=== PATIENT | male | born 1950 | race Two or more races ===

== ENCOUNTER 2017-07-31 13:17 | Outpatient (CLI) | payer MEDICARE, MEDICAID ==
[~2017-07-31 13:17] MED LIST: BYSTOLIC 10MG10 MG PO; CARAFATE1 G1 ORAL; CIMETIDINE800 MG ORAL; CLINDAMYCIN HC300 MG ORAL; DIOVAN80 MG ORAL; FENOFIBRATE130 MG; FINASTERIDE5 MG; GABAPENTIN300 MG PO; GLUCOPHAGE500 MG ORAL; HYDROCODON-ACE1 EA16 PO; INTELENCE200 MG PO; ISENTRESS400 MG ORAL; LEVEMIR100 UNITS/ SQ; LEVOTHYROXINE50 MCG; LIVALO4 MG PO; LORAZEPAM1 MG PO; MONTELUKAST SOD10 MG; MONTELUKAST SOD10 MG PO; NORCO 10/3251 EA ORAL; NORCO 5-325 TA1 EACH ORAL; PAROXETINE HCL20 MG PO; PRISTIQ ER50 MG PO; PROAIR HFA8.5 GM INH; SELZENTRY150 MG ORAL; SELZENTRY150 MG PO; SPIRIVA18 MCG; SYNTHROID50 MCG ORAL; TESTOSTERO200 MG/1 M IM; TRUVADA 200 MG1 EAC1 PO; TRUVADA1 TAB; Vit D PO; XARELTO10 MG PO; XARELTO20 MG; vit d PO
--- NOTE | 2017-07-31 15:00 | Diagnostic Imaging Report ---
APPROVED REPORT CPT Code: 22889 Symptoms Comments: Claudication BILATERAL: Common femoral artery waveform analysis is within normal limits at rest. Color flow duplex sonography reveals minimal calcification throughout the superficial femoral, and popliteal arteries. There is no evidence of stenosis or occlusion within these segments. The tibioperoneal trunks were patent. The posterior tibial, anterior tibial and dorsalis pedis arteries are also patent. JAVIER: Ankle brachial indices and Doppler tibial artery waveform analyses are within Right Leg JAVIER 1.1 Left Leg JAVIER 1.1
== END 2017-07-31 15:17 | disposition home or self-care (01) ==
LOC: VAS 13:17
DX: I73.9 Peripheral vascular disease, unspecified (principal)
CPT/HCPCS: 93925

== ENCOUNTER 2018-05-21 10:21 | Outpatient (CLI) | payer MEDICARE, MEDICAID ==
--- NOTE | 2018-05-21 11:10 | Diagnostic Imaging Report ---
Indication: Osteoporosis Technique: 10 mm thick slices obtained through the L2, L3, and L4 vertebral bodies. Cortical and trabecular regions of interest were drawn. The average trabecular bone mineral density was calculated. Total dose length product 44.52 mGycm. CTDIvol(s) 7, 8, 7 mGy. Dose reduction achieved using automated exposure control Comparison: none Findings: The calculated bone mineral density is 84.9 mg ca-PRINCE/ml. The T score is -3.39. This indicates the patient's bone mineral density is 3.39 standard deviations below that of normal 20-year-old males. The Z score is -0.48. This indicates the patient's bone mineral density is 0.48 standard deviations below that of age-matched controls Impression: Patient's bone mineral density is greater than 25% below that of normal 20-year-old males. Patient is considered osteoporotic by WHO criteria. Insufficiency fracture risk is high. Patient should be considered for therapy, if not already initiated, with followup scan in one year to monitor response to therapy. The CT scanner at [facility] is accredited by the [employer] and the scans are performed using protocols designed to limit radiation exposure to as low as reasonably achievable to attain images of sufficient resolution adequate for diagnostic evaluation.
== END 2018-05-21 12:21 | disposition home or self-care (01) ==
LOC: CAT 10:21
DX: M81.0 Age-related osteoporosis without current pathological fracture (principal)
CPT/HCPCS: 77078

== ENCOUNTER 2018-08-30 19:48 | Inpatient (IN) | payer MEDICARE, MEDICAID ==
[~2018-08-30] VITALS: Ht 170.2 cm; Wt 104.8 kg
[2018-08-30 20:20] VITALS: BP 139/82
[2018-08-30 21:24] LABS: APPEARANCE,URINE CLEAR; BILIRUBIN, URINE NEGATIVE (NEGATIVE); COLOR,URINE PALE YELLOW; GLUCOSE, URINE (UA) 1+ (NEGATIVE); KETONES,URINE NEGATIVE (NEGATIVE); LEUKOCYTE ESTERASE ,URINE NEGATIVE (NEGATIVE); NITRITE,URINE NEGATIVE (NEGATIVE); PH,URINE 5 (4.5-8.0); PROTEIN,URINE 1+ (NEGATIVE); UROBILINOGEN,URINE NORMAL MG/DL (0.0-1.0)
[2018-08-30] MEDS ORDERED: Vancomycin 1.5gm/D5W 250ml 250 ML IVPB ONE (22:00)
[2018-08-30 22:10] LABS: BASOPHILS % (AUTO) 1.2 % (0.0-2.0); HEMATOCRIT 37.9 % (42.0-52.0); HEMOGLOBIN 13.4 G/DL (14.2-18.0); LYMPHOCYTES % (AUTO) 41.6 % (20.0-45.0); MEAN CORPUSCULAR VOLUME 89 FL (80-99); MONOCYTES % (AUTO) 8.7 % (1.0-10.0); NEUTROPHILS % (AUTO) 46.5 % (45.0-75.0); PLATELET COUNT 142 K/UL (150-450); RED BLOOD COUNT 4.24 M/UL (4.70-6.10); RED CELL DISTRIBUTION WIDTH 10.8 % (11.6-14.8); WHITE BLOOD COUNT 4.1 K/UL (4.8-10.8)
[2018-08-30] MEDS ORDERED: Norco 5mg/325mg tab ORAL PRN (22:30)
[2018-08-30] MEDS ORDERED: Miralax 17gm pkt ORAL PRN (22:30)
[2018-08-30 22:33] LABS: ANION GAP 8 mmol/L (5-15); BLOOD UREA NITROGEN 19 mg/dL (7-18); CALCIUM 8.7 MG/DL (8.5-10.1); CARBON DIOXIDE 30 MMOL/L (21-32); CHLORIDE 101 MMOL/L (98-107); CREATININE 1.4 MG/DL (0.55-1.30); POTASSIUM 3.8 MMOL/L (3.5-5.1); SODIUM 138 MMOL/L (136-145)
[2018-08-30 22:38] LABS: ALANINE AMINOTRANSFERASE 53 U/L (12-78); ALBUMIN 3.9 G/DL (3.4-5.0); ALKALINE PHOSPHATASE 92 U/L (46-116); ASPARTATE AMINO TRANSFERASE 26 U/L (15-37); BILIRUBIN,TOTAL 0.3 MG/DL (0.2-1.0)
[2018-08-30] MEDS ORDERED: Albuterol/Ipratropium 3ml neb HHN PRN (22:45)
[2018-08-30] MEDS: Docusate 100mg cap ORAL SCH ×2 (22:45→23:52)
--- NOTE | 2018-08-30 22:51 | Emergency Room Report ---
History of Present Illness General Chief Complaint: Skin Rash/Abscess Source: Patient Present Illness HPI 67-year-old male presents ED complaining of pain to his right lower extremity. States he has an ulcer on his right leg for several months now but is getting progressively worse. Has not sought medical attention for it yet. Pain is throbbing, 8 out of 10, nonradiating. Notes history of HIV. States he is diabetic. Denies fevers or chills. No other aggravating relieving factors. Denies any other associated symptoms Allergies: Coded Allergies: ABACAVIR (Verified Allergy, Unknown, 01/29/09) DIDANOSINE (Verified Allergy, Unknown, 01/29/09) EFAVIRENZ (Verified Allergy, Unknown, 01/29/09) FOSAMPRENAVIR (Verified Allergy, Unknown, 01/29/09) INDINAVIR (Verified Allergy, Unknown, 08/30/18) SULFAMETHOXAZOLE (Verified Allergy, Unknown, 01/29/09) TRIMETHOPRIM (Verified Allergy, Unknown, 01/29/09) HYDROMORPHONE (Verified Adverse Reaction, Unknown, VOMITS, 06/12/12) Patient History Past Medical History: DM, HTN, asthma, COPD Pertinent Family History: none Social History: Denies: smoking, alcohol use, drug use Immunizations: UTD Reviewed Nursing Documentation: PMH: Agreed; PSxH: Agreed Nursing Documentation-PMH Hx Cardiac Problems: Yes Hx Hypertension: Yes Hx Pacemaker: No - HIV positive Hx Asthma: Yes Hx COPD: Yes Hx Diabetes: Yes Hx Cancer: Yes - lymphoma Hx Gastrointestinal Problems: Yes Hx Neurological Problems: No Hx Dizziness: Yes Review of Systems All Other Systems: negative except mentioned in HPI Physical Exam Vital Signs Date Time Temp Pulse Resp B/P (MAP) Pulse Ox O2 Delivery O2 Flow Rate FiO2 08/30/18 20:07 97.5 87 18 139/82 95 Room Air Sp02 EP Interpretation: reviewed, normal General Appearance: no apparent distress, alert, GCS 15, non-toxic Head: normocephalic, atraumatic Eyes: bilateral eye normal inspection, bilateral eye PERRL ENT: hearing grossly normal, normal pharynx, no angioedema, normal voice Neck: full range of motion, supple/symm/no masses Respiratory: chest non-tender, lungs clear, normal breath sounds, speaking full sentences Cardiovascular #1: regular rate, rhythm, no edema Cardiovascular #2: 2+ carotid (R), 2+ carotid (L), 2+ radial (R), 2+ radial (L) , 2+ dorsalis pedis (R), 2+ dorsalis pedis (L) Gastrointestinal: normal bowel sounds, non tender, soft, non-distended, no guarding, no rebound Rectal: deferred Genitourinary: normal inspection, no CVA tenderness Musculoskeletal: swelling - RLE Neurologic: alert, oriented x3, responsive, motor strength/tone normal, sensory intact, speech normal Psychiatric: normal inspection Reflexes: 3+ bicep (R), 3+ bicep (L), 3+ tricep (R), 3+ tricep (L), 3+ knee (R) , 3+ knee (L) Skin: other - ulcer to RLE Lymphatic: normal inspection Medical Decision Making Diagnostic Impression: Primary Impression: HIV (human immunodeficiency virus infection) Additional Impression: Cellulitis of right leg ER Course Hospital Course 67-year-old male presents to ED with redness, swelling to RLE Differential diagnoses include: Cellulitis, DVT, abscess, rash. Clinical course Patient placed on stretcher. After initial history and physical I ordered labs , blood Cx, UA, IVFs, doppler US of RLE labs reviewed - no leukocytosis, Hb/Hct stable, no electrolyte abnormalities. Doppler US - no evidence of DVT wound culture obtained antibiotics given. Case discussed with Dr Aamdor and he agreed to accept the patient to his service for further care and support Diagnosis - HIV, cellulitis of right leg Patient admitted to floor in serious condition Labs Test 08/30/18 21:06 08/30/18 21:30 Urine Color Pale yellow Urine Appearance Clear Urine pH 5 (4.5-8.0) Urine Specific [place] 1.025 (1.005-1.035) Urine Protein 1+ (NEGATIVE) Urine Glucose (UA) 1+ (NEGATIVE) Urine Ketones Negative (NEGATIVE) Urine Blood 1+ (NEGATIVE) Urine Nitrite Negative (NEGATIVE) Urine Bilirubin Negative (NEGATIVE) Urine Urobilinogen Normal MG/DL (0.0-1.0) Urine Leukocyte Esterase Negative (NEGATIVE) Urine RBC 2-4 /HPF (0 - 0) Urine WBC 0-2 /HPF (0 - 0) Urine Squamous Epithelial Cells None /LPF (NONE/OCC) Urine Bacteria Few /HPF (NONE) White Blood Count 4.1 K/UL (4.8-10.8) Red Blood Count 4.24 M/UL (4.70-6.10) Hemoglobin 13.4 G/DL (14.2-18.0) Hematocrit 37.9 % (42.0-52.0) Mean Corpuscular Volume 89 FL (80-99) Mean Corpuscular Hemoglobin 31.6 PG (27.0-31.0) Mean Corpuscular Hemoglobin Concent 35.3 G/DL (32.0-36.0) Red Cell Distribution Width 10.8 % (11.6-14.8) Platelet Count 142 K/UL (150-450) Mean Platelet Volume 7.4 FL (6.5-10.1) Neutrophils (%) (Auto) 46.5 % (45.0-75.0) Lymphocytes (%) (Auto) 41.6 % (20.0-45.0) Monocytes (%) (Auto) 8.7 % (1.0-10.0) Eosinophils (%) (Auto) 2.0 % (0.0-3.0) Basophils (%) (Auto) 1.2 % (0.0-2.0) Sodium Level 138 MMOL/L (136-145) Potassium Level 3.8 MMOL/L (3.5-5.1) Chloride Level 101 MMOL/L (98-107) Carbon Dioxide Level 30 MMOL/L (21-32) Anion Gap 8 mmol/L (5-15) Blood Urea Nitrogen 19 mg/dL (7-18) Creatinine 1.4 MG/DL (0.55-1.30) Estimat Glomerular Filtration Rate 50.9 mL/min (>60) Glucose Level 227 MG/DL (74-106) Lactic Acid Level 2.20 mmol/L (0.4-2.0) Calcium Level 8.7 MG/DL (8.5-10.1) Total Bilirubin 0.3 MG/DL (0.2-1.0) Aspartate Amino Transf (AST/SGOT) 26 U/L (15-37) Alanine Aminotransferase (ALT/SGPT) 53 U/L (12-78) Alkaline Phosphatase 92 U/L (46-116) Total Protein 8.0 G/DL (6.4-8.2) Albumin 3.9 G/DL (3.4-5.0) Globulin 4.1 g/dL Albumin/Globulin Ratio 1.0 (1.0-2.7) CT/MRI/US Diagnostic Results CT/MRI/US Diagnostic Results : Imaging Test Ordered: Venous Duplex Impression no evidence of DVT Last Vital Signs Date Time Temp Pulse Resp B/P (MAP) Pulse Ox O2 Delivery O2 Flow Rate FiO2 08/30/18 20:20 97.5 82 18 139/82 95 Room Air Status: improved Disposition: ADMITTED INPATIENT Condition: Serious Referrals: NON PHYSICIAN (PCP) Shree Baker MD Aug 30, 2018 22:51
[2018-08-30] MEDS: HYDROcodone/Acetamin 7.5/325 tab ORAL PRN (23:51)
[2018-08-31] VITALS (7 sets, daily range): BP systolic 137–149; BP diastolic 70–88
[2018-08-31] MEDS ORDERED: NIACIN500 M3 PO (03:53)
[2018-08-31] MEDS ORDERED: BENICAR20 MG ORAL (03:53)
[2018-08-31] MEDS ORDERED: ASPIRIN81 M3 PO (03:53)
[2018-08-31] MEDS ORDERED: FUROSEMIDE20 M1 ORAL (03:53)
[2018-08-31] MEDS ORDERED: TIVICAY50 MG ORAL (03:53)
[2018-08-31] MEDS ORDERED: ZOVIRAX OINT1 APPLI1 TOPIC ×2 (03:53)
[2018-08-31] MEDS ORDERED: ECONAZOLE NITRA30 GM TP (03:53)
[2018-08-31] MEDS ORDERED: ZANTAC150 MG ORAL (03:53)
[2018-08-31] MEDS ORDERED: DIPHENHYDRAMINE50 M1 ORAL (03:53)
[2018-08-31] MEDS: HYDROcodone/Acetamin 7.5/325 tab ORAL PRN ×3 (06:01→23:25)
[2018-08-31] MEDS: NovoLOG Insulin Flexpen SUBQ SCH ×4 (06:03→20:30)
[2018-08-31 07:07] LABS: ANION GAP 10 mmol/L (5-15); BLOOD UREA NITROGEN 19 mg/dL (7-18); CALCIUM 8.4 MG/DL (8.5-10.1); CARBON DIOXIDE 26 MMOL/L (21-32); CHLORIDE 102 MMOL/L (98-107); CREATININE 1.2 MG/DL (0.55-1.30); POTASSIUM 3.9 MMOL/L (3.5-5.1); SODIUM 138 MMOL/L (136-145)
[2018-08-31 07:19] LABS: HEMATOCRIT 35.8 % (42.0-52.0); HEMOGLOBIN 12.6 G/DL (14.2-18.0); MEAN CORPUSCULAR VOLUME 91 FL (80-99); PLATELET COUNT 108 K/UL (150-450); RED BLOOD COUNT 3.93 M/UL (4.70-6.10); RED CELL DISTRIBUTION WIDTH 11.1 % (11.6-14.8); WHITE BLOOD COUNT 2.9 K/UL (4.8-10.8)
--- NOTE | 2018-08-31 08:23 | History and Physical ---
History of Present Illness General Date patient seen: Aug 31, 2018 Time patient seen: 08:14 Reason for Hospitalization: Skin Rash/Abscess Present Illness HPI 67 yo male with h/o HIV, DM, HTN presents with complainst of pain of his right LE. states he has an ulcer of the right leg for 1 month and has been getting worse. States pain is 8/10, throbbing in nature, nonradiating. Denies any fevers /chills, no nausea/vomiting. States he is compliant with his medications at home. Social Hx: reviewed denies any smoking, alcohol use, or drug use fam hx: reviewed, denies any sig past fam hx. code status reviewed, would like to remain full code. 67-year-old male presents ED complaining of pain to his right lower extremity. States he has an ulcer on his right leg for several months now but is getting progressively worse. Has not sought medical attention for it yet. Pain is throbbing, 8 out of 10, nonradiating. Notes history of HIV. States he is diabetic. Denies fevers or chills. No other aggravating relieving factors. Denies any other associated symptoms Allergies: Coded Allergies: ABACAVIR (Verified Allergy, Unknown, 01/29/09) DIDANOSINE (Verified Allergy, Unknown, 01/29/09) EFAVIRENZ (Verified Allergy, Unknown, 01/29/09) FOSAMPRENAVIR (Verified Allergy, Unknown, 01/29/09) INDINAVIR (Verified Allergy, Unknown, 08/30/18) SULFAMETHOXAZOLE (Verified Allergy, Unknown, 01/29/09) TRIMETHOPRIM (Verified Allergy, Unknown, 01/29/09) HYDROMORPHONE (Verified Adverse Reaction, Unknown, VOMITS, 06/12/12) Medication History Scheduled Acyclovir (Zovirax), 1 APPLIC TOPIC PRN, (Reported) Albuterol Sulfate* (Proair Hfa*), 2 PUFFS INH Q6H, (Reported) Aspirin (Aspirin), 81 MG PO DAILY, (Reported) Bysto (Bystolic), 10 MG PO BID, (Reported) Cimetidine (Cimetidine), 1,600 MG ORAL BEDTIME, (Reported) Clindamycin Hcl (Clindamycin Hcl), 300 MG ORAL FOUR TIMES A DAY Desvenlafaxine Succinate (Pristiq Er), 50 MG PO DAILY, (Reported) Dolutegravir Sodium (Tivicay), 50 MG ORAL DAILY, (Reported) Econazole Nitrate (Econazole Nitrate), 30 GM TP PRN, (Reported) Etravirine (Intelence), PO BID, (Reported) Fenofibrate,Micronized (Fenofibrate), DAILY, (Reported) Finasteride (Finasteride), DAILY, (Reported) Furosemide* (Lasix*), 20 MG ORAL DAILY, (Reported) Gabapentin* (Gabapentin*), 300 MG PO TID, (Reported) Hydrocodone/Acetaminophen 7.5-325* (Hydrocodon-Acetaminoph 7.5-325*), 1 EACH PO q6h prn, (Reported) Insulin Detemir (Levemir), 30 UNITS SQ DAILY, (Reported) Levothyroxine Sodium (Synthroid), 50 MCG ORAL DAILY, (Reported) Levothyroxine Sodium* (Levothyroxine Sodium*), ACBREAKFAST, (Reported) Lorazepam* (Lorazepam*), 1 MG PO q8h prn, (Reported) Maraviroc* (Selzentry*), 600 MG ORAL EVERY 12 HOURS, (Reported) Metformin Hcl* (Glucophage*), 1,000 MG ORAL TWICE A DAY, (Reported) Montelukast Sodium* (Montelukast Sodium*), DAILY, (Reported) Niacin (Niacin), 500 MG PO DAILY, (Reported) Olmesartan Medoxomil (Benicar), 20 MG ORAL DAILY, (Reported) Paroxetine Hcl* (Paxil*), 20 MG PO DAILY, (Reported) Pitavastatin Calcium (Livalo), 4 MG PO HS, (Reported) Ranitidine Hcl* (Zantac*), 150 MG ORAL DAILY, (Reported) Rivaroxaban (Xarelto*), 10 MG PO DAILY, (Reported) Sucralfate* (Carafate*), 1 GM ORAL FIVE TIMES A DAY, (Reported) Tiotropium [place]* (Spiriva*), DAILY, (Reported) Valsartan (Diovan), 80 MG ORAL DAILY, (Reported) Scheduled PRN Diphenhydramine Hcl (Diphenhydramine Hcl), 50 MG ORAL BEDTIME PRN for Itching, ( Reported) Hydrocodone Bit/Acetaminophen 5-325* ([place] 5-325*), 1 TAB ORAL Q6H PRN for For Pain Miscellaneous Medications Acyclovir (Zovirax), 1 APPLIC TOPIC, (Reported) Discontinued Medications Emtricitabine/Tenofovir (Truvada 200 mg-300 mg Tablet), DAILY, (Reported) Discontinued Reason: Pt stopped taking med Raltegravir (Isentress), 400 MG ORAL BID, (Reported) Discontinued Reason: Pt stopped taking med Patient History History Provided By: Patient Healthcare decision maker Resuscitation status Full Code Advanced Directive on File Family History Family History: Patient reports no known family medical history. Review of Systems Constitutional: Denies: no symptoms, see HPI, chills, sweats, fever, malaise, weakness, other Eye: Denies: no symptoms, see HPI, eye pain, blurred vision, tearing, double vision, nose pain, nose congestion, acuity changes, discharge, other ENT: Denies: no symptoms, see HPI, ear pain, ear discharge, nose pain, nose congestion, throat pain, throat swelling, mouth pain, hearing loss, nasal discharge, other Respiratory: Denies: no symptoms, see HPI, cough, orthopnea, shortness of breath, stridor, wheezing, LANDRY, sputum, other Cardiovascular: Denies: no symptoms, see HPI, chest pain, edema, palpitations, syncope, PND, other Gastrointestinal: Denies: no symptoms, see HPI, abdominal pain, constipation, diarrhea, nausea, vomiting, melena, hematemesis, other Genitourinary: Denies: no symptoms, see HPI, discharge, dysuria, frequency, hematuria, pain, retention, incontinence, urgency, vag bleed/dc, other Musculoskeletal: Denies: no symptoms, see HPI, back pain, gout, joint pain, joint swelling, muscle pain, muscle stiffness, other Skin: Reports: change in color - clear drainage from right lower extremity ; Denies: no symptoms, see HPI, rash, change in hair/nails, dryness, lesions, other Psychiatric: Denies: no symptoms, see HPI, prior hx, anxiety, depressed feelings, emotional problems, SI, HI, hallucinations, other Neurological: Denies: no symptoms, see HPI, headache, numbness, paresthesia, seizure, tingling, tremors, focal weakness, syncope, dizziness, other Endocrine: Denies: no symptoms, see HPI, excessive sweating, flushing, intolerance to temperature, increased thirst, increased urine, unexplained weight loss, other Hematologic/Lymphatic: Denies: no symptoms, see HPI, anemia, blood clots, easy bleeding, easy bruising, swollen glands, diathesis, other Physical Exam General Appearance: no apparent distress, alert Lines, tubes and drains: peripheral HEENT: normocephalic, atraumatic, anicteric, mucous membranes moist, PERRL Neck: non-tender, normal alignment, supple, normal inspection Respiratory/Chest: chest wall non-tender, lungs clear, normal breath sounds, no respiratory distress, no accessory muscle use Cardiovascular/Chest: normal peripheral pulses, normal rate, regular rhythm Abdomen: normal bowel sounds, non tender, soft, no organomegaly, no mass Extremities: normal range of motion, other - right LE mild ttp at area of ulcer Skin Exam: normal pigmentation, warm/dry, other - right LE 1.5cm ulcer with clear drainage. Neurologic: post secondary professional II-XII grossly normal, no motor/sensory deficits, alert, oriented x 3 Musculoskeletal: normal muscle bulk Last 24 Hour Vital Signs Date Time Temp Pulse Resp B/P (MAP) Pulse Ox O2 Delivery O2 Flow Rate FiO2 08/31/18 04:00 97.4 73 20 147/70 (95) 95 08/31/18 00:00 98.1 20 149/82 (104) 08/30/18 23:15 Room Air 08/30/18 22:45 98.1 68 18 137/70 95 Room Air 08/30/18 20:20 97.5 82 18 139/82 95 Room Air 08/30/18 20:07 97.5 87 18 139/82 Room Air Intake and Output 08/30/18 08/31/18 18:59 06:59 Intake Total 0 ml Balance 0 ml Intake Oral 0 ml # Voids 1 Laboratory Tests Test 08/30/18 21:06 08/30/18 21:30 08/31/18 05:45 Urine Color Pale yellow Urine Appearance Clear Urine pH 5 (4.5-8.0) Urine Specific [place] 1.025 (1.005-1.035) Urine Protein 1+ (NEGATIVE) H Urine Glucose (UA) 1+ (NEGATIVE) H Urine Ketones Negative (NEGATIVE) Urine Blood 1+ (NEGATIVE) H Urine Nitrite Negative (NEGATIVE) Urine Bilirubin Negative (NEGATIVE) Urine Urobilinogen Normal MG/DL (0.0-1.0) Urine Leukocyte Esterase Negative (NEGATIVE) Urine RBC 2-4 /HPF (0 - 0) H Urine WBC 0-2 /HPF (0 - 0) Urine Squamous Epithelial Cells None /LPF (NONE/OCC) Urine Bacteria Few /HPF (NONE) White Blood Count 4.1 K/UL (4.8-10.8) L 2.9 K/UL (4.8-10.8) L Red Blood Count 4.24 M/UL (4.70-6.10) L 3.93 M/UL (4.70-6.10) L Hemoglobin 13.4 G/DL (14.2-18.0) L 12.6 G/DL (14.2-18.0) L Hematocrit 37.9 % (42.0-52.0) L 35.8 % (42.0-52.0) L Mean Corpuscular Volume 89 FL (80-99) 91 FL (80-99) Mean Corpuscular Hemoglobin 31.6 PG (27.0-31.0) H 32.1 PG (27.0-31.0) H Mean Corpuscular Hemoglobin Concent 35.3 G/DL (32.0-36.0) 35.2 G/DL (32.0-36.0) Red Cell Distribution Width 10.8 % (11.6-14.8) L 11.1 % (11.6-14.8) L Platelet Count 142 K/UL (150-450) L 108 K/UL (150-450) L Mean Platelet Volume 7.4 FL (6.5-10.1) 8.2 FL (6.5-10.1) Neutrophils (%) (Auto) 46.5 % (45.0-75.0) % (45.0-75.0) Lymphocytes (%) (Auto) 41.6 % (20.0-45.0) % (20.0-45.0) Monocytes (%) (Auto) 8.7 % (1.0-10.0) % (1.0-10.0) Eosinophils (%) (Auto) 2.0 % (0.0-3.0) % (0.0-3.0) Basophils (%) (Auto) 1.2 % (0.0-2.0) % (0.0-2.0) Sodium Level 138 MMOL/L (136-145) 138 MMOL/L (136-145) Potassium Level 3.8 MMOL/L (3.5-5.1) 3.9 MMOL/L (3.5-5.1) Chloride Level 101 MMOL/L (98-107) 102 MMOL/L (98-107) Carbon Dioxide Level 30 MMOL/L (21-32) 26 MMOL/L (21-32) Anion Gap 8 mmol/L (5-15) 10 mmol/L (5-15) Blood Urea Nitrogen 19 mg/dL (7-18) H 19 mg/dL (7-18) H Creatinine 1.4 MG/DL (0.55-1.30) H 1.2 MG/DL (0.55-1.30) Estimat Glomerular Filtration Rate 50.9 mL/min (>60) > 60 mL/min (>60) Glucose Level 227 MG/DL (74-106) H 218 MG/DL (74-106) H Lactic Acid Level 2.20 mmol/L (0.4-2.0) H Calcium Level 8.7 MG/DL (8.5-10.1) 8.4 MG/DL (8.5-10.1) L Total Bilirubin 0.3 MG/DL (0.2-1.0) Aspartate Amino Transf (AST/SGOT) 26 U/L (15-37) Alanine Aminotransferase (ALT/SGPT) 53 U/L (12-78) Alkaline Phosphatase 92 U/L (46-116) Total Protein 8.0 G/DL (6.4-8.2) Albumin 3.9 G/DL (3.4-5.0) Globulin 4.1 g/dL Albumin/Globulin Ratio 1.0 (1.0-2.7) Neutrophils % (Manual) Pending Lymphocytes % (Manual) Pending Platelet Estimate Pending Platelet Morphology Pending Magnesium Level 1.7 MG/DL (1.8-2.4) L Height (Feet): 5 Height (Inches): 7.00 Weight (Pounds): 230 Medications Current Medications Medications (Trade) Dose Ordered Sig/[place] Cruz Route PRN Reason Start Time Stop Time Status Last Admin Dose Admin Acetaminophen (Tylenol) 650 mg Q4H PRN ORAL Mild Pain (Pain Scale 1-3) 08/30/18 22:30 09/29/18 22:29 Acetaminophen (Tylenol) 650 mg Q4H PRN ORAL fever 08/30/18 22:30 09/29/18 22:29 Acetaminophen/ Hydrocodone Bitart ([place] 5/325) 1 tab Q6H PRN ORAL For Pain 08/30/18 22:30 09/06/18 22:29 Acetaminophen/ Hydrocodone Bitart ([place] 7.5/325) 1 tab Q4H PRN ORAL severe pain 08/30/18 22:30 09/06/18 22:29 08/31/18 06:01 Albuterol/ Ipratropium (Albuterol/ Ipratropium) 3 ml Q4H PRN HHN Shortness of Breath 08/30/18 22:45 09/04/18 22:44 Bisacodyl (Dulcolax) 10 mg HSPRN PRN RECTAL Constipation 08/30/18 22:30 09/29/18 22:29 Dextrose (Dextrose 50%) 25 ml Q30M PRN IV Hypoglycemia 08/30/18 22:30 09/29/18 22:29 Dextrose (Dextrose 50%) 50 ml Q30M PRN IV Hypoglycemia 08/30/18 22:30 09/29/18 22:29 Docusate Sodium (Colace) 100 mg EVERY 12 HOURS ORAL 08/30/18 22:45 09/29/18 22:44 Finasteride (Proscar) 5 mg DAILY ORAL 08/31/18 09:00 09/30/18 08:59 Gabapentin (Neurontin) 300 mg TID ORAL 08/31/18 09:00 09/30/18 08:59 Heparin Sodium (Porcine) (Heparin 5000 units/ml) 5,000 units EVERY 12 HOURS SUBQ 08/31/18 09:00 09/30/18 08:59 Insulin Aspart (NovoLOG) BEFORE MEALS AND HS SUBQ 08/31/18 06:30 09/30/18 06:29 08/31/18 06:03 Levothyroxine Sodium (Synthroid) 50 mcg DAILY@0630 ORAL 08/31/18 06:30 09/30/18 06:29 08/31/18 06:01 Montelukast Sodium (Singulair) 10 mg DAILY ORAL 08/31/18 09:00 09/30/18 08:59 Nebivolol (Bystolic) 10 mg BID ORAL 08/31/18 09:00 09/30/18 08:59 Ondansetron HCl (Zofran) 4 mg Q6H PRN IVP Nausea & Vomiting 08/30/18 22:30 09/29/18 22:29 Paroxetine HCl (Paxil) 20 mg DAILY ORAL 08/31/18 09:00 09/30/18 08:59 Patient Own Medication (Patient's Own Med) 1 ea BID ORAL 08/31/18 09:00 09/30/18 08:59 Patient Own Medication (Patient's Own Med) 1 ea DAILY ORAL 08/31/18 09:00 09/30/18 08:59 Patient Own Medication (Patient's Own Med) 1 ea DAILY ORAL 08/31/18 09:00 09/30/18 08:59 Polyethylene Glycol (Miralax) 17 gm HSPRN PRN ORAL Constipation 08/30/18 22:30 09/29/18 22:29 Tiotropium [place] (Spiriva Inhaler) 1 puff DAILY INH 08/31/18 09:00 09/30/18 08:59 Vancomycin HCl (Vanco rx to dose) 1 ea DAILY PRN MISC Per rx protocol 08/30/18 22:30 09/29/18 22:29 Vancomycin HCl/ Dextrose 250 ml @ 125 mls/hr Q24H IVPB 08/31/18 22:00 09/05/18 21:59 Assessment/Plan Problem List: (1) Ulcer of right leg Assessment & Plan: cont vancomycin vasc duplex reviewed, neg acute, no claudication completed ID consulted, appreciate recs fluids cx sent ICD Codes: L97.919 - Non-pressure chronic ulcer of unspecified part of right lower leg with unspecified severity SNOMED: 23882884 (2) Cellulitis of right leg Assessment & Plan: cont abx as per #1 ICD Codes: L03.115 - Cellulitis of right lower limb SNOMED: 871570111 (3) HIV (human immunodeficiency virus infection) Assessment & Plan: resume home meds stable ICD Codes: Z21 - Asymptomatic human immunodeficiency virus [HIV] infection status SNOMED: 50182618 (4) COPD (chronic obstructive pulmonary disease) Assessment & Plan: stable no acute resp failure ICD Codes: J44.9 - Chronic obstructive pulmonary disease, unspecified SNOMED: 40516510 (5) Diabetes Assessment & Plan: iss accuchecks ICD Codes: E11.9 - Diabetes SNOMED: 24865110 Qualifiers: Qualified Codes: E11.51 - Type 2 diabetes mellitus with diabetic peripheral angiopathy without gangrene; Z79.4 - halfway (current) use of insulin (6) Hypertension Assessment & Plan: stable resume home meds monitor vitals ICD Codes: I10 - Hypertension SNOMED: 56090529 Status: stable Assessment/Plan ppx: heparin diet: ccd5 I have spent spend over 66 minutes regarding patient care and counseling and over 40 minutes of face to face time with the patient Jenae Cordoba MD Aug 31, 2018 08:23
[2018-08-31] MEDS ORDERED: PARoxetine 20mg tab ORAL SCH (09:00)
[2018-08-31] MEDS: Docusate 100mg cap ORAL SCH ×2 (09:00→20:40)
[2018-08-31] MEDS ORDERED: Isentress 400mg tab ORAL SCH (09:00)
[2018-08-31] MEDS: Montelukast 10mg tablet ORAL SCH (09:34)
[2018-08-31] MEDS: DESCOVY ORAL SCH (09:35)
[2018-08-31] MEDS: Patient's Own Med - Tivicay 50mg ORAL SCH (09:35)
[2018-08-31] MEDS: Heparin 5000 units/ml inj SUBQ SCH ×2 (09:40→20:31)
--- NOTE | 2018-08-31 12:15 | Diagnostic Imaging Report ---
Indication: Right leg pain and edema Technique: Grayscale and duplex images of the right lower extremity veins. Comparison: none Findings: Grayscale and duplex images demonstrate no evidence of intraluminal thrombus. Normal phasic Doppler waveforms, demonstrating normal augmentation response. Normal compressibility of all deep venous structures. No evidence of valvular insufficiency. Impression: Negative for evidence of deep venous thrombosis
--- NOTE | 2018-08-31 13:29 | Consultation ---
History of Present Illness General Chief Complaint: Skin Rash/Abscess Present Illness HPI 67-year-old male presents ED complaining of pain to his right lower extremity. the pt has anxiety and depression. the pt has been started on paxil am and giving him insomnia.t he pt is Hebrew speaking,. the pt has no si/hi Allergies: Coded Allergies: ABACAVIR (Verified Allergy, Unknown, 01/29/09) DIDANOSINE (Verified Allergy, Unknown, 01/29/09) EFAVIRENZ (Verified Allergy, Unknown, 01/29/09) FOSAMPRENAVIR (Verified Allergy, Unknown, 01/29/09) INDINAVIR (Verified Allergy, Unknown, 08/30/18) SULFAMETHOXAZOLE (Verified Allergy, Unknown, 01/29/09) TRIMETHOPRIM (Verified Allergy, Unknown, 01/29/09) HYDROMORPHONE (Verified Adverse Reaction, Unknown, VOMITS, 06/12/12) Medication History Scheduled Acyclovir (Zovirax), 1 APPLIC TOPIC PRN, (Reported) Albuterol Sulfate* (Proair Hfa*), 2 PUFFS INH Q6H, (Reported) Aspirin (Aspirin), 81 MG PO DAILY, (Reported) Bysto (Bystolic), 10 MG PO BID, (Reported) Cimetidine (Cimetidine), 1,600 MG ORAL BEDTIME, (Reported) Clindamycin Hcl (Clindamycin Hcl), 300 MG ORAL FOUR TIMES A DAY Desvenlafaxine Succinate (Pristiq Er), 50 MG PO DAILY, (Reported) Dolutegravir Sodium (Tivicay), 50 MG ORAL DAILY, (Reported) Econazole Nitrate (Econazole Nitrate), 30 GM TP PRN, (Reported) Etravirine (Intelence), PO BID, (Reported) Fenofibrate,Micronized (Fenofibrate), DAILY, (Reported) Finasteride (Finasteride), DAILY, (Reported) Furosemide* (Lasix*), 20 MG ORAL DAILY, (Reported) Gabapentin* (Gabapentin*), 300 MG PO TID, (Reported) Hydrocodone/Acetaminophen 7.5-325* (Hydrocodon-Acetaminoph 7.5-325*), 1 EACH PO q6h prn, (Reported) Insulin Detemir (Levemir), 30 UNITS SQ DAILY, (Reported) Levothyroxine Sodium (Synthroid), 50 MCG ORAL DAILY, (Reported) Levothyroxine Sodium* (Levothyroxine Sodium*), ACBREAKFAST, (Reported) Lorazepam* (Lorazepam*), 1 MG PO q8h prn, (Reported) Maraviroc* (Selzentry*), 600 MG ORAL EVERY 12 HOURS, (Reported) Metformin Hcl* (Glucophage*), 1,000 MG ORAL TWICE A DAY, (Reported) Montelukast Sodium* (Montelukast Sodium*), DAILY, (Reported) Niacin (Niacin), 500 MG PO DAILY, (Reported) Olmesartan Medoxomil (Benicar), 20 MG ORAL DAILY, (Reported) Paroxetine Hcl* (Paxil*), 20 MG PO DAILY, (Reported) Pitavastatin Calcium (Livalo), 4 MG PO HS, (Reported) Ranitidine Hcl* (Zantac*), 150 MG ORAL DAILY, (Reported) Rivaroxaban (Xarelto*), 10 MG PO DAILY, (Reported) Sucralfate* (Carafate*), 1 GM ORAL FIVE TIMES A DAY, (Reported) Tiotropium [place]* (Spiriva*), DAILY, (Reported) Valsartan (Diovan), 80 MG ORAL DAILY, (Reported) Scheduled PRN Diphenhydramine Hcl (Diphenhydramine Hcl), 50 MG ORAL BEDTIME PRN for Itching, ( Reported) Hydrocodone Bit/Acetaminophen 5-325* ([place] 5-325*), 1 TAB ORAL Q6H PRN for For Pain Miscellaneous Medications Acyclovir (Zovirax), 1 APPLIC TOPIC, (Reported) Discontinued Medications Emtricitabine/Tenofovir (Truvada 200 mg-300 mg Tablet), DAILY, (Reported) Discontinued Reason: Pt stopped taking med Raltegravir (Isentress), 400 MG ORAL BID, (Reported) Discontinued Reason: Pt stopped taking med Patient History Healthcare decision maker Resuscitation status Full Code Advanced Directive on File Review of Systems Psychiatric: Reports: prior hx, anxiety, depressed feelings, emotional problems Physical Exam General Appearance: no apparent distress, alert Neurologic: oriented x 3, responsive, depressed affect Last 24 Hour Vital Signs Date Time Temp Pulse Resp B/P (MAP) Pulse Ox O2 Delivery O2 Flow Rate FiO2 08/31/18 12:00 97.9 68 18 137/86 (103) 96 08/31/18 11:17 97.5 08/31/18 09:00 77 16 Room Air 21 08/31/18 09:00 Room Air 08/31/18 09:00 77 16 95 Room Air 21 08/31/18 09:00 Room Air 08/31/18 08:00 97.5 75 18 142/85 (104) 96 08/31/18 04:00 97.4 73 20 147/70 (95) 95 08/31/18 00:00 98.1 20 149/82 (104) 95 08/30/18 23:15 Room Air 08/30/18 22:45 98.1 68 18 137/70 95 Room Air 08/30/18 20:20 97.5 82 18 139/82 95 Room Air 08/30/18 20:07 97.5 87 18 139/82 95 Room Air Intake and Output 08/30/18 08/31/18 19:00 07:00 Intake Total 0 ml Balance 0 ml Intake Oral 0 ml # Voids 1 Laboratory Tests Test 08/30/18 21:06 08/30/18 21:30 08/31/18 05:45 Urine Color Pale yellow Urine Appearance Clear Urine pH 5 (4.5-8.0) Urine Specific [place] 1.025 (1.005-1.035) Urine Protein 1+ (NEGATIVE) H Urine Glucose (UA) 1+ (NEGATIVE) H Urine Ketones Negative (NEGATIVE) Urine Blood 1+ (NEGATIVE) H Urine Nitrite Negative (NEGATIVE) Urine Bilirubin Negative (NEGATIVE) Urine Urobilinogen Normal MG/DL (0.0-1.0) Urine Leukocyte Esterase Negative (NEGATIVE) Urine RBC 2-4 /HPF (0 - 0) H Urine WBC 0-2 /HPF (0 - 0) Urine Squamous Epithelial Cells None /LPF (NONE/OCC) Urine Bacteria Few /HPF (NONE) White Blood Count 4.1 K/UL (4.8-10.8) L 2.9 K/UL (4.8-10.8) L Red Blood Count 4.24 M/UL (4.70-6.10) L 3.93 M/UL (4.70-6.10) L Hemoglobin 13.4 G/DL (14.2-18.0) L 12.6 G/DL (14.2-18.0) L Hematocrit 37.9 % (42.0-52.0) L 35.8 % (42.0-52.0) L Mean Corpuscular Volume 89 FL (80-99) 91 FL (80-99) Mean Corpuscular Hemoglobin 31.6 PG (27.0-31.0) H 32.1 PG (27.0-31.0) H Mean Corpuscular Hemoglobin Concent 35.3 G/DL (32.0-36.0) 35.2 G/DL (32.0-36.0) Red Cell Distribution Width 10.8 % (11.6-14.8) L 11.1 % (11.6-14.8) L Platelet Count 142 K/UL (150-450) L 108 K/UL (150-450) L Mean Platelet Volume 7.4 FL (6.5-10.1) 8.2 FL (6.5-10.1) Neutrophils (%) (Auto) 46.5 % (45.0-75.0) % (45.0-75.0) Lymphocytes (%) (Auto) 41.6 % (20.0-45.0) % (20.0-45.0) Monocytes (%) (Auto) 8.7 % (1.0-10.0) % (1.0-10.0) Eosinophils (%) (Auto) 2.0 % (0.0-3.0) % (0.0-3.0) Basophils (%) (Auto) 1.2 % (0.0-2.0) % (0.0-2.0) Sodium Level 138 MMOL/L (136-145) 138 MMOL/L (136-145) Potassium Level 3.8 MMOL/L (3.5-5.1) 3.9 MMOL/L (3.5-5.1) Chloride Level 101 MMOL/L (98-107) 102 MMOL/L (98-107) Carbon Dioxide Level 30 MMOL/L (21-32) 26 MMOL/L (21-32) Anion Gap 8 mmol/L (5-15) 10 mmol/L (5-15) Blood Urea Nitrogen 19 mg/dL (7-18) H 19 mg/dL (7-18) H Creatinine 1.4 MG/DL (0.55-1.30) H 1.2 MG/DL (0.55-1.30) Estimat Glomerular Filtration Rate 50.9 mL/min (>60) > 60 mL/min (>60) Glucose Level 227 MG/DL (74-106) H 218 MG/DL (74-106) H Lactic Acid Level 2.20 mmol/L (0.4-2.0) H Calcium Level 8.7 MG/DL (8.5-10.1) 8.4 MG/DL (8.5-10.1) L Total Bilirubin 0.3 MG/DL (0.2-1.0) Aspartate Amino Transf (AST/SGOT) 26 U/L (15-37) Alanine Aminotransferase (ALT/SGPT) 53 U/L (12-78) Alkaline Phosphatase 92 U/L (46-116) Total Protein 8.0 G/DL (6.4-8.2) Albumin 3.9 G/DL (3.4-5.0) Globulin 4.1 g/dL Albumin/Globulin Ratio 1.0 (1.0-2.7) Differential Total Cells Counted 100 Neutrophils % (Manual) 42 % (45-75) L Lymphocytes % (Manual) 47 % (20-45) H Monocytes % (Manual) 8 % (1-10) Eosinophils % (Manual) 2 % (0-3) Basophils % (Manual) 1 % (0-2) Band Neutrophils 0 % (0-8) Platelet Estimate Decreased L Platelet Morphology Normal Red Blood Cell Morphology Normal Magnesium Level 1.7 MG/DL (1.8-2.4) L Microbiology Date/Time Source Procedure Growth Status 08/30/18 21:45 Wound Gram Stain - Final Resulted 08/30/18 21:45 Wound Wound Culture Pending Resulted Height (Feet): 5 Height (Inches): 7.00 Weight (Pounds): 230 Medications Current Medications Medications (Trade) Dose Ordered Sig/Jose Cruz Route PRN Reason Start Time Stop Time Status Last Admin Dose Admin Acetaminophen (Tylenol) 650 mg Q4H PRN ORAL Mild Pain (Pain Scale 1-3) 08/30/18 22:30 09/29/18 22:29 Acetaminophen (Tylenol) 650 mg Q4H PRN ORAL fever 08/30/18 22:30 09/29/18 22:29 Acetaminophen/ Hydrocodone Bitart ([place] 5/325) 1 tab Q6H PRN ORAL For Pain 08/30/18 22:30 09/06/18 22:29 08/31/18 10:47 Acetaminophen/ Hydrocodone Bitart ([place] 7.5/325) 1 tab Q4H PRN ORAL severe pain 08/30/18 22:30 09/06/18 22:29 08/31/18 06:01 Albuterol/ Ipratropium (Albuterol/ Ipratropium) 3 ml Q4H PRN HHN Shortness of Breath 08/30/18 22:45 09/04/18 22:44 Bisacodyl (Dulcolax) 10 mg HSPRN PRN RECTAL Constipation 08/30/18 22:30 09/29/18 22:29 Dextrose (Dextrose 50%) 25 ml Q30M PRN IV Hypoglycemia 08/30/18 22:30 09/29/18 22:29 Dextrose (Dextrose 50%) 50 ml Q30M PRN IV Hypoglycemia 08/30/18 22:30 09/29/18 22:29 Docusate Sodium (Colace) 100 mg EVERY 12 HOURS ORAL 08/30/18 22:45 09/29/18 22:44 Finasteride (Proscar) 5 mg DAILY ORAL 08/31/18 09:00 09/30/18 08:59 08/31/18 09:34 Gabapentin (Neurontin) 300 mg TID ORAL 08/31/18 09:00 09/30/18 08:59 08/31/18 12:40 Heparin Sodium (Porcine) (Heparin 5000 units/ml) 5,000 units EVERY 12 HOURS SUBQ 08/31/18 09:00 09/30/18 08:59 08/31/18 09:40 Insulin Aspart (NovoLOG) BEFORE MEALS AND HS SUBQ 08/31/18 06:30 09/30/18 06:29 08/31/18 12:05 Levothyroxine Sodium (Synthroid) 50 mcg DAILY@0630 ORAL 08/31/18 06:30 09/30/18 06:29 08/31/18 06:01 Montelukast Sodium (Singulair) 10 mg DAILY ORAL 08/31/18 09:00 09/30/18 08:59 08/31/18 09:34 Nebivolol (Bystolic) 10 mg BID ORAL 08/31/18 09:00 09/30/18 08:59 08/31/18 09:43 Ondansetron HCl (Zofran) 4 mg Q6H PRN IVP Nausea & Vomiting 08/30/18 22:30 09/29/18 22:29 Paroxetine HCl (Paxil) 20 mg DAILY ORAL 08/31/18 09:00 09/30/18 08:59 08/31/18 09:35 Patient Own Medication (Patient's Own Med) 1 ea BID ORAL 08/31/18 09:00 09/30/18 08:59 08/31/18 09:35 Patient Own Medication (Patient's Own Med) 1 ea DAILY ORAL 08/31/18 09:00 09/30/18 08:59 08/31/18 09:35 Patient Own Medication (Patient's Own Med) 1 ea DAILY ORAL 08/31/18 09:00 09/30/18 08:59 08/31/18 09:35 Polyethylene Glycol (Miralax) 17 gm HSPRN PRN ORAL Constipation 08/30/18 22:30 09/29/18 22:29 Tiotropium [place] (Spiriva Inhaler) 1 puff DAILY INH 08/31/18 09:00 09/30/18 08:59 Vancomycin HCl (Vanco rx to dose) 1 ea DAILY PRN MISC Per rx protocol 08/30/18 22:30 09/29/18 22:29 Vancomycin HCl/ Dextrose 250 ml @ 125 mls/hr Q24H IVPB 08/31/18 22:00 09/05/18 21:59 Assessment/Plan Status: stable Assessment/Plan MDD Anxiety d/o - change paxil 20mg qhs - ativan prn - provided dick/Miah Bhandari MD Aug 31, 2018 13:29
[2018-08-31] MEDS ORDERED: LORazepam 1mg tab ORAL PRN (13:30)
--- NOTE | 2018-08-31 16:20 | Consultation ---
History of Present Illness General Date patient seen: Aug 31, 2018 Chief Complaint: Skin Rash/Abscess Reason for Consultation: lower extremity pain and wound Present Illness HPI This is a pleasant 67 year old male with history of HIV, DM uncontrolled, HTN , etc who presents with complaints of pain of his right lower extremity which has been worsening. states he has had an ulcer of the right leg for 1 month and has been getting worse. States pain is 8/10, throbbing in nature, nonradiating. Denies any fevers/chills, no nausea/vomiting. States he is compliant with his medications at home. On admission noted to have abnormal wound / ulcer on right leg. surgery called to evaluate. patient seen, chart reviewed, patient examined. Allergies: Coded Allergies: ABACAVIR (Verified Allergy, Unknown, 01/29/09) DIDANOSINE (Verified Allergy, Unknown, 01/29/09) EFAVIRENZ (Verified Allergy, Unknown, 01/29/09) FOSAMPRENAVIR (Verified Allergy, Unknown, 01/29/09) INDINAVIR (Verified Allergy, Unknown, 08/30/18) SULFAMETHOXAZOLE (Verified Allergy, Unknown, 01/29/09) TRIMETHOPRIM (Verified Allergy, Unknown, 01/29/09) HYDROMORPHONE (Verified Adverse Reaction, Unknown, VOMITS, 06/12/12) Medication History Scheduled Acyclovir (Zovirax), 1 APPLIC TOPIC PRN, (Reported) Albuterol Sulfate* (Proair Hfa*), 2 PUFFS INH Q6H, (Reported) Aspirin (Aspirin), 81 MG PO DAILY, (Reported) Bysto (Bystolic), 10 MG PO BID, (Reported) Cimetidine (Cimetidine), 1,600 MG ORAL BEDTIME, (Reported) Clindamycin Hcl (Clindamycin Hcl), 300 MG ORAL FOUR TIMES A DAY Desvenlafaxine Succinate (Pristiq Er), 50 MG PO DAILY, (Reported) Dolutegravir Sodium (Tivicay), 50 MG ORAL DAILY, (Reported) Econazole Nitrate (Econazole Nitrate), 30 GM TP PRN, (Reported) Etravirine (Intelence), PO BID, (Reported) Fenofibrate,Micronized (Fenofibrate), DAILY, (Reported) Finasteride (Finasteride), DAILY, (Reported) Furosemide* (Lasix*), 20 MG ORAL DAILY, (Reported) Gabapentin* (Gabapentin*), 300 MG PO TID, (Reported) Hydrocodone/Acetaminophen 7.5-325* (Hydrocodon-Acetaminoph 7.5-325*), 1 EACH PO q6h prn, (Reported) Insulin Detemir (Levemir), 30 UNITS SQ DAILY, (Reported) Levothyroxine Sodium (Synthroid), 50 MCG ORAL DAILY, (Reported) Levothyroxine Sodium* (Levothyroxine Sodium*), ACBREAKFAST, (Reported) Lorazepam* (Lorazepam*), 1 MG PO q8h prn, (Reported) Maraviroc* ([place]*), 600 MG ORAL EVERY 12 HOURS, (Reported) Metformin Hcl* (Glucophage*), 1,000 MG ORAL TWICE A DAY, (Reported) Montelukast Sodium* (Montelukast Sodium*), DAILY, (Reported) Niacin (Niacin), 500 MG PO DAILY, (Reported) Olmesartan Medoxomil (Benicar), 20 MG ORAL DAILY, (Reported) Paroxetine Hcl* (Paxil*), 20 MG PO DAILY, (Reported) Pitavastatin Calcium (Livalo), 4 MG PO HS, (Reported) Ranitidine Hcl* (Zantac*), 150 MG ORAL DAILY, (Reported) Rivaroxaban (Xarelto*), 10 MG PO DAILY, (Reported) Sucralfate* (Carafate*), 1 GM ORAL FIVE TIMES A DAY, (Reported) Tiotropium [place]* (Spiriva*), DAILY, (Reported) Valsartan (Diovan), 80 MG ORAL DAILY, (Reported) Scheduled PRN Diphenhydramine Hcl (Diphenhydramine Hcl), 50 MG ORAL BEDTIME PRN for Itching, ( Reported) Hydrocodone Bit/Acetaminophen 5-325* ([place] 5-325*), 1 TAB ORAL Q6H PRN for For Pain Miscellaneous Medications Acyclovir (Zovirax), 1 APPLIC TOPIC, (Reported) Discontinued Medications Emtricitabine/Tenofovir (Truvada 200 mg-300 mg Tablet), DAILY, (Reported) Discontinued Reason: Pt stopped taking med Raltegravir (Isentress), 400 MG ORAL BID, (Reported) Discontinued Reason: Pt stopped taking med Patient History History Provided By: Medical Record, PMD Healthcare decision maker Resuscitation status Full Code Advanced Directive on File Past Medical/Surgical History Past Medical/Surgical History: (1) Cardiomegaly (2) Depression (3) Status asthmaticus (4) Sinusitis (5) Bronchial asthma (6) Hypothyroidism (7) Sinusitis, acute (8) URI (upper respiratory infection) (9) Hypercholesteremia (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 (11) AIDS (12) Morbid obesity (13) exacerbation of asthmatic bronchitis (14) Chest pain (15) Abdominal pain (16) Asthmatic bronchitis with exacerbation (17) ACS (acute coronary syndrome) (18) HIV (human immunodeficiency virus infection) (19) COPD (chronic obstructive pulmonary disease) (20) Hypertension (21) Cellulitis of right leg (22) Ulcer of right leg (23) Diabetes Review of Systems All Other Systems: negative except mentioned in HPI Physical Exam General Appearance: no apparent distress, alert Lines, tubes and drains: peripheral HEENT: mucous membranes moist Neck: supple Respiratory/Chest: normal breath sounds, no respiratory distress, no accessory muscle use Cardiovascular/Chest: normal rate, regular rhythm Abdomen: soft, no organomegaly, no mass Extremities: other Skin Exam: warm/dry Neurologic: alert, responsive Last 24 Hour Vital Signs Date Time Temp Pulse Resp B/P (MAP) Pulse Ox O2 Delivery O2 Flow Rate FiO2 08/31/18 12:00 97.9 68 18 137/86 (103) 96 08/31/18 11:17 97.5 08/31/18 09:00 77 16 Room Air 21 08/31/18 09:00 Room Air 08/31/18 09:00 77 16 95 Room Air 21 08/31/18 09:00 Room Air 08/31/18 08:00 97.5 75 18 142/85 (104) 96 08/31/18 04:00 97.4 73 20 147/70 (95) 95 08/31/18 00:00 98.1 20 149/82 (104) 95 08/30/18 23:15 Room Air 08/30/18 22:45 98.1 68 18 137/70 95 Room Air 08/30/18 20:20 97.5 82 18 139/82 95 Room Air 08/30/18 20:07 97.5 87 18 139/82 95 Room Air Intake and Output 08/30/18 08/31/18 19:00 07:00 Intake Total 0 ml Balance 0 ml Intake Oral 0 ml # Voids 1 Laboratory Tests Test 08/30/18 21:06 08/30/18 21:30 08/31/18 05:45 Urine Color Pale yellow Urine Appearance Clear Urine pH 5 (4.5-8.0) Urine Specific [place] 1.025 (1.005-1.035) Urine Protein 1+ (NEGATIVE) H Urine Glucose (UA) 1+ (NEGATIVE) H Urine Ketones Negative (NEGATIVE) Urine Blood 1+ (NEGATIVE) H Urine Nitrite Negative (NEGATIVE) Urine Bilirubin Negative (NEGATIVE) Urine Urobilinogen Normal MG/DL (0.0-1.0) Urine Leukocyte Esterase Negative (NEGATIVE) Urine RBC 2-4 /HPF (0 - 0) H Urine WBC 0-2 /HPF (0 - 0) Urine Squamous Epithelial Cells None /LPF (NONE/OCC) Urine Bacteria Few /HPF (NONE) White Blood Count 4.1 K/UL (4.8-10.8) L 2.9 K/UL (4.8-10.8) L Red Blood Count 4.24 M/UL (4.70-6.10) L 3.93 M/UL (4.70-6.10) L Hemoglobin 13.4 G/DL (14.2-18.0) L 12.6 G/DL (14.2-18.0) L Hematocrit 37.9 % (42.0-52.0) L 35.8 % (42.0-52.0) L Mean Corpuscular Volume 89 FL (80-99) 91 FL (80-99) Mean Corpuscular Hemoglobin 31.6 PG (27.0-31.0) H 32.1 PG (27.0-31.0) H Mean Corpuscular Hemoglobin Concent 35.3 G/DL (32.0-36.0) 35.2 G/DL (32.0-36.0) Red Cell Distribution Width 10.8 % (11.6-14.8) L 11.1 % (11.6-14.8) L Platelet Count 142 K/UL (150-450) L 108 K/UL (150-450) L Mean Platelet Volume 7.4 FL (6.5-10.1) 8.2 FL (6.5-10.1) Neutrophils (%) (Auto) 46.5 % (45.0-75.0) % (45.0-75.0) Lymphocytes (%) (Auto) 41.6 % (20.0-45.0) % (20.0-45.0) Monocytes (%) (Auto) 8.7 % (1.0-10.0) % (1.0-10.0) Eosinophils (%) (Auto) 2.0 % (0.0-3.0) % (0.0-3.0) Basophils (%) (Auto) 1.2 % (0.0-2.0) % (0.0-2.0) Sodium Level 138 MMOL/L (136-145) 138 MMOL/L (136-145) Potassium Level 3.8 MMOL/L (3.5-5.1) 3.9 MMOL/L (3.5-5.1) Chloride Level 101 MMOL/L (98-107) 102 MMOL/L (98-107) Carbon Dioxide Level 30 MMOL/L (21-32) 26 MMOL/L (21-32) Anion Gap 8 mmol/L (5-15) 10 mmol/L (5-15) Blood Urea Nitrogen 19 mg/dL (7-18) H 19 mg/dL (7-18) H Creatinine 1.4 MG/DL (0.55-1.30) H 1.2 MG/DL (0.55-1.30) Estimat Glomerular Filtration Rate 50.9 mL/min (>60) > 60 mL/min (>60) Glucose Level 227 MG/DL (74-106) H 218 MG/DL (74-106) H Lactic Acid Level 2.20 mmol/L (0.4-2.0) H Calcium Level 8.7 MG/DL (8.5-10.1) 8.4 MG/DL (8.5-10.1) L Total Bilirubin 0.3 MG/DL (0.2-1.0) Aspartate Amino Transf (AST/SGOT) 26 U/L (15-37) Alanine Aminotransferase (ALT/SGPT) 53 U/L (12-78) Alkaline Phosphatase 92 U/L (46-116) Total Protein 8.0 G/DL (6.4-8.2) Albumin 3.9 G/DL (3.4-5.0) Globulin 4.1 g/dL Albumin/Globulin Ratio 1.0 (1.0-2.7) Differential Total Cells Counted 100 Neutrophils % (Manual) 42 % (45-75) L Lymphocytes % (Manual) 47 % (20-45) H Monocytes % (Manual) 8 % (1-10) Eosinophils % (Manual) 2 % (0-3) Basophils % (Manual) 1 % (0-2) Band Neutrophils 0 % (0-8) Platelet Estimate Decreased L Platelet Morphology Normal Red Blood Cell Morphology Normal Magnesium Level 1.7 MG/DL (1.8-2.4) L Microbiology Date/Time Source Procedure Growth Status 08/30/18 21:45 Wound Gram Stain - Final Resulted 08/30/18 21:45 Wound Wound Culture Pending Resulted Height (Feet): 5 Height (Inches): 7.00 Weight (Pounds): 230 Medications Current Medications Medications (Trade) Dose Ordered Sig/Jose Cruz Route PRN Reason Start Time Stop Time Status Last Admin Dose Admin Acetaminophen (Tylenol) 650 mg Q4H PRN ORAL Mild Pain (Pain Scale 1-3) 08/30/18 22:30 09/29/18 22:29 Acetaminophen (Tylenol) 650 mg Q4H PRN ORAL fever 08/30/18 22:30 09/29/18 22:29 Acetaminophen/ Hydrocodone Bitart ([place] 5/325) 1 tab Q6H PRN ORAL For Pain 08/30/18 22:30 09/06/18 22:29 08/31/18 10:47 Acetaminophen/ Hydrocodone Bitart ([place] 7.5/325) 1 tab Q4H PRN ORAL severe pain 08/30/18 22:30 09/06/18 22:29 08/31/18 06:01 Albuterol/ Ipratropium (Albuterol/ Ipratropium) 3 ml Q4H PRN HHN Shortness of Breath 08/30/18 22:45 09/04/18 22:44 Bisacodyl (Dulcolax) 10 mg HSPRN PRN RECTAL Constipation 08/30/18 22:30 09/29/18 22:29 Dextrose (Dextrose 50%) 25 ml Q30M PRN IV Hypoglycemia 08/30/18 22:30 09/29/18 22:29 Dextrose (Dextrose 50%) 50 ml Q30M PRN IV Hypoglycemia 08/30/18 22:30 09/29/18 22:29 Docusate Sodium (Colace) 100 mg EVERY 12 HOURS ORAL 08/30/18 22:45 09/29/18 22:44 Finasteride (Proscar) 5 mg DAILY ORAL 08/31/18 09:00 09/30/18 08:59 08/31/18 09:34 Gabapentin (Neurontin) 300 mg TID ORAL 08/31/18 09:00 09/30/18 08:59 08/31/18 12:40 Heparin Sodium (Porcine) (Heparin 5000 units/ml) 5,000 units EVERY 12 HOURS SUBQ 08/31/18 09:00 09/30/18 08:59 08/31/18 09:40 Insulin Aspart (NovoLOG) BEFORE MEALS AND HS SUBQ 08/31/18 06:30 09/30/18 06:29 08/31/18 12:05 Levothyroxine Sodium (Synthroid) 50 mcg DAILY@0630 ORAL 08/31/18 06:30 09/30/18 06:29 08/31/18 06:01 Lorazepam (Ativan) 1 mg Q6H PRN ORAL For Anxiety 08/31/18 13:30 09/07/18 13:29 Montelukast Sodium (Singulair) 10 mg DAILY ORAL 08/31/18 09:00 09/30/18 08:59 08/31/18 09:34 Nebivolol (Bystolic) 10 mg BID ORAL 08/31/18 09:00 09/30/18 08:59 08/31/18 09:43 Ondansetron HCl (Zofran) 4 mg Q6H PRN IVP Nausea & Vomiting 08/30/18 22:30 09/29/18 22:29 Paroxetine HCl (Paxil) 20 mg BEDTIME ORAL 09/01/18 21:00 10/01/18 20:59 Patient Own Medication (Patient's Own Med) 1 ea BID ORAL 08/31/18 09:00 09/30/18 08:59 08/31/18 09:35 Patient Own Medication (Patient's Own Med) 1 ea DAILY ORAL 08/31/18 09:00 09/30/18 08:59 08/31/18 09:35 Patient Own Medication (Patient's Own Med) 1 ea DAILY ORAL 08/31/18 09:00 09/30/18 08:59 08/31/18 09:35 Polyethylene Glycol (Miralax) 17 gm HSPRN PRN ORAL Constipation 08/30/18 22:30 09/29/18 22:29 Tiotropium [place] (Spiriva Inhaler) 1 puff DAILY INH 08/31/18 09:00 09/30/18 08:59 Vancomycin HCl (Vanco rx to dose) 1 ea DAILY PRN MISC Per rx protocol 08/30/18 22:30 09/29/18 22:29 Vancomycin HCl/ Dextrose 250 ml @ 125 mls/hr Q24H IVPB 08/31/18 22:00 09/05/18 21:59 Assessment/Plan Problem List: (1) Cellulitis of right leg Assessment & Plan: Patient presents with full thickness wound distal, lateral R lower extremity which is (L)1cm x(W)x (D)0.3cm Wound has punched like appearance Wound bed moist with 100% slough, marginal erythema Small amt non-odorous exudate noted. Hemosiderin noted to both lower ext. Seems like chronic venous stasis ulcer. no significant varicose veins noted but has had laser venous ablation in the past Tx.Plan: Wash wound with NS, apply therahoney or hydrogel, okay to use alginate, apply skin protectant, apply foam dressing daily and prn Keep lower extremity elevated Heel protectors standard wound care and decubitus ulcer protocol venous and arterial US studies thank you. will follow with recs ICD Codes: L03.115 - Cellulitis of right lower limb SNOMED: [id number] Status: stable Nikhil Jones Aug 31, 2018 16:20
--- NOTE | 2018-08-31 18:38 | Infectious Diseases Prog Note ---
Assessment/Plan Assessment/Plan Full consult dictated: A) 1) right leg cellulitis and possible infected wound and ulcer, non-healing x 1 month, ? osteomyelitis 2) HIV - on anti-retrovirals 3) DM, HTN, anxiety, depression, asthma 4) allergies - multiple, noted 5) sh-negative, fh-nc, mar noted, notes and records noted 6) d/w RN P) 1) vancomycin and cefepime 2) check labs, wound culture, right leg x-ray, sed rate 3) surgery f/u on wound care 4) continue treatment per primary team 5) orders noted and entered 6) thank you Subjective Allergies: Coded Allergies: ABACAVIR (Verified Allergy, Unknown, 01/29/09) DIDANOSINE (Verified Allergy, Unknown, 01/29/09) EFAVIRENZ (Verified Allergy, Unknown, 01/29/09) FOSAMPRENAVIR (Verified Allergy, Unknown, 01/29/09) INDINAVIR (Verified Allergy, Unknown, 08/30/18) SULFAMETHOXAZOLE (Verified Allergy, Unknown, 01/29/09) TRIMETHOPRIM (Verified Allergy, Unknown, 01/29/09) HYDROMORPHONE (Verified Adverse Reaction, Unknown, VOMITS, 06/12/12) Objective Vital Signs Last 24 Hour Vital Signs Date Time Temp Pulse Resp B/P (MAP) Pulse Ox O2 Delivery O2 Flow Rate FiO2 08/31/18 17:05 97.9 08/31/18 16:00 97.2 71 18 145/88 (107) 97 08/31/18 12:00 97.9 68 18 137/86 (103) 96 08/31/18 11:17 97.5 08/31/18 09:00 77 16 Room Air 21 08/31/18 09:00 Room Air 08/31/18 09:00 77 16 95 Room Air 21 08/31/18 09:00 Room Air 08/31/18 08:00 97.5 75 18 142/85 (104) 96 08/31/18 04:00 97.4 73 20 147/70 (95) 95 08/31/18 00:00 98.1 20 149/82 (104) 95 08/30/18 23:15 Room Air 08/30/18 22:45 98.1 68 18 137/70 95 Room Air 08/30/18 20:20 97.5 82 18 139/82 95 Room Air 08/30/18 20:07 97.5 87 18 139/82 95 Room Air Height (Feet): 5 Height (Inches): 7.00 Weight (Pounds): 230 Microbiology Date/Time Source Procedure Growth Status 08/30/18 21:45 Wound Gram Stain - Final Resulted 08/30/18 21:45 Wound Wound Culture Pending Resulted Laboratory Tests Test 08/30/18 21:06 08/30/18 21:30 08/31/18 05:45 Urine Color Pale yellow Urine Appearance Clear Urine pH 5 (4.5-8.0) Urine Specific [place] 1.025 (1.005-1.035) Urine Protein 1+ (NEGATIVE) H Urine Glucose (UA) 1+ (NEGATIVE) H Urine Ketones Negative (NEGATIVE) Urine Blood 1+ (NEGATIVE) H Urine Nitrite Negative (NEGATIVE) Urine Bilirubin Negative (NEGATIVE) Urine Urobilinogen Normal MG/DL (0.0-1.0) Urine Leukocyte Esterase Negative (NEGATIVE) Urine RBC 2-4 /HPF (0 - 0) H Urine WBC 0-2 /HPF (0 - 0) Urine Squamous Epithelial Cells None /LPF (NONE/OCC) Urine Bacteria Few /HPF (NONE) White Blood Count 4.1 K/UL (4.8-10.8) L 2.9 K/UL (4.8-10.8) L Red Blood Count 4.24 M/UL (4.70-6.10) L 3.93 M/UL (4.70-6.10) L Hemoglobin 13.4 G/DL (14.2-18.0) L 12.6 G/DL (14.2-18.0) L Hematocrit 37.9 % (42.0-52.0) L 35.8 % (42.0-52.0) L Mean Corpuscular Volume 89 FL (80-99) 91 FL (80-99) Mean Corpuscular Hemoglobin 31.6 PG (27.0-31.0) H 32.1 PG (27.0-31.0) H Mean Corpuscular Hemoglobin Concent 35.3 G/DL (32.0-36.0) 35.2 G/DL (32.0-36.0) Red Cell Distribution Width 10.8 % (11.6-14.8) L 11.1 % (11.6-14.8) L Platelet Count 142 K/UL (150-450) L 108 K/UL (150-450) L Mean Platelet Volume 7.4 FL (6.5-10.1) 8.2 FL (6.5-10.1) Neutrophils (%) (Auto) 46.5 % (45.0-75.0) % (45.0-75.0) Lymphocytes (%) (Auto) 41.6 % (20.0-45.0) % (20.0-45.0) Monocytes (%) (Auto) 8.7 % (1.0-10.0) % (1.0-10.0) Eosinophils (%) (Auto) 2.0 % (0.0-3.0) % (0.0-3.0) Basophils (%) (Auto) 1.2 % (0.0-2.0) % (0.0-2.0) Sodium Level 138 MMOL/L (136-145) 138 MMOL/L (136-145) Potassium Level 3.8 MMOL/L (3.5-5.1) 3.9 MMOL/L (3.5-5.1) Chloride Level 101 MMOL/L (98-107) 102 MMOL/L (98-107) Carbon Dioxide Level 30 MMOL/L (21-32) 26 MMOL/L (21-32) Anion Gap 8 mmol/L (5-15) 10 mmol/L (5-15) Blood Urea Nitrogen 19 mg/dL (7-18) H 19 mg/dL (7-18) H Creatinine 1.4 MG/DL (0.55-1.30) H 1.2 MG/DL (0.55-1.30) Estimat Glomerular Filtration Rate 50.9 mL/min (>60) > 60 mL/min (>60) Glucose Level 227 MG/DL (74-106) H 218 MG/DL (74-106) H Lactic Acid Level 2.20 mmol/L (0.4-2.0) H Calcium Level 8.7 MG/DL (8.5-10.1) 8.4 MG/DL (8.5-10.1) L Total Bilirubin 0.3 MG/DL (0.2-1.0) Aspartate Amino Transf (AST/SGOT) 26 U/L (15-37) Alanine Aminotransferase (ALT/SGPT) 53 U/L (12-78) Alkaline Phosphatase 92 U/L (46-116) Total Protein 8.0 G/DL (6.4-8.2) Albumin 3.9 G/DL (3.4-5.0) Globulin 4.1 g/dL Albumin/Globulin Ratio 1.0 (1.0-2.7) Differential Total Cells Counted 100 Neutrophils % (Manual) 42 % (45-75) L Lymphocytes % (Manual) 47 % (20-45) H Monocytes % (Manual) 8 % (1-10) Eosinophils % (Manual) 2 % (0-3) Basophils % (Manual) 1 % (0-2) Band Neutrophils 0 % (0-8) Platelet Estimate Decreased L Platelet Morphology Normal Red Blood Cell Morphology Normal Magnesium Level 1.7 MG/DL (1.8-2.4) L Current Medications Medications (Trade) Dose Ordered Sig/Jose Cruz Route PRN Reason Start Time Stop Time Status Last Admin Dose Admin Acetaminophen (Tylenol) 650 mg Q4H PRN ORAL Mild Pain (Pain Scale 1-3) 08/30/18 22:30 09/29/18 22:29 Acetaminophen (Tylenol) 650 mg Q4H PRN ORAL fever 08/30/18 22:30 09/29/18 22:29 Acetaminophen/ Hydrocodone Bitart ([place] 5/325) 1 tab Q6H PRN ORAL For Pain 08/30/18 22:30 09/06/18 22:29 08/31/18 10:47 Acetaminophen/ Hydrocodone Bitart ([place] 7.5/325) 1 tab Q4H PRN ORAL severe pain 08/30/18 22:30 09/06/18 22:29 08/31/18 16:35 Albuterol/ Ipratropium (Albuterol/ Ipratropium) 3 ml Q4H PRN HHN Shortness of Breath 08/30/18 22:45 09/04/18 22:44 Bisacodyl (Dulcolax) 10 mg HSPRN PRN RECTAL Constipation 08/30/18 22:30 09/29/18 22:29 Cefepime HCl 1 gm/ Dextrose 50 ml @ 100 mls/hr Q12HR IVPB 08/31/18 20:00 09/07/18 19:59 Dextrose (Dextrose 50%) 25 ml Q30M PRN IV Hypoglycemia 08/30/18 22:30 09/29/18 22:29 Dextrose (Dextrose 50%) 50 ml Q30M PRN IV Hypoglycemia 08/30/18 22:30 09/29/18 22:29 Docusate Sodium (Colace) 100 mg EVERY 12 HOURS ORAL 08/30/18 22:45 09/29/18 22:44 Finasteride (Proscar) 5 mg DAILY ORAL 08/31/18 09:00 09/30/18 08:59 08/31/18 09:34 Gabapentin (Neurontin) 300 mg TID ORAL 08/31/18 09:00 09/30/18 08:59 08/31/18 17:37 Heparin Sodium (Porcine) (Heparin 5000 units/ml) 5,000 units EVERY 12 HOURS SUBQ 08/31/18 09:00 09/30/18 08:59 08/31/18 09:40 Insulin Aspart (NovoLOG) BEFORE MEALS AND HS SUBQ 08/31/18 06:30 09/30/18 06:29 08/31/18 16:37 Levothyroxine Sodium (Synthroid) 50 mcg DAILY@0630 ORAL 08/31/18 06:30 09/30/18 06:29 08/31/18 06:01 Lorazepam (Ativan) 1 mg Q6H PRN ORAL For Anxiety 08/31/18 13:30 09/07/18 13:29 Montelukast Sodium (Singulair) 10 mg DAILY ORAL 08/31/18 09:00 09/30/18 08:59 08/31/18 09:34 Nebivolol (Bystolic) 10 mg BID ORAL 08/31/18 09:00 09/30/18 08:59 08/31/18 17:37 Ondansetron HCl (Zofran) 4 mg Q6H PRN IVP Nausea & Vomiting 08/30/18 22:30 09/29/18 22:29 Paroxetine HCl (Paxil) 20 mg BEDTIME ORAL 09/01/18 21:00 10/01/18 20:59 Patient Own Medication (Patient's Own Med) 1 ea BID ORAL 08/31/18 09:00 09/30/18 08:59 08/31/18 17:37 Patient Own Medication (Patient's Own Med) 1 ea DAILY ORAL 08/31/18 09:00 09/30/18 08:59 08/31/18 09:35 Patient Own Medication (Patient's Own Med) 1 ea DAILY ORAL 08/31/18 09:00 09/30/18 08:59 08/31/18 09:35 Polyethylene Glycol (Miralax) 17 gm HSPRN PRN ORAL Constipation 08/30/18 22:30 09/29/18 22:29 Tiotropium [place] (Spiriva Inhaler) 1 puff DAILY INH 08/31/18 09:00 09/30/18 08:59 Vancomycin HCl (Vanco rx to dose) 1 ea DAILY PRN MISC Per rx protocol 08/30/18 22:30 09/29/18 22:29 Vancomycin HCl/ Dextrose 250 ml @ 125 mls/hr Q24H IVPB 08/31/18 22:00 09/05/18 21:59 Jairo Chavez MD Aug 31, 2018 18:38
[2018-08-31] MEDS: Vancomycin 1500mg IVPB SCH (21:52)
--- NOTE | 2018-08-31 22:30 | Consultation ---
DATE OF CONSULTATION: 08/31/2018 CONSULTING PHYSICIAN: Jairo Chavez M.D. ATTENDING PHYSICIAN: Reese Resendez M.D. REFERRING PHYSICIAN: Reese Resendez M.D. REASON FOR CONSULTATION: Right leg cellulitis with possible infected ulcer and wound, rule out osteo. CHIEF COMPLAINT: The patient's chief complaint coming into the hospital is right leg cellulitis. HISTORY OF PRESENT ILLNESS: This is a very pleasant 67-year-old male, who has a history of HIV. I am not sure of the T-cell count of the patient is. The patient is on antiretroviral therapy. The patient presents over the past month of a nonhealing right leg wound and ulcer. The patient now has redness and warmth and has cellulitis. The wound and ulcer again has been there for one month. The patient's right leg has significant pain 8/10. Infectious Disease consultation was requested for antibiotic management of this patient. The patient is truly on vanco matting cefepime for gram-negative coverage pending wound culture results. The patient also is being seen by Surgery for wound care. I believe there is no debridement at this time. I have ordered x-rays to rule out underlying osteo and sed rate results have been ordered. Continue vanco and cefepime for now. MAR was noted. Orders were noted. Notes were reviewed. Case was discussed with the patient. See HPI. REVIEW OF SYSTEMS: CONSTITUTIONAL: The patient has generalized fatigue, but no focal weakness. He has no weight loss. No fever, chills, or night sweats. HEAD AND NECK: No head pain, neck pain, thrush, or dysphagia. CARDIAC: No chest pain or palpitations. GASTROINTESTINAL: No nausea, vomiting, or diarrhea. No abdominal pain. GENITOURINARY: No dysuria or frequency. PULMONARY: No productive cough or hemoptysis. SKIN: No rash or itching. EXTREMITIES: He has right leg pain, swelling, and redness. NEUROLOGIC: No seizures. No dysphagia or thrush. Rest of the review of systems is otherwise limited. PAST MEDICAL HISTORY: Includes the following, the patient has a past medical history of HIV. He is on antiretroviral therapy. T-cell count and viral load are unknown at this time. He has history of diabetes mellitus. He has history of hypertension, history of anxiety, depression, and I believe, he also has history of asthma. ALLERGIES: Include abacavir, didanosine, , fosamprenavir, hydromorphone, indinavir, trimethoprim and sulfamethoxazole, and Bactrim. FAMILY HISTORY: Noncontributory. Negative for diabetes. Negative for cancer or tuberculosis. SOCIAL HISTORY: Negative for smoking, alcohol, or drug abuse. MEDICATIONS: Upon reviewing the MAR, he is on following medications. He is on Paxil. He is on vancomycin matted cefepime. He is on Ativan. He is on heparin. He is on Bystolic. He is on Proscar and Neurontin. He is on montelukast. He is on Spiriva. He is on levothyroxine, insulin, docusate, albuterol, acetaminophen, bisacodyl, polyethylene glycol, and Zofran. Again, antibiotics vanco and cefepime. Outside medications were noted and reconciled. He is in the outpatient setting, acyclovir and aspirin. He is on dolutegravir or Tivicay and he is on Intelence. He is on Pristiq. He is also on levothyroxine. He is on , metformin, Paxil, ranitidine, Spiriva, and Diovan. He is on antiretrovirals here in the hospital. PHYSICAL EXAMINATION: VITAL SIGNS: Temperature is 97.2 degrees, pulse rate 71, respiratory rate 18, blood pressure 145/88, and saturation 97%. GENERAL: Alert and responsive, in no acute distress. HEAD AND NECK: Oral exam, no thrush. Eye exam, no icterus. Neck is supple. No JVD. Normocephalic. No discharge. HEART: Regular rate and rhythm. No gallops or murmur. ABDOMEN: Soft. Positive bowel sounds. Nontender. LUNGS: There are few bilateral rhonchi and wheeze, but mostly clear bilaterally. No rales. SKIN: No rash. MUSCULOSKELETAL: No effusion. EXTREMITIES: Legs, his right leg has redness and warmth below the knee and above the ankle consistent with cellulitis, warmth, redness, and significant pain on palpation. He also has a chronic wound that was reviewed. No pus draining from the wound. There is a wound and ulcer. PERIPHERAL VASCULAR: No gangrene. MUSCULOSKELETAL: No evidence of septic arthritis. No other rash. NEUROLOGICAL: Intact. LINE SITES: Without phlebitis. GENITOURINARY: No Rosenbaum. No CVA tenderness. NEUROLOGIC: He is alert and oriented x3. LABORATORY DATA: Laboratory as follows. White count 2.9, hemoglobin 12.6, and platelet count is 108,000. The patient's creatinine is 1.2. It was 1.4 on admission. Urinalysis was leukocyte esterase negative. MICROBIOLOGY: Wound culture, right leg is pending. IMAGING: I have ordered x-rays of the right leg, which are pending. ASSESSMENT AND PLAN: 1. The patient has a right leg cellulitis with warmth and redness over the possible infected wound and ulcer that is chronic and nonhealing over one month. Rule out underlying osteomyelitis. Continue vanco and cefepime for MRSA and gram-negative coverage for right leg cellulitis and possible infected wound and ulcer. Check x-ray. Check sed rate. The patient may need MRI imaging, especially if the sed rate is significantly elevated. Continue to monitor cellulitis, on vanco and cefepime with the right leg. Continue wound care protocol and surgery. 2. HIV. The patient is currently on antiretroviral therapy. The patient is being followed by Dr. Adams in the outpatient setting and will defer further management and as an outpatient for his HIV. 3. Diabetes mellitus. Continue blood sugar treatment primary for better wound healing. 4. Hypertension. Continue blood pressure treatment primary. 5. Hypothyroidism. Also, continue levothyroxine. 6. Anxiety. 7. Depression. 8. Asthma. 9. Psychiatry is following on the case. 10. Past medical is noted. 11. Allergies include multiple allergies include abacavir, didanosine, , fosamprenavir, hydromorphone, indinavir, and Bactrim. 12. Social history is negative. 13. Family history is noncontributory. 14. MAR was noted. 15. Case was discussed with primary consultants. 16. Orders were noted and entered. Thank you for this consultation. I will follow with you. Jairo Chavez M.D. DR: /KHUSHBU JOB#: [id number] CC:
[2018-09-01] VITALS: BP 147/86
[2018-09-01] MEDS: Morphine Sulfate 4mg/ml Inj (IV/IM USE ONLY) IVP PRN ×4 (00:39→19:54)
[2018-09-01 04:00] VITALS: BP 127/73
[2018-09-01] MEDS: NovoLOG Insulin Flexpen SUBQ SCH ×4 (05:54→20:23)
[2018-09-01 06:28] LABS: BASOPHILS % (AUTO) 1.2 % (0.0-2.0); EOSINOPHILS % (AUTO) 2.7 % (0.0-3.0); HEMATOCRIT 39.2 % (42.0-52.0); LYMPHOCYTES % (AUTO) 48.8 % (20.0-45.0); MEAN CORPUSCULAR VOLUME 91 FL (80-99); MONOCYTES % (AUTO) 9.9 % (1.0-10.0); NEUTROPHILS % (AUTO) 37.3 % (45.0-75.0); PLATELET COUNT 129 K/UL (150-450); RED BLOOD COUNT 4.32 M/UL (4.70-6.10); RED CELL DISTRIBUTION WIDTH 10.9 % (11.6-14.8); WHITE BLOOD COUNT 3.5 K/UL (4.8-10.8)
[2018-09-01 06:51] LABS: ALANINE AMINOTRANSFERASE 47 U/L (12-78); ALBUMIN 3.8 G/DL (3.4-5.0); ALBUMIN/GLOBULIN RATIO 0.9 (1.0-2.7); ALKALINE PHOSPHATASE 88 U/L (46-116); ANION GAP 9 mmol/L (5-15); ASPARTATE AMINO TRANSFERASE 28 U/L (15-37); BILIRUBIN,TOTAL 0.3 MG/DL (0.2-1.0); BLOOD UREA NITROGEN 18 mg/dL (7-18); CALCIUM 8.9 MG/DL (8.5-10.1); CARBON DIOXIDE 28 MMOL/L (21-32); CHLORIDE 101 MMOL/L (98-107); CREATININE 1.2 MG/DL (0.55-1.30); POTASSIUM 4.4 MMOL/L (3.5-5.1); SODIUM 138 MMOL/L (136-145)
[2018-09-01 08:00] VITALS: BP 129/68
--- NOTE | 2018-09-01 08:00 | General Progress Note ---
Assessment/Plan Problem List: (1) Ulcer of right leg Assessment & Plan: cont vancomycin vasc duplex reviewed, neg acute, no claudication completed pending art duplx and xr appreciate gen surg/wound care recs ID consulted, appreciate recs fluids cx sent ICD Codes: L97.919 - Non-pressure chronic ulcer of unspecified part of right lower leg with unspecified severity SNOMED: 11804838 (2) Cellulitis of right leg Assessment & Plan: cont abx as per #1 ICD Codes: L03.115 - Cellulitis of right lower limb SNOMED: 754693832 (3) HIV (human immunodeficiency virus infection) Assessment & Plan: resume home meds stable ICD Codes: Z21 - Asymptomatic human immunodeficiency virus [HIV] infection status SNOMED: 80651372 (4) COPD (chronic obstructive pulmonary disease) Assessment & Plan: stable no acute resp failure ICD Codes: J44.9 - Chronic obstructive pulmonary disease, unspecified SNOMED: 70782214 (5) Diabetes Assessment & Plan: iss accuchecks ICD Codes: E11.9 - Diabetes SNOMED: 67117697 Qualifiers: Qualified Codes: E11.51 - Type 2 diabetes mellitus with diabetic peripheral angiopathy without gangrene; 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 (6) Hypertension Assessment & Plan: stable resume home meds monitor vitals ICD Codes: I10 - Hypertension SNOMED: 75063693 Status: stable Assessment/Plan ppx: heparin diet: ccd5 I have spent spend over 49 minutes regarding patient care and counseling and over 33 minutes of face to face time with the patient Subjective Date patient seen: Sep 01, 2018 Time patient seen: 07:58 Allergies: Coded Allergies: ABACAVIR (Verified Allergy, Unknown, 01/29/09) DIDANOSINE (Verified Allergy, Unknown, 01/29/09) EFAVIRENZ (Verified Allergy, Unknown, 01/29/09) FOSAMPRENAVIR (Verified Allergy, Unknown, 01/29/09) INDINAVIR (Verified Allergy, Unknown, 08/30/18) SULFAMETHOXAZOLE (Verified Allergy, Unknown, 01/29/09) TRIMETHOPRIM (Verified Allergy, Unknown, 01/29/09) HYDROMORPHONE (Verified Adverse Reaction, Unknown, VOMITS, 06/12/12) Subjective f/u right LE ulcer/cellulitis, HIV, right leg pain feeling better, state pain is well controlled denies any fevers/chills no acute events overnight pending xr and art duplx. gen surg/wound care and ID follow up ROS: 12 point ros reviewed and negative except for the above Objective Last 24 Hour Vital Signs Date Time Temp Pulse Resp B/P (MAP) Pulse Ox O2 Delivery O2 Flow Rate FiO2 09/01/18 04:00 98.8 70 18 127/73 (91) 94 09/01/18 00:00 98.5 71 19 147/86 (106) 97 08/31/18 21:00 Room Air 08/31/18 20:00 98.5 68 19 138/75 (96) 97 08/31/18 19:46 72 18 Room Air 21 08/31/18 17:05 97.9 08/31/18 16:00 97.2 71 18 145/88 (107) 97 08/31/18 12:00 97.9 68 18 137/86 (103) 96 08/31/18 11:17 97.5 08/31/18 09:00 77 16 Room Air 21 08/31/18 09:00 Room Air 08/31/18 09:00 77 16 95 Room Air 21 08/31/18 09:00 Room Air 08/31/18 08:00 97.5 75 18 142/85 (104) 96 Intake and Output 08/31/18 09/01/18 18:59 06:59 Intake Total 2180 ml 900 ml Output Total 400 ml 2500 ml Balance 1780 ml -1600 ml Intake Oral 2180 ml 600 ml IV Total 300 ml Output Urine Total 400 ml 2500 ml # Voids 8 6 Laboratory Tests 09/01/18 05:35: White Blood Count 3.5L, Red Blood Count 4.32L, Hemoglobin 14.0L, Hematocrit 39.2L, Mean Corpuscular Volume 91, Mean Corpuscular Hemoglobin 32.3H, Mean Corpuscular Hemoglobin Concent 35.7, Red Cell Distribution Width 10.9L, Platelet Count 129L, Mean Platelet Volume 8.7, Neutrophils (%) (Auto) 37.3L, Lymphocytes (%) (Auto) 48.8H, Monocytes (%) (Auto) 9.9, Eosinophils (%) (Auto) 2.7, Basophils (%) (Auto) 1.2, Erythrocyte Sedimentation Rate [Pending], Sodium Level 138, Potassium Level 4.4, Chloride Level 101, Carbon Dioxide Level 28, Anion Gap 9, Blood Urea Nitrogen 18, Creatinine 1.2, Estimat Glomerular Filtration Rate > 60, Glucose Level 173H, Calcium Level 8.9, Total Bilirubin 0.3 , Aspartate Amino Transf (AST/SGOT) 28, Alanine Aminotransferase (ALT/SGPT) 47, Alkaline Phosphatase 88, C-Reactive Protein, Quantitative < 0.4, Total Protein 7.9, Albumin 3.8, Globulin 4.1, Albumin/Globulin Ratio 0.9L Height (Feet): 5 Height (Inches): 7.00 Weight (Pounds): 231 General Appearance: no apparent distress, alert EENT: PERRL/EOMI, normal ENT inspection, TMs normal Neck: non-tender, normal alignment, supple Cardiovascular: normal peripheral pulses, normal rate, regular rhythm Respiratory/Chest: chest wall non-tender, lungs clear, normal breath sounds, no respiratory distress Abdomen: normal bowel sounds, non tender, soft, no organomegaly, no mass Extremities: normal range of motion, non-tender, no calf tenderness Neurologic: shampoo assistant II-XII grossly normal, no motor/sensory deficits, alert, oriented x 3 Skin: warm/dry, other - right leg Jenae Clarke MD Sep 01, 2018 08:00
[2018-09-01] MEDS: Docusate 100mg cap ORAL SCH ×2 (08:31→20:37)
[2018-09-01] MEDS: Montelukast 10mg tablet ORAL SCH (08:31)
[2018-09-01] MEDS: Heparin 5000 units/ml inj SUBQ SCH ×2 (08:32→20:23)
[2018-09-01] MEDS: DESCOVY ORAL SCH (10:14)
[2018-09-01] MEDS: Patient's Own Med - Tivicay 50mg ORAL SCH (10:15)
--- NOTE | 2018-09-01 10:22 | Diagnostic Imaging Report ---
APPROVED REPORT CPT Code: 14154 Present Symptoms Comments: BILATERAL LEGS PAIN. BILATERAL: Imaging reveals a patent deep venous system bilaterally. There is no evidence of thrombus within the femoral, popliteal or tibial segments. The greater saphenous veins are also within normal limits. Doppler indicates normal spontaneous flow within these segments.
--- NOTE | 2018-09-01 10:22 | Diagnostic Imaging Report ---
APPROVED REPORT CPT Code: 95152 Comments BILATERAL LEGS PAIN. BILATERAL: Common femoral artery waveform analysis is within normal limits at rest. Color flow duplex sonography reveals minimal calcification throughout the superficial femoral, and popliteal arteries. There is no evidence of stenosis or occlusion within these segments.The posterior tibial, anterior tibial and dorsalis pedis arteries are also minimally calcified. However, Doppler tibial artery waveform analysis is within normal limits bilaterally.
[2018-09-01 12:00] VITALS: BP 117/68
--- NOTE | 2018-09-01 12:03 | General Surgery Progress Note ---
General Surgery-Progress Note Subjective Additional Comments no acute events. still with pain in right leg ulcer. no n/v/f/c. labs noted. Objective Last 24 Hour Vital Signs Date Time Temp Pulse Resp B/P (MAP) Pulse Ox O2 Delivery O2 Flow Rate FiO2 09/01/18 10:13 Room Air 09/01/18 09:05 74 18 94 Room Air 09/01/18 09:04 74 18 94 Room Air 21 09/01/18 09:01 97.5 09/01/18 08:00 97.5 69 18 129/68 (88) 96 09/01/18 04:00 98.8 70 18 127/73 (91) 94 09/01/18 00:00 98.5 71 19 147/86 (106) 97 08/31/18 21:00 Room Air 08/31/18 20:00 98.5 68 19 138/75 (96) 97 08/31/18 19:46 72 18 Room Air 21 08/31/18 17:05 97.9 08/31/18 16:00 97.2 71 18 145/88 (107) 97 I&O Intake and Output 08/31/18 09/01/18 18:59 06:59 Intake Total 2180 ml 900 ml Output Total 400 ml 2500 ml Balance 1780 ml -1600 ml Intake Oral 2180 ml 600 ml IV Total 300 ml Output Urine Total 400 ml 2500 ml # Voids 8 6 Drains: none Cardiovascular: RSR Respiratory: clear Abdomen: soft, flat, non-tender, present bowel sounds Extremities: other Laboratory Tests Test 09/01/18 05:35 White Blood Count 3.5 K/UL (4.8-10.8) L Red Blood Count 4.32 M/UL (4.70-6.10) L Hemoglobin 14.0 G/DL (14.2-18.0) L Hematocrit 39.2 % (42.0-52.0) L Mean Corpuscular Volume 91 FL (80-99) Mean Corpuscular Hemoglobin 32.3 PG (27.0-31.0) H Mean Corpuscular Hemoglobin Concent 35.7 G/DL (32.0-36.0) Red Cell Distribution Width 10.9 % (11.6-14.8) L Platelet Count 129 K/UL (150-450) L Mean Platelet Volume 8.7 FL (6.5-10.1) Neutrophils (%) (Auto) 37.3 % (45.0-75.0) L Lymphocytes (%) (Auto) 48.8 % (20.0-45.0) H Monocytes (%) (Auto) 9.9 % (1.0-10.0) Eosinophils (%) (Auto) 2.7 % (0.0-3.0) Basophils (%) (Auto) 1.2 % (0.0-2.0) Erythrocyte Sedimentation Rate 9 MM/HR (0-20) Sodium Level 138 MMOL/L (136-145) Potassium Level 4.4 MMOL/L (3.5-5.1) Chloride Level 101 MMOL/L (98-107) Carbon Dioxide Level 28 MMOL/L (21-32) Anion Gap 9 mmol/L (5-15) Blood Urea Nitrogen 18 mg/dL (7-18) Creatinine 1.2 MG/DL (0.55-1.30) Estimat Glomerular Filtration Rate > 60 mL/min (>60) Glucose Level 173 MG/DL (74-106) H Calcium Level 8.9 MG/DL (8.5-10.1) Total Bilirubin 0.3 MG/DL (0.2-1.0) Aspartate Amino Transf (AST/SGOT) 28 U/L (15-37) Alanine Aminotransferase (ALT/SGPT) 47 U/L (12-78) Alkaline Phosphatase 88 U/L (46-116) C-Reactive Protein, Quantitative < 0.4 mg/dL (0.00-0.90) Total Protein 7.9 G/DL (6.4-8.2) Albumin 3.8 G/DL (3.4-5.0) Globulin 4.1 g/dL Albumin/Globulin Ratio 0.9 (1.0-2.7) L Plan Problems: (1) Cellulitis of right leg Assessment & Plan: Patient presents with full thickness wound distal, lateral R lower extremity which is (L)1cm x(W)x (D)0.3cm Wound has punched like appearance Wound bed moist with 100% slough, marginal erythema Small amt non-odorous exudate noted. Hemosiderin noted to both lower ext. Seems like chronic venous stasis ulcer. no significant varicose veins noted but has had laser venous ablation in the past Common femoral artery waveform analysis is within normal limits at rest. Color flow duplex sonography reveals minimal calcification throughout the superficial femoral, and popliteal arteries. There is no evidence of stenosis or occlusion within these segments.The posterior tibial, anterior tibial and dorsalis pedis arteries are also minimally calcified. However, Doppler tibial artery waveform analysis is within normal limits bilaterally. Imaging reveals a patent deep venous system bilaterally. There is no evidence of thrombus within the femoral, popliteal or tibial segments. The greater saphenous veins are also within normal limits. Doppler indicates normal spontaneous flow within these segments. Tx.Plan: Wash wound with NS, apply therahoney or hydrogel, okay to use alginate, apply skin protectant, apply foam dressing daily and prn Keep lower extremity elevated Heel protectors standard wound care and decubitus ulcer protocol venous and arterial US studies thank you. will follow with Nikhil Bunch Sep 01, 2018 12:02
--- NOTE | 2018-09-01 12:14 | General Progress Note ---
Assessment/Plan Status: stable, progressing Assessment/Plan MDD Anxiety d/o - change paxil 20mg qhs - ativan prn - provided ro/st Subjective Neurologic/Psychiatric: Reports: anxiety, depressed, emotional problems Allergies: Coded Allergies: ABACAVIR (Verified Allergy, Unknown, 01/29/09) DIDANOSINE (Verified Allergy, Unknown, 01/29/09) EFAVIRENZ (Verified Allergy, Unknown, 01/29/09) FOSAMPRENAVIR (Verified Allergy, Unknown, 01/29/09) INDINAVIR (Verified Allergy, Unknown, 08/30/18) SULFAMETHOXAZOLE (Verified Allergy, Unknown, 01/29/09) TRIMETHOPRIM (Verified Allergy, Unknown, 01/29/09) HYDROMORPHONE (Verified Adverse Reaction, Unknown, VOMITS, 06/12/12) Objective Last 24 Hour Vital Signs Date Time Temp Pulse Resp B/P (MAP) Pulse Ox O2 Delivery O2 Flow Rate FiO2 09/01/18 12:00 97.9 74 18 117/68 (84) 96 09/01/18 10:13 Room Air 09/01/18 09:05 74 18 94 Room Air 09/01/18 09:04 74 18 94 Room Air 21 09/01/18 09:01 97.5 09/01/18 08:00 97.5 69 18 129/68 (88) 96 09/01/18 04:00 98.8 70 18 127/73 (91) 94 09/01/18 00:00 98.5 71 19 147/86 (106) 97 08/31/18 21:00 Room Air 08/31/18 20:00 98.5 68 19 138/75 (96) 97 08/31/18 19:46 72 18 Room Air 21 08/31/18 17:05 97.9 08/31/18 16:00 97.2 71 18 145/88 (107) 97 Intake and Output 08/31/18 09/01/18 18:59 06:59 Intake Total 2180 ml 900 ml Output Total 400 ml 2500 ml Balance 1780 ml -1600 ml Intake Oral 2180 ml 600 ml IV Total 300 ml Output Urine Total 400 ml 2500 ml # Voids 8 6 Laboratory Tests 09/01/18 05:35: White Blood Count 3.5L, Red Blood Count 4.32L, Hemoglobin 14.0L, Hematocrit 39.2L, Mean Corpuscular Volume 91, Mean Corpuscular Hemoglobin 32.3H, Mean Corpuscular Hemoglobin Concent 35.7, Red Cell Distribution Width 10.9L, Platelet Count 129L, Mean Platelet Volume 8.7, Neutrophils (%) (Auto) 37.3L, Lymphocytes (%) (Auto) 48.8H, Monocytes (%) (Auto) 9.9, Eosinophils (%) (Auto) 2.7, Basophils (%) (Auto) 1.2, Erythrocyte Sedimentation Rate 9, Sodium Level 138, Potassium Level 4.4, Chloride Level 101, Carbon Dioxide Level 28, Anion Gap 9, Blood Urea Nitrogen 18, Creatinine 1.2, Estimat Glomerular Filtration Rate > 60, Glucose Level 173H, Calcium Level 8.9, Total Bilirubin 0.3, Aspartate Amino Transf (AST/SGOT) 28, Alanine Aminotransferase (ALT/SGPT) 47, Alkaline Phosphatase 88, C-Reactive Protein, Quantitative < 0.4, Total Protein 7.9, Albumin 3.8, Globulin 4.1, Albumin/Globulin Ratio 0.9L Height (Feet): 5 Height (Inches): 7.00 Weight (Pounds): 231 General Appearance: no apparent distress, alert Neurologic: oriented x 3, responsive, depressed affect Miah Hernandez MD Sep 01, 2018 12:14
--- NOTE | 2018-09-01 12:40 | Diagnostic Imaging Report ---
Indication: right leg pain Comparison: None Findings: Two views of the right tibia and fibula were obtained. No acute fracture, malalignment, or periosteal reaction are identified. There is anterior soft tissue swelling present. Impression: Negative examination of the tibia and fibula
--- NOTE | 2018-09-01 13:18 | Infectious Diseases Prog Note ---
Assessment/Plan Assessment/Plan A) 1) right leg cellulitis and possible infected wound and ulcer, non-healing x 1 month, ? osteomyelitis - x-ray - no osteo, sed rate only 9 which makes osteomyelitis less likely - clinically better - blood cultures - + gram +, ? pathogen vs contaminant 2) HIV - on anti-retrovirals 3) DM, HTN, anxiety, depression, asthma, hypothyroidism 4) allergies - multiple, noted 5) sh-negative, fh-nc, mar noted, notes and records noted 6) d/w RN P) 1) vancomycin and cefepime for now 2) check blood cultures, check labs, wound culture 3) surgery f/u on wound care 4) continue treatment per primary team 5) orders noted and entered 6) d/w patient Subjective Constitutional: Denies: fever HEENT: Denies: congestion Respiratory: Denies: shortness of breath Cardiovascular: Denies: chest pain Gastrointestinal/Abdominal: Denies: nausea, vomiting, diarrhea Genitourinary: Reports: other - no diehl; Denies: dysuria, hematuria Neurologic: Denies: headache, weakness Psychiatric: Denies: depression Skin: Denies: rash Hematologic: Denies: bleeding Musculoskeletal: Denies: pain Allergies: Coded Allergies: ABACAVIR (Verified Allergy, Unknown, 01/29/09) DIDANOSINE (Verified Allergy, Unknown, 01/29/09) EFAVIRENZ (Verified Allergy, Unknown, 01/29/09) FOSAMPRENAVIR (Verified Allergy, Unknown, 01/29/09) INDINAVIR (Verified Allergy, Unknown, 08/30/18) SULFAMETHOXAZOLE (Verified Allergy, Unknown, 01/29/09) TRIMETHOPRIM (Verified Allergy, Unknown, 01/29/09) HYDROMORPHONE (Verified Adverse Reaction, Unknown, VOMITS, 06/12/12) Objective Vital Signs Last 24 Hour Vital Signs Date Time Temp Pulse Resp B/P (MAP) Pulse Ox O2 Delivery O2 Flow Rate FiO2 09/01/18 12:00 97.9 74 18 117/68 (84) 96 09/01/18 10:13 Room Air 09/01/18 09:05 74 18 94 Room Air 09/01/18 09:04 74 18 94 Room Air 21 09/01/18 09:01 97.5 09/01/18 08:00 97.5 69 18 129/68 (88) 96 09/01/18 04:00 98.8 70 18 127/73 (91) 94 09/01/18 00:00 98.5 71 19 147/86 (106) 97 08/31/18 21:00 Room Air 08/31/18 20:00 98.5 68 19 138/75 (96) 97 08/31/18 19:46 72 18 Room Air 21 08/31/18 17:05 97.9 08/31/18 16:00 97.2 71 18 145/88 (107) 97 Height (Feet): 5 Height (Inches): 7.00 Weight (Pounds): 231 General Appearance: no acute distress HEENT: normocephalic, atraumatic, anicteric, mucous membranes moist Respiratory/Chest: lungs clear, normal breath sounds, no respiratory distress Cardiovascular: normal rate, regular rhythm Abdomen: normal bowel sounds, soft, non tender, no organomegaly Genitourinary: other - no diehl, no cva pain Extremities: no cyanosis, other - right leg erythema less, wound without change , still painful, less swelling Skin: no rash 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, alert, oriented x 3, responsive Lymphatic: no neck adenopathy Musculoskeletal: no effusion Objective x-ray - right leg - no osteo, report noted Microbiology Date/Time Source Procedure Growth Status 08/30/18 21:40 Blood Blood Culture - Preliminary Resulted 08/30/18 21:30 Blood Blood Culture - Preliminary NO GROWTH AFTER 24 HOURS Resulted 08/30/18 21:45 Wound Gram Stain - Final Resulted 08/30/18 21:45 Wound Culture - Preliminary Gram Positive Cocci Resulted Laboratory Tests Test 09/01/18 05:35 White Blood Count 3.5 K/UL (4.8-10.8) L Red Blood Count 4.32 M/UL (4.70-6.10) L Hemoglobin 14.0 G/DL (14.2-18.0) L Hematocrit 39.2 % (42.0-52.0) L Mean Corpuscular Volume 91 FL (80-99) Mean Corpuscular Hemoglobin 32.3 PG (27.0-31.0) H Mean Corpuscular Hemoglobin Concent 35.7 G/DL (32.0-36.0) Red Cell Distribution Width 10.9 % (11.6-14.8) L Platelet Count 129 K/UL (150-450) L Mean Platelet Volume 8.7 FL (6.5-10.1) Neutrophils (%) (Auto) 37.3 % (45.0-75.0) L Lymphocytes (%) (Auto) 48.8 % (20.0-45.0) H Monocytes (%) (Auto) 9.9 % (1.0-10.0) Eosinophils (%) (Auto) 2.7 % (0.0-3.0) Basophils (%) (Auto) 1.2 % (0.0-2.0) Erythrocyte Sedimentation Rate 9 MM/HR (0-20) Sodium Level 138 MMOL/L (136-145) Potassium Level 4.4 MMOL/L (3.5-5.1) Chloride Level 101 MMOL/L (98-107) Carbon Dioxide Level 28 MMOL/L (21-32) Anion Gap 9 mmol/L (5-15) Blood Urea Nitrogen 18 mg/dL (7-18) Creatinine 1.2 MG/DL (0.55-1.30) Estimat Glomerular Filtration Rate > 60 mL/min (>60) Glucose Level 173 MG/DL (74-106) H Calcium Level 8.9 MG/DL (8.5-10.1) Total Bilirubin 0.3 MG/DL (0.2-1.0) Aspartate Amino Transf (AST/SGOT) 28 U/L (15-37) Alanine Aminotransferase (ALT/SGPT) 47 U/L (12-78) Alkaline Phosphatase 88 U/L (46-116) C-Reactive Protein, Quantitative < 0.4 mg/dL (0.00-0.90) Total Protein 7.9 G/DL (6.4-8.2) Albumin 3.8 G/DL (3.4-5.0) Globulin 4.1 g/dL Albumin/Globulin Ratio 0.9 (1.0-2.7) L Current Medications Medications (Trade) Dose Ordered Sig/Jose Cruz Route PRN Reason Start Time Stop Time Status Last Admin Dose Admin Acetaminophen (Tylenol) 650 mg Q4H PRN ORAL Mild Pain (Pain Scale 1-3) 08/30/18 22:30 09/29/18 22:29 Acetaminophen (Tylenol) 650 mg Q4H PRN ORAL fever 08/30/18 22:30 09/29/18 22:29 Acetaminophen/ Hydrocodone Bitart (Axson 5/325) 1 tab Q6H PRN ORAL For Pain 08/30/18 22:30 09/06/18 22:29 08/31/18 10:47 Acetaminophen/ Hydrocodone Bitart (Axson 7.5/325) 1 tab Q4H PRN ORAL severe pain 08/30/18 22:30 09/06/18 22:29 08/31/18 23:25 Albuterol/ Ipratropium (Albuterol/ Ipratropium) 3 ml Q4H PRN HHN Shortness of Breath 08/30/18 22:45 09/04/18 22:44 Bisacodyl (Dulcolax) 10 mg HSPRN PRN RECTAL Constipation 08/30/18 22:30 09/29/18 22:29 Cefepime HCl 1 gm/ Dextrose 50 ml @ 100 mls/hr Q12HR IVPB 08/31/18 20:00 09/07/18 19:59 09/01/18 08:33 Dextrose (Dextrose 50%) 25 ml Q30M PRN IV Hypoglycemia 08/30/18 22:30 09/29/18 22:29 Dextrose (Dextrose 50%) 50 ml Q30M PRN IV Hypoglycemia 08/30/18 22:30 09/29/18 22:29 Docusate Sodium (Colace) 100 mg EVERY 12 HOURS ORAL 08/30/18 22:45 09/29/18 22:44 09/01/18 08:31 Finasteride (Proscar) 5 mg DAILY ORAL 08/31/18 09:00 09/30/18 08:59 09/01/18 08:32 Gabapentin (Neurontin) 300 mg TID ORAL 08/31/18 09:00 09/30/18 08:59 09/01/18 08:31 Heparin Sodium (Porcine) (Heparin 5000 units/ml) 5,000 units EVERY 12 HOURS SUBQ 08/31/18 09:00 09/30/18 08:59 09/01/18 08:32 Insulin Aspart (NovoLOG) BEFORE MEALS AND HS SUBQ 08/31/18 06:30 09/30/18 06:29 09/01/18 11:41 Levothyroxine Sodium (Synthroid) 50 mcg DAILY@0630 ORAL 08/31/18 06:30 09/30/18 06:29 09/01/18 05:54 Lorazepam (Ativan) 1 mg Q6H PRN ORAL For Anxiety 08/31/18 13:30 09/07/18 13:29 Montelukast Sodium (Singulair) 10 mg DAILY ORAL 08/31/18 09:00 09/30/18 08:59 09/01/18 08:31 Morphine Sulfate (Morphine Sulfate) 4 mg Q4H PRN IVP Severe Pain (pain scale 7-10) 09/01/18 00:15 09/08/18 00:14 09/01/18 08:31 Nebivolol (Bystolic) 10 mg BID ORAL 08/31/18 09:00 09/30/18 08:59 09/01/18 08:31 Ondansetron HCl (Zofran) 4 mg Q6H PRN IVP Nausea & Vomiting 08/30/18 22:30 09/29/18 22:29 09/01/18 10:15 Paroxetine HCl (Paxil) 20 mg BEDTIME ORAL 09/01/18 21:00 10/01/18 20:59 Patient Own Medication (Patient's Own Med) 1 ea BID ORAL 08/31/18 09:00 09/30/18 08:59 09/01/18 10:15 Patient Own Medication (Patient's Own Med) 1 ea DAILY ORAL 08/31/18 09:00 09/30/18 08:59 09/01/18 10:14 Patient Own Medication (Patient's Own Med) 1 ea DAILY ORAL 08/31/18 09:00 09/30/18 08:59 09/01/18 10:15 Polyethylene Glycol (Miralax) 17 gm HSPRN PRN ORAL Constipation 08/30/18 22:30 09/29/18 22:29 Tiotropium [place] (Spiriva Inhaler) 1 puff DAILY INH 08/31/18 09:00 09/30/18 08:59 09/01/18 09:03 Vancomycin HCl (Vanco rx to dose) 1 ea DAILY PRN MISC Per rx protocol 08/30/18 22:30 09/29/18 22:29 Vancomycin HCl/ Dextrose 250 ml @ 125 mls/hr Q24H IVPB 08/31/18 22:00 09/05/18 21:59 08/31/18 21:52 Jairo Chavez MD Sep 01, 2018 13:18
[2018-09-01 16:01] VITALS: BP 121/65
[2018-09-01 20:00] VITALS: BP 134/72
[2018-09-01] MEDS: PARoxetine 20mg tab ORAL SCH (20:21)
[2018-09-01] MEDS: Vancomycin 1500mg IVPB SCH (21:25)
[2018-09-02] VITALS: BP 132/73
[2018-09-02] MEDS: Morphine Sulfate 4mg/ml Inj (IV/IM USE ONLY) IVP PRN ×5 (00:03→22:32)
[2018-09-02 04:00] VITALS: BP 122/59
[2018-09-02] MEDS: NovoLOG Insulin Flexpen SUBQ SCH ×4 (05:50→22:07)
[2018-09-02 07:21] LABS: BASOPHILS % (AUTO) 1.2 % (0.0-2.0); EOSINOPHILS % (AUTO) 2.4 % (0.0-3.0); HEMATOCRIT 38.4 % (42.0-52.0); HEMOGLOBIN 13.5 G/DL (14.2-18.0); LYMPHOCYTES % (AUTO) 50.1 % (20.0-45.0); MEAN CORPUSCULAR VOLUME 91 FL (80-99); MONOCYTES % (AUTO) 9.6 % (1.0-10.0); NEUTROPHILS % (AUTO) 36.7 % (45.0-75.0); PLATELET COUNT 143 K/UL (150-450); RED BLOOD COUNT 4.22 M/UL (4.70-6.10); WHITE BLOOD COUNT 3.5 K/UL (4.8-10.8)
[2018-09-02 07:28] LABS: ANION GAP 7 mmol/L (5-15); BLOOD UREA NITROGEN 26 mg/dL (7-18); CALCIUM 8.6 MG/DL (8.5-10.1); CARBON DIOXIDE 29 MMOL/L (21-32); CHLORIDE 101 MMOL/L (98-107); CREATININE 1.2 MG/DL (0.55-1.30); POTASSIUM 4.3 MMOL/L (3.5-5.1); SODIUM 137 MMOL/L (136-145)
--- NOTE | 2018-09-02 08:40 | General Progress Note ---
Assessment/Plan Problem List: (1) Ulcer of right leg Assessment & Plan: cont vancomycin vasc duplex reviewed, neg acute, no claudication completed art duplx reviewed, no sig art occlusions noted xr reviewed, no OM noted appreciate gen surg/wound care recs ID consulted, appreciate recs fluids cx sent, pending final cont abx, per ID recs, pending dispo recs as well ICD Codes: L97.919 - Non-pressure chronic ulcer of unspecified part of right lower leg with unspecified severity SNOMED: 38657056 (2) Cellulitis of right leg Assessment & Plan: cont abx as per #1 ICD Codes: L03.115 - Cellulitis of right lower limb SNOMED: 888102769 (3) HIV (human immunodeficiency virus infection) Assessment & Plan: resume home meds stable ICD Codes: Z21 - Asymptomatic human immunodeficiency virus [HIV] infection status SNOMED: 55285541 (4) COPD (chronic obstructive pulmonary disease) Assessment & Plan: stable no acute resp failure ICD Codes: J44.9 - Chronic obstructive pulmonary disease, unspecified SNOMED: 67165692 (5) Diabetes Assessment & Plan: iss accuchecks ICD Codes: E11.9 - Diabetes SNOMED: 02563705 Qualifiers: Qualified Codes: E11.51 - Type 2 diabetes mellitus with diabetic peripheral angiopathy without gangrene; 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 (6) Hypertension Assessment & Plan: stable resume home meds monitor vitals ICD Codes: I10 - Hypertension SNOMED: 60848688 Status: stable Assessment/Plan ppx: heparin diet: ccd5 I have spent spend over 30 minutes regarding patient care and counseling and over 18 minutes of face to face time with the patient Subjective Date patient seen: Sep 02, 2018 Time patient seen: 08:36 Allergies: Coded Allergies: ABACAVIR (Verified Allergy, Unknown, 01/29/09) DIDANOSINE (Verified Allergy, Unknown, 01/29/09) EFAVIRENZ (Verified Allergy, Unknown, 01/29/09) FOSAMPRENAVIR (Verified Allergy, Unknown, 01/29/09) INDINAVIR (Verified Allergy, Unknown, 08/30/18) SULFAMETHOXAZOLE (Verified Allergy, Unknown, 01/29/09) TRIMETHOPRIM (Verified Allergy, Unknown, 01/29/09) HYDROMORPHONE (Verified Adverse Reaction, Unknown, VOMITS, 06/12/12) Subjective f/u right LE ulcer/cellulitis, HIV, right leg pain feeling better, state pain is well controlled denies any fevers/chills no acute events overnight xr and art duplx reviewed, no OM noted, no art occlusions noted gen surg/wound care and ID follow up wound cx pending final results ROS: 12 point ros reviewed and negative except for the above Objective Last 24 Hour Vital Signs Date Time Temp Pulse Resp B/P (MAP) Pulse Ox O2 Delivery O2 Flow Rate FiO2 09/02/18 04:00 97.2 72 20 122/59 (80) 09/02/18 00:00 97.6 69 20 132/73 (92) 92 09/01/18 21:00 Room Air 09/01/18 20:00 97.5 79 20 134/72 (92) 95 09/01/18 16:01 98.1 69 18 121/65 (83) 94 09/01/18 13:46 97.9 09/01/18 12:00 97.9 74 18 117/68 (84) 96 09/01/18 10:13 Room Air 09/01/18 09:05 74 18 94 Room Air 09/01/18 09:04 74 18 94 Room Air 21 Intake and Output 09/01/18 09/02/18 19:00 07:00 Intake Total 600 ml 540 ml Balance 600 ml 540 ml Intake Oral 550 ml 240 ml IV Total 50 ml 300 ml # Voids 3 4 Laboratory Tests 09/02/18 05:35: White Blood Count 3.5L, Red Blood Count 4.22L, Hemoglobin 13.5L, Hematocrit 38.4L, Mean Corpuscular Volume 91, Mean Corpuscular Hemoglobin 32.0H, Mean Corpuscular Hemoglobin Concent 35.1, Red Cell Distribution Width 11.0L, Platelet Count 143L, Mean Platelet Volume 7.7, Neutrophils (%) (Auto) 36.7L, Lymphocytes (%) (Auto) 50.1H, Monocytes (%) (Auto) 9.6, Eosinophils (%) (Auto) 2.4, Basophils (%) (Auto) 1.2, Sodium Level 137, Potassium Level 4.3, Chloride Level 101, Carbon Dioxide Level 29, Anion Gap 7, Blood Urea Nitrogen 26H, Creatinine 1.2, Estimat Glomerular Filtration Rate > 60, Glucose Level 160H, Calcium Level 8.6 Height (Feet): 5 Height (Inches): 7.00 Weight (Pounds): 231 General Appearance: WD/WN, no apparent distress, alert EENT: PERRL/EOMI, normal ENT inspection, TMs normal, pharynx normal Neck: non-tender, normal alignment, supple, normal inspection Cardiovascular: normal peripheral pulses, normal rate, regular rhythm Respiratory/Chest: chest wall non-tender, lungs clear, normal breath sounds, no respiratory distress, no accessory muscle use Abdomen: normal bowel sounds, non tender, soft, no organomegaly, no mass Extremities: normal range of motion, non-tender, normal inspection 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
[2018-09-02] MEDS: Docusate 100mg cap ORAL SCH ×2 (08:52→21:55)
[2018-09-02] MEDS: Montelukast 10mg tablet ORAL SCH (08:53)
[2018-09-02] MEDS: Patient's Own Med - Tivicay 50mg ORAL SCH (08:57)
[2018-09-02] MEDS: DESCOVY ORAL SCH (08:57)
[2018-09-02 09:00] VITALS: BP 122/67
[2018-09-02] MEDS: Heparin 5000 units/ml inj SUBQ SCH ×2 (09:00→22:02)
[2018-09-02 12:00] VITALS: BP 128/70
--- NOTE | 2018-09-02 17:53 | General Surgery Progress Note ---
General Surgery-Progress Note Subjective Symptoms: improved, tolerating diet, passing flatus, BM Additional Comments ambulatory. still c/o pain unchanged. somewhat improved. edema much improved. Objective Last 24 Hour Vital Signs Date Time Temp Pulse Resp B/P (MAP) Pulse Ox O2 Delivery O2 Flow Rate FiO2 09/02/18 12:00 97.6 70 18 128/70 (89) 98 09/02/18 10:03 66 18 94 Room Air 21 09/02/18 09:59 63 16 94 Room Air 21 09/02/18 09:00 Room Air 09/02/18 09:00 97.5 65 20 122/67 (85) 65 09/02/18 04:00 97.2 72 20 122/59 (80) 09/02/18 00:00 97.6 69 20 132/73 (92) 92 09/01/18 21:00 Room Air 09/01/18 20:00 97.5 79 20 134/72 (92) 95 I&O Intake and Output 09/01/18 09/02/18 19:00 07:00 Intake Total 600 ml 540 ml Balance 600 ml 540 ml Intake Oral 550 ml 240 ml IV Total 50 ml 300 ml # Voids 3 4 Dressing: saturated Wound: other Drains: other Cardiovascular: RSR Respiratory: clear Abdomen: soft, flat, non-tender, present bowel sounds Extremities: other Laboratory Tests Test 09/02/18 05:35 White Blood Count 3.5 K/UL (4.8-10.8) L Red Blood Count 4.22 M/UL (4.70-6.10) L Hemoglobin 13.5 G/DL (14.2-18.0) L Hematocrit 38.4 % (42.0-52.0) L Mean Corpuscular Volume 91 FL (80-99) Mean Corpuscular Hemoglobin 32.0 PG (27.0-31.0) H Mean Corpuscular Hemoglobin Concent 35.1 G/DL (32.0-36.0) Red Cell Distribution Width 11.0 % (11.6-14.8) L Platelet Count 143 K/UL (150-450) L Mean Platelet Volume 7.7 FL (6.5-10.1) Neutrophils (%) (Auto) 36.7 % (45.0-75.0) L Lymphocytes (%) (Auto) 50.1 % (20.0-45.0) H Monocytes (%) (Auto) 9.6 % (1.0-10.0) Eosinophils (%) (Auto) 2.4 % (0.0-3.0) Basophils (%) (Auto) 1.2 % (0.0-2.0) Sodium Level 137 MMOL/L (136-145) Potassium Level 4.3 MMOL/L (3.5-5.1) Chloride Level 101 MMOL/L (98-107) Carbon Dioxide Level 29 MMOL/L (21-32) Anion Gap 7 mmol/L (5-15) Blood Urea Nitrogen 26 mg/dL (7-18) H Creatinine 1.2 MG/DL (0.55-1.30) Estimat Glomerular Filtration Rate > 60 mL/min (>60) Glucose Level 160 MG/DL (74-106) H Calcium Level 8.6 MG/DL (8.5-10.1) Plan Problems: (1) Cellulitis of right leg Assessment & Plan: Patient presents with full thickness wound distal, lateral R lower extremity which is (L)1cm x(W)x (D)0.3cm Wound has punched like appearance Wound bed moist with 100% slough, marginal erythema Small amt non-odorous exudate noted. Hemosiderin noted to both lower ext. Seems like chronic venous stasis ulcer. no significant varicose veins noted but has had laser venous ablation in the past Common femoral artery waveform analysis is within normal limits at rest. Color flow duplex sonography reveals minimal calcification throughout the superficial femoral, and popliteal arteries. There is no evidence of stenosis or occlusion within these segments.The posterior tibial, anterior tibial and dorsalis pedis arteries are also minimally calcified. However, Doppler tibial artery waveform analysis is within normal limits bilaterally. Imaging reveals a patent deep venous system bilaterally. There is no evidence of thrombus within the femoral, popliteal or tibial segments. The greater saphenous veins are also within normal limits. Doppler indicates normal spontaneous flow within these segments. Xray reviewed and negative Tx.Plan: Wash wound with NS, apply therahoney or hydrogel, okay to use alginate, apply skin protectant, apply foam dressing daily and prn Keep lower extremity elevated Heel protectors standard wound care and decubitus ulcer protocol outpatient wound care scheduled with Dr. Paul for [facility] outpatient care thank you. will follow with Nikhil Bunch Sep 02, 2018 17:53
--- NOTE | 2018-09-02 18:55 | Infectious Diseases Prog Note ---
Assessment/Plan Assessment/Plan A) 1) right leg cellulitis and possible infected wound and ulcer, non-healing x 1 month, ? 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 osteomyelitis 3) surgery f/u on wound care 4) continue treatment per primary team 5) orders noted and entered 6) d/w patient 7) monitor labs 8) communicated with Dr. Cordoba Subjective Constitutional: Denies: fever, chills, fatigue HEENT: Denies: congestion Respiratory: Denies: shortness of breath Cardiovascular: Denies: chest pain Gastrointestinal/Abdominal: Denies: nausea, vomiting Genitourinary: Denies: dysuria, hematuria, frequency Neurologic: Denies: headache, numbness, weakness Psychiatric: Denies: depression Skin: Denies: rash Hematologic: Denies: bleeding Musculoskeletal: Reports: pain - still with severe right leg pain Allergies: Coded Allergies: ABACAVIR (Verified Allergy, Unknown, 01/29/09) DIDANOSINE (Verified Allergy, Unknown, 01/29/09) EFAVIRENZ (Verified Allergy, Unknown, 01/29/09) FOSAMPRENAVIR (Verified Allergy, Unknown, 01/29/09) INDINAVIR (Verified Allergy, Unknown, 08/30/18) SULFAMETHOXAZOLE (Verified Allergy, Unknown, 01/29/09) TRIMETHOPRIM (Verified Allergy, Unknown, 01/29/09) HYDROMORPHONE (Verified Adverse Reaction, Unknown, VOMITS, 06/12/12) Objective Vital Signs Last 24 Hour Vital Signs Date Time Temp Pulse Resp B/P (MAP) Pulse Ox O2 Delivery O2 Flow Rate FiO2 09/02/18 12:00 97.6 70 18 128/70 (89) 98 09/02/18 10:03 66 18 94 Room Air 21 09/02/18 09:59 63 16 94 Room Air 21 09/02/18 09:00 Room Air 11/29/18 09:00 97.5 65 20 122/67 (85) 65 09/02/18 04:00 97.2 72 20 122/59 (80) 09/02/18 00:00 97.6 69 20 132/73 (92) 92 09/01/18 21:00 Room Air 09/01/18 20:00 97.5 79 20 134/72 (92) 95 Height (Feet): 5 Height (Inches): 7.00 Weight (Pounds): 231 General Appearance: no acute distress HEENT: normocephalic, atraumatic, anicteric, mucous membranes moist Respiratory/Chest: lungs clear, normal breath sounds, no respiratory distress, no accessory muscle use Cardiovascular: normal rate, regular rhythm, no gallop/murmur, no JVD Abdomen: normal bowel sounds, soft, non tender, no organomegaly, non distended Genitourinary: other - no diehl, no cva pain Extremities: no cyanosis, other - cellulitis/warmth/erythema less, still with severe pain per patient Skin: no rash 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, alert, oriented x 3, responsive Lymphatic: no neck adenopathy Musculoskeletal: no effusion Objective x-ray - right leg - no osteo, report noted Microbiology Date/Time Source Procedure Growth Status 08/30/18 21:40 Blood Blood Culture - Preliminary Staphylococcus Sp Coag Neg Resulted 08/30/18 21:45 Wound Gram Stain - Final Complete 08/30/18 21:45 Wound Culture - Final Staphylococcus Epidermidis Complete Microbiology Date/Time Source Procedure Growth Status 08/30/18 21:40 Blood Blood Culture - Preliminary Staphylococcus Sp Coag Neg Resulted 08/30/18 21:30 Blood Blood Culture - Preliminary NO GROWTH AFTER 48 HOURS Resulted 08/30/18 21:45 Wound Gram Stain - Final Complete 08/30/18 21:45 Wound Culture - Final Staphylococcus Epidermidis Complete Laboratory Tests Test 09/02/18 05:35 White Blood Count 3.5 K/UL (4.8-10.8) L Red Blood Count 4.22 M/UL (4.70-6.10) L Hemoglobin 13.5 G/DL (14.2-18.0) L Hematocrit 38.4 % (42.0-52.0) L Mean Corpuscular Volume 91 FL (80-99) Mean Corpuscular Hemoglobin 32.0 PG (27.0-31.0) H Mean Corpuscular Hemoglobin Concent 35.1 G/DL (32.0-36.0) Red Cell Distribution Width 11.0 % (11.6-14.8) L Platelet Count 143 K/UL (150-450) L Mean Platelet Volume 7.7 FL (6.5-10.1) Neutrophils (%) (Auto) 36.7 % (45.0-75.0) L Lymphocytes (%) (Auto) 50.1 % (20.0-45.0) H Monocytes (%) (Auto) 9.6 % (1.0-10.0) Eosinophils (%) (Auto) 2.4 % (0.0-3.0) Basophils (%) (Auto) 1.2 % (0.0-2.0) Sodium Level 137 MMOL/L (136-145) Potassium Level 4.3 MMOL/L (3.5-5.1) Chloride Level 101 MMOL/L (98-107) Carbon Dioxide Level 29 MMOL/L (21-32) Anion Gap 7 mmol/L (5-15) Blood Urea Nitrogen 26 mg/dL (7-18) H Creatinine 1.2 MG/DL (0.55-1.30) Estimat Glomerular Filtration Rate > 60 mL/min (>60) Glucose Level 160 MG/DL (74-106) H Calcium Level 8.6 MG/DL (8.5-10.1) Current Medications Medications (Trade) Dose Ordered Sig/Jose Cruz Route PRN Reason Start Time Stop Time Status Last Admin Dose Admin Acetaminophen (Tylenol) 650 mg Q4H PRN ORAL Mild Pain (Pain Scale 1-3) 08/30/18 22:30 09/29/18 22:29 Acetaminophen (Tylenol) 650 mg Q4H PRN ORAL fever 08/30/18 22:30 09/29/18 22:29 Acetaminophen/ Hydrocodone Bitart ([place] 5/325) 1 tab Q6H PRN ORAL For Pain 08/30/18 22:30 09/06/18 22:29 08/31/18 10:47 Acetaminophen/ Hydrocodone Bitart ([place] 7.5/325) 1 tab Q4H PRN ORAL severe pain 08/30/18 22:30 09/06/18 22:29 08/31/18 23:25 Albuterol/ Ipratropium (Albuterol/ Ipratropium) 3 ml Q4H PRN HHN Shortness of Breath 08/30/18 22:45 09/04/18 22:44 Bisacodyl (Dulcolax) 10 mg HSPRN PRN RECTAL Constipation 08/30/18 22:30 09/29/18 22:29 Cefepime HCl 1 gm/ Dextrose 50 ml @ 100 mls/hr Q12HR IVPB 08/31/18 20:00 09/07/18 19:59 09/02/18 09:17 Dextrose (Dextrose 50%) 25 ml Q30M PRN IV Hypoglycemia 08/30/18 22:30 09/29/18 22:29 Dextrose (Dextrose 50%) 50 ml Q30M PRN IV Hypoglycemia 08/30/18 22:30 09/29/18 22:29 Docusate Sodium (Colace) 100 mg EVERY 12 HOURS ORAL 08/30/18 22:45 09/29/18 22:44 09/02/18 08:52 Finasteride (Proscar) 5 mg DAILY ORAL 08/31/18 09:00 09/30/18 08:59 09/02/18 08:52 Gabapentin (Neurontin) 300 mg TID ORAL 08/31/18 09:00 09/30/18 08:59 09/02/18 17:46 Heparin Sodium (Porcine) (Heparin 5000 units/ml) 5,000 units EVERY 12 HOURS SUBQ 08/31/18 09:00 09/30/18 08:59 09/02/18 09:00 Insulin Aspart (NovoLOG) BEFORE MEALS AND HS SUBQ 08/31/18 06:30 09/30/18 06:29 09/02/18 18:10 Levothyroxine Sodium (Synthroid) 50 mcg DAILY@0630 ORAL 08/31/18 06:30 09/30/18 06:29 09/02/18 05:49 Lorazepam (Ativan) 1 mg Q6H PRN ORAL For Anxiety 08/31/18 13:30 09/07/18 13:29 Montelukast Sodium (Singulair) 10 mg DAILY ORAL 08/31/18 09:00 09/30/18 08:59 09/02/18 08:53 Morphine Sulfate (Morphine Sulfate) 4 mg Q4H PRN IVP Severe Pain (pain scale 7-10) 09/01/18 00:15 09/08/18 00:14 09/02/18 15:57 Nebivolol (Bystolic) 10 mg BID ORAL 08/31/18 09:00 09/30/18 08:59 09/02/18 17:46 Ondansetron HCl (Zofran) 4 mg Q6H PRN IVP Nausea & Vomiting 08/30/18 22:30 09/29/18 22:29 09/01/18 10:15 Paroxetine HCl (Paxil) 20 mg BEDTIME ORAL 09/01/18 21:00 10/01/18 20:59 09/01/18 20:21 Patient Own Medication (Patient's Own Med) 1 ea BID ORAL 08/31/18 09:00 09/30/18 08:59 09/02/18 17:48 Patient Own Medication (Patient's Own Med) 1 ea DAILY ORAL 08/31/18 09:00 09/30/18 08:59 09/02/18 08:57 Patient Own Medication (Patient's Own Med) 1 ea DAILY ORAL 08/31/18 09:00 09/30/18 08:59 09/02/18 08:57 Polyethylene Glycol (Miralax) 17 gm HSPRN PRN ORAL Constipation 08/30/18 22:30 09/29/18 22:29 Tiotropium [place] (Spiriva Inhaler) 1 puff DAILY INH 08/31/18 09:00 09/30/18 08:59 09/02/18 09:59 Vancomycin HCl (Vanco rx to dose) 1 ea DAILY PRN MISC Per rx protocol 08/30/18 22:30 09/29/18 22:29 Vancomycin HCl/ Dextrose 250 ml @ 125 mls/hr Q24H IVPB 08/31/18 22:00 09/05/18 21:59 09/01/18 21:25 Jairo Chavez MD Sep 02, 2018 18:54
[2018-09-02 20:00] VITALS: BP 123/77
[2018-09-02] MEDS: PARoxetine 20mg tab ORAL SCH (21:55)
[2018-09-02] MEDS: Vancomycin 1500mg IVPB SCH ×2 (22:10→22:19)
--- NOTE | 2018-09-02 23:03 | General Progress Note ---
Assessment/Plan Assessment/Plan MDD Anxiety d/o - change paxil 20mg qhs - ativan prn - provided ro/st Subjective Neurologic/Psychiatric: Reports: anxiety, depressed, emotional problems Allergies: Coded Allergies: ABACAVIR (Verified Allergy, Unknown, 01/29/09) DIDANOSINE (Verified Allergy, Unknown, 01/29/09) EFAVIRENZ (Verified Allergy, Unknown, 01/29/09) FOSAMPRENAVIR (Verified Allergy, Unknown, 01/29/09) INDINAVIR (Verified Allergy, Unknown, 08/30/18) SULFAMETHOXAZOLE (Verified Allergy, Unknown, 01/29/09) TRIMETHOPRIM (Verified Allergy, Unknown, 01/29/09) HYDROMORPHONE (Verified Adverse Reaction, Unknown, VOMITS, 06/12/12) Objective Last 24 Hour Vital Signs Date Time Temp Pulse Resp B/P (MAP) Pulse Ox O2 Delivery O2 Flow Rate FiO2 09/02/18 20:00 97.7 59 20 123/77 (92) 95 09/02/18 12:00 97.6 70 18 128/70 (89) 98 09/02/18 10:03 66 18 94 Room Air 21 09/02/18 09:59 63 16 94 Room Air 21 09/02/18 09:00 Room Air 09/02/18 09:00 97.5 65 20 122/67 (85) 65 09/02/18 04:00 97.2 72 20 122/59 (80) 09/02/18 00:00 97.6 69 20 132/73 (92) 92 Intake and Output 09/01/18 09/02/18 19:00 07:00 Intake Total 600 ml 540 ml Balance 600 ml 540 ml Intake Oral 550 ml 240 ml IV Total 50 ml 300 ml # Voids 3 4 Laboratory Tests 09/02/18 05:35: White Blood Count 3.5L, Red Blood Count 4.22L, Hemoglobin 13.5L, Hematocrit 38.4L, Mean Corpuscular Volume 91, Mean Corpuscular Hemoglobin 32.0H, Mean Corpuscular Hemoglobin Concent 35.1, Red Cell Distribution Width 11.0L, Platelet Count 143L, Mean Platelet Volume 7.7, Neutrophils (%) (Auto) 36.7L, Lymphocytes (%) (Auto) 50.1H, Monocytes (%) (Auto) 9.6, Eosinophils (%) (Auto) 2.4, Basophils (%) (Auto) 1.2, Sodium Level 137, Potassium Level 4.3, Chloride Level 101, Carbon Dioxide Level 29, Anion Gap 7, Blood Urea Nitrogen 26H, Creatinine 1.2, Estimat Glomerular Filtration Rate > 60, Glucose Level 160H, Calcium Level 8.6 09/02/18 21:10: Vancomycin Level Trough 3.1L Height (Feet): 5 Height (Inches): 7.00 Weight (Pounds): 231 General Appearance: alert Neurologic: oriented x 3, responsive, depressed affect Miah Hernandez MD Sep 02, 2018 23:03
[2018-09-03] VITALS: BP 139/72
[2018-09-03 04:00] VITALS: BP 125/68
[2018-09-03] MEDS: NovoLOG Insulin Flexpen SUBQ SCH ×4 (07:01→21:10)
[2018-09-03] MEDS: Morphine Sulfate 4mg/ml Inj (IV/IM USE ONLY) IVP PRN ×3 (07:01→20:49)
[2018-09-03] MEDS: DESCOVY ORAL SCH (09:00)
[2018-09-03] MEDS: Patient's Own Med - Tivicay 50mg ORAL SCH (09:00)
[2018-09-03] MEDS: Montelukast 10mg tablet ORAL SCH (09:46)
[2018-09-03] MEDS: Docusate 100mg cap ORAL SCH ×2 (09:48→20:41)
[2018-09-03] MEDS: Heparin 5000 units/ml inj SUBQ SCH ×2 (09:50→20:42)
--- NOTE | 2018-09-03 11:45 | General Progress Note ---
Assessment/Plan Problem List: (1) Ulcer of right leg Assessment & Plan: cont vancomycin vasc duplex reviewed, neg acute, no claudication completed art duplx reviewed, no sig art occlusions noted he's a chronic vasculopath, has had vasc ligation in the past xr reviewed, no OM noted, Pending MRI per ID recs.. appreciate gen surg/wound care recs ID consulted, appreciate recs fluids cont abx, per ID recs, pending dispo recs as well ICD Codes: L97.919 - Non-pressure chronic ulcer of unspecified part of right lower leg with unspecified severity SNOMED: 70396626 (2) Cellulitis of right leg Assessment & Plan: cont abx as per #1 ICD Codes: L03.115 - Cellulitis of right lower limb SNOMED: 433766433 (3) HIV (human immunodeficiency virus infection) Assessment & Plan: resume home meds stable ICD Codes: Z21 - Asymptomatic human immunodeficiency virus [HIV] infection status SNOMED: 80213362 (4) COPD (chronic obstructive pulmonary disease) Assessment & Plan: stable no acute resp failure ICD Codes: J44.9 - Chronic obstructive pulmonary disease, unspecified SNOMED: 00027543 (5) Diabetes Assessment & Plan: iss accuchecks ICD Codes: E11.9 - Diabetes SNOMED: 11500847 Qualifiers: Qualified Codes: E11.51 - Type 2 diabetes mellitus with diabetic peripheral angiopathy without gangrene; Z79.4 - tobacco hanger (current) use of insulin (6) Hypertension Assessment & Plan: stable resume home meds monitor vitals ICD Codes: I10 - Hypertension SNOMED: 44421861 Status: stable Assessment/Plan ppx: heparin diet: ccd5 I have spent spend over 38 minutes regarding patient care and counseling and over 22 minutes of face to face time with the patient Subjective Date patient seen: Sep 03, 2018 Time patient seen: 11:44 Allergies: Coded Allergies: ABACAVIR (Verified Allergy, Unknown, 01/29/09) DIDANOSINE (Verified Allergy, Unknown, 01/29/09) EFAVIRENZ (Verified Allergy, Unknown, 01/29/09) FOSAMPRENAVIR (Verified Allergy, Unknown, 01/29/09) INDINAVIR (Verified Allergy, Unknown, 08/30/18) SULFAMETHOXAZOLE (Verified Allergy, Unknown, 01/29/09) TRIMETHOPRIM (Verified Allergy, Unknown, 01/29/09) HYDROMORPHONE (Verified Adverse Reaction, Unknown, VOMITS, 06/12/12) Subjective f/u right LE ulcer/cellulitis, HIV, right leg pain feeling better, state pain is well controlled denies any fevers/chills no acute events overnight xr and art duplx reviewed, no OM noted, no art occlusions noted has had vascular ligation in the past , chronic vasculopath gen surg/wound care and ID follow up pending MRI , concerns for OM ROS: 12 point ros reviewed and negative except for the above Objective Last 24 Hour Vital Signs Date Time Temp Pulse Resp B/P (MAP) Pulse Ox O2 Delivery O2 Flow Rate FiO2 09/03/18 09:02 64 16 95 Room Air 21 09/03/18 09:02 64 16 95 Room Air 21 09/03/18 09:00 Room Air 09/03/18 04:00 98.0 69 20 125/68 (87) 96 09/03/18 00:00 97.3 63 20 139/72 (94) 96 09/02/18 23:02 97.7 09/02/18 21:00 Room Air 09/02/18 20:00 97.7 59 20 123/77 (92) 95 09/02/18 12:00 97.6 70 18 128/70 (89) 98 Intake and Output 09/02/18 09/03/18 18:59 06:59 Intake Total 420 ml 1450 ml Output Total 1100 ml Balance 420 ml 350 ml Intake Oral 420 ml 600 ml IV Total 250 ml Other 600 ml Output Urine Total 1100 ml # Voids 2 Laboratory Tests 09/02/18 21:10: Vancomycin Level Trough 3.1L Height (Feet): 5 Height (Inches): 7.00 Weight (Pounds): 231 General Appearance: WD/WN, no apparent distress, alert EENT: PERRL/EOMI, normal ENT inspection, TMs normal, pharynx normal Neck: non-tender, normal alignment, supple Cardiovascular: normal peripheral pulses, normal rate, regular rhythm Respiratory/Chest: chest wall non-tender, lungs clear, normal breath sounds Abdomen: normal bowel sounds, non tender, soft, no organomegaly, no mass Extremities: normal range of motion, other - right corbin punched out ulcer, well healing 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
[2018-09-03] MEDS: Vancomycin 1500mg IVPB SCH ×2 (11:55→22:15)
[2018-09-03 12:00] VITALS: BP 152/86
--- NOTE | 2018-09-03 14:27 | General Progress Note ---
Assessment/Plan Status: stable, progressing Assessment/Plan MDD Anxiety d/o - change paxil 20mg qhs - ativan prn - provided ro/st Subjective Neurologic/Psychiatric: Reports: anxiety, depressed, emotional problems Allergies: Coded Allergies: ABACAVIR (Verified Allergy, Unknown, 01/29/09) DIDANOSINE (Verified Allergy, Unknown, 01/29/09) EFAVIRENZ (Verified Allergy, Unknown, 01/29/09) FOSAMPRENAVIR (Verified Allergy, Unknown, 01/29/09) INDINAVIR (Verified Allergy, Unknown, 08/30/18) SULFAMETHOXAZOLE (Verified Allergy, Unknown, 01/29/09) TRIMETHOPRIM (Verified Allergy, Unknown, 01/29/09) HYDROMORPHONE (Verified Adverse Reaction, Unknown, VOMITS, 06/12/12) Objective Last 24 Hour Vital Signs Date Time Temp Pulse Resp B/P (MAP) Pulse Ox O2 Delivery O2 Flow Rate FiO2 09/03/18 09:02 64 16 95 Room Air 21 09/03/18 09:02 64 16 95 Room Air 21 09/03/18 09:00 Room Air 09/03/18 04:00 98.0 69 20 125/68 (87) 96 09/03/18 00:00 97.3 63 20 139/72 (94) 96 09/02/18 23:02 97.7 09/02/18 21:00 Room Air 09/02/18 20:00 97.7 59 20 123/77 (92) 95 Intake and Output 09/02/18 09/03/18 18:59 06:59 Intake Total 420 ml 1450 ml Output Total 1100 ml Balance 420 ml 350 ml Intake Oral 420 ml 600 ml IV Total 250 ml Other 600 ml Output Urine Total 1100 ml # Voids 2 Laboratory Tests 09/02/18 21:10: Vancomycin Level Trough 3.1L Height (Feet): 5 Height (Inches): 7.00 Weight (Pounds): 231 General Appearance: alert Neurologic: oriented x 3, responsive, depressed affect Miah Hernandez MD Sep 03, 2018 14:27
--- NOTE | 2018-09-03 15:55 | Diagnostic Imaging Report ---
Indication: Cellulitis on the lateral side of the right leg with a small open wound, history of diabetes Technique: Sagittal, axial, and coronal T1 and STIR images were obtained of the distal leg Comparison: Reference made to plain radiograph 09/01/2018 Findings: There is edema of the lateral subcutaneous fat, both cephalad and caudad to a marker. The subcutaneous fat edema extends in the lateral aspect of the hindfoot and midfoot. It also extends anteriorly and posteriorly. No evidence of cellulitis or myositis deep to the superficial fascia demonstrated. No focal drainable fluid collection demonstrated. The osseous marrow signal is normal. The visualized large tendons are unremarkable. There may be a small skin defect correlating to stated clinical history of ulcer Impression: Evidence of superficial soft tissue edema,Likely on the basis of cellulitis given stated clinical history No evidence of deep muscular infection or osteomyelitis. No evidence of drainable abscess. No evidence of soft tissue gas demonstrated.
[2018-09-03 16:00] VITALS: BP 138/74
--- NOTE | 2018-09-03 16:50 | General Surgery Progress Note ---
General Surgery-Progress Note Subjective Additional Comments no acute events. stable. still with pain. MRI noted Objective Last 24 Hour Vital Signs Date Time Temp Pulse Resp B/P (MAP) Pulse Ox O2 Delivery O2 Flow Rate FiO2 09/03/18 16:00 98.4 62 21 138/74 (95) 98 09/03/18 12:00 98.2 64 18 152/86 (108) 64 09/03/18 09:02 64 16 95 Room Air 21 09/03/18 09:02 64 16 95 Room Air 21 09/03/18 09:00 Room Air 09/03/18 04:00 98.0 69 20 125/68 (87) 96 09/03/18 00:00 97.3 63 20 139/72 (94) 96 09/02/18 23:02 97.7 09/02/18 21:00 Room Air 09/02/18 20:00 97.7 59 20 123/77 (92) 95 I&O Intake and Output 09/02/18 09/03/18 18:59 06:59 Intake Total 420 ml 1450 ml Output Total 1100 ml Balance 420 ml 350 ml Intake Oral 420 ml 600 ml IV Total 250 ml Other 600 ml Output Urine Total 1100 ml # Voids 2 Dressing: saturated Wound: other Drains: other Cardiovascular: RSR Respiratory: clear Abdomen: soft, flat, non-tender, present bowel sounds Extremities: other Laboratory Tests Test 09/02/18 21:10 Vancomycin Level Trough 3.1 ug/mL (5.0-12.0) L Plan Problems: (1) Cellulitis of right leg Assessment & Plan: Patient presents with full thickness wound distal, lateral R lower extremity which is (L)1cm x(W)x (D)0.3cm Wound has punched like appearance Wound bed moist with 100% slough, marginal erythema Small amt non-odorous exudate noted. Hemosiderin noted to both lower ext. Seems like chronic venous stasis ulcer. no significant varicose veins noted but has had laser venous ablation in the past Common femoral artery waveform analysis is within normal limits at rest. Color flow duplex sonography reveals minimal calcification throughout the superficial femoral, and popliteal arteries. There is no evidence of stenosis or occlusion within these segments.The posterior tibial, anterior tibial and dorsalis pedis arteries are also minimally calcified. However, Doppler tibial artery waveform analysis is within normal limits bilaterally. Imaging reveals a patent deep venous system bilaterally. There is no evidence of thrombus within the femoral, popliteal or tibial segments. The greater saphenous veins are also within normal limits. Doppler indicates normal spontaneous flow within these segments. Xray reviewed and negative MRI noted Evidence of superficial soft tissue edema,Likely on the basis of cellulitis given stated clinical history No evidence of deep muscular infection or osteomyelitis. No evidence of drainable abscess. No evidence of soft tissue gas demonstrated. Tx.Plan: Wash wound with NS, apply therahoney or hydrogel, okay to use alginate, apply skin protectant, apply foam dressing daily and prn Keep lower extremity elevated Heel protectors standard wound care and decubitus ulcer protocol outpatient wound care scheduled with Dr. Paul for [facility] [place] outpatient care thank you. will follow with cyn Diaz to d/c from surgical standpoint Nikhil Jones Sep 03, 2018 16:50
[2018-09-03 20:14] VITALS: BP 145/79
[2018-09-03] MEDS ORDERED: NS 275ml ONE (20:14)
[2018-09-03] MEDS ORDERED: NS 500ML ONE (20:14)
[2018-09-03] MEDS ORDERED: Tubing IV Secondary IV ONE (20:14)
[2018-09-03] MEDS: PARoxetine 20mg tab ORAL SCH (20:41)
[2018-09-04 00:16] VITALS: BP 135/69
[2018-09-04] MEDS: Morphine Sulfate 4mg/ml Inj (IV/IM USE ONLY) IVP PRN ×3 (00:58→11:44)
[2018-09-04 04:00] VITALS: BP 120/74
[2018-09-04] MEDS: NovoLOG Insulin Flexpen SUBQ SCH ×2 (06:22→11:44)
--- NOTE | 2018-09-04 07:53 | Discharge Instructions ---
Discharge Instructions Discharge Instructions Activity: resume normal activities, no restrictions Follow Up Orders outpatient wound care scheduled with Dr. Paul for [facility] [place] outpatient care pcp f/u For Surgical Patients May shower: Yes For Congestive Heart Failure Reminder Report to your physician if wound starts draining pus, pain worsens, have fevers or chills Jenae Cordoba MD Sep 04, 2018 07:53
[2018-09-04] MEDS ORDERED: AUGMENTIN 875-1 EAC1 ORAL (07:58)
[2018-09-04 08:00] VITALS: BP 145/98
--- NOTE | 2018-09-04 08:03 | Discharge Summary ---
Discharge Summary Hospital Course Date of Admission Aug 30, 2018 at 21:43 Date of Discharge 09/04/18 Admitting Diagnosis Right Lower Extremity Cellulitis MARCELINO Rebolledo is a 67 year old male who was admitted on Aug 30, 2018 at 21:43 for Right Lower Extremity Cellulitis Hospital Course 67 yo male with h/o HIV, DM, HTN presents with complainst of pain of his right LE. states he has an ulcer of the right leg for 1 month and has been getting worse. States pain is 8/10, throbbing in nature, nonradiating. Denies any fevers /chills, no nausea/vomiting. States he is compliant with his medications at home. wound right corbin, punched out lesion. surgery consulted for wound care along with ID for abx management. XR and MRI were done, no OM noted, concerns for cellulutis vasc us completed, no vasc occlusions noted patient is a known vasculopath, has had vascular ligation in the past. wound healing well per surgery patient can be dc home and f/u outpt with woundcare patient is aware of plan and will dc home wound healing well now stable Physical Exam: General Appearance: WD/WN, no apparent distress, alert EENT: PERRL/EOMI, normal ENT inspection, TMs normal, pharynx normal Neck: non-tender, normal alignment, supple Cardiovascular: normal peripheral pulses, normal rate, regular rhythm Respiratory/Chest: chest wall non-tender, lungs clear, normal breath sounds Abdomen: normal bowel sounds, non tender, soft, no organomegaly, no mass Extremities: normal range of motion, other - right corbin punched out ulcer, well healing Neurologic: upper cutter out II-XII grossly normal, no motor/sensory deficits, alert, oriented x 3, responsive, normal mood/affect Skin: normal pigmentation, warm/dry I have spent spend over 40 minutes regarding patient care, discharge dispo and counseling and over 21 minutes of face to face time with the patient f/u outpatient wound care scheduled [place] Paul [place] [facility] [place] [facility] [place] with pcp [place] 1 week Discharge Medications New Medications: Amoxicillin/Potassium Clav 875-125* (Augmentin 875-125 Tablet*) 1 Each Tablet 1 TAB ORAL TWICE A DAY, #14 TAB Continued Medications: Acyclovir (Zovirax) 30 Gm Oint...g. 1 APPLIC TOPIC, APPLIC (This prescription has been renewed) Acyclovir (Zovirax) 30 Gm Oint...g. 1 APPLIC TOPIC PRN, APPLIC (This prescription has been renewed) Albuterol Sulfate* (Proair Hfa*) 8.5 Gm Hfa.aer.ad 2 PUFFS INH Q6H, #8.5 GM 0 Refills Aspirin (Aspirin) 81 Mg Tab.chew 81 MG PO DAILY, TAB (This prescription has been renewed) Bysto (Bystolic) 10 Mg Tab 10 MG PO BID (This prescription has been renewed) Cimetidine (Cimetidine) 800 Mg Tablet 1600 MG ORAL BEDTIME, #30 TAB 0 Refills Desvenlafaxine Succinate (Pristiq Er) 50 Mg Tab.er.24h 50 MG PO DAILY (This prescription has been renewed) Diphenhydramine Hcl (Diphenhydramine Hcl) 50 Mg Capsule 50 MG ORAL BEDTIME PRN for Itching, #30 CAP 0 Refills (This prescription has been renewed) Dolutegravir Sodium (Tivicay) 50 Mg Tablet 50 MG ORAL DAILY, TAB (This prescription has been renewed) Econazole Nitrate (Econazole Nitrate) 30 Gm Cream..g. 30 GM TP PRN, GM (This prescription has been renewed) Etravirine (Intelence) 200 Mg Tablet PO BID, #60 Fenofibrate,Micronized (Fenofibrate) 130 Mg Capsule DAILY, #30 Finasteride (Finasteride) 5 Mg Tablet DAILY, #30 Furosemide* (Lasix*) 20 Mg Tablet 20 MG ORAL DAILY, TAB (This prescription has been renewed) Gabapentin* (Gabapentin*) 300 Mg Capsule 300 MG PO TID (This prescription has been renewed) Insulin Detemir (Levemir) 100 Units/Ml Pen 30 UNITS SQ DAILY, #15 Levothyroxine Sodium (Synthroid) 50 Mcg Tab 50 MCG ORAL DAILY, TAB (This prescription has been renewed) Maraviroc* (Selzentry*) 150 Mg Tablet 600 MG ORAL EVERY 12 HOURS, TAB Metformin Hcl* (Glucophage*) 500 Mg Tablet 1000 MG ORAL TWICE A DAY, TAB (This prescription has been renewed) Montelukast Sodium* (Montelukast Sodium*) 10 Mg Tablet DAILY, #30 Niacin (Niacin) 500 Mg Capsule.er 500 MG PO DAILY, CAP (This prescription has been renewed) Olmesartan Medoxomil (Benicar) 20 Mg Tablet 20 MG ORAL DAILY, TAB (This prescription has been renewed) Paroxetine Hcl* (Paxil*) 20 Mg Tablet 20 MG PO DAILY (This prescription has been renewed) Pitavastatin Calcium (Livalo) 4 Mg Tablet 4 MG PO HS, TAB Ranitidine Hcl* (Zantac*) 150 Mg Tablet 150 MG ORAL DAILY, #30 TAB 0 Refills (This prescription has been renewed) Rivaroxaban (Xarelto*) 10 Mg Tablet 10 MG PO DAILY (This prescription has been renewed) Sucralfate* (Carafate*) 1 Gm Tablet 1 GM ORAL FIVE TIMES A DAY (This prescription has been renewed) Tiotropium [place]* (Spiriva*) 18 Mcg Cap.w.dev DAILY, #30 Valsartan (Diovan) 80 Mg Tab 80 MG ORAL DAILY, TAB Discontinued Medications: Clindamycin Hcl (Clindamycin Hcl) 300 Mg Capsule 300 MG ORAL FOUR TIMES A DAY for 7 Days, CAP Hydrocodone Bit/Acetaminophen 5-325* ([place] 5-325*) 1 Each Tablet 1 TAB ORAL Q6H PRN for For Pain, #10 TAB 0 Refills Hydrocodone/Acetaminophen 7.5-325* (Hydrocodon-Acetaminoph 7.5-325*) 1 Each Tablet 1 EACH PO q6h prn Levothyroxine Sodium* (Levothyroxine Sodium*) 50 Mcg Tablet ACBREAKFAST, #30 Lorazepam* (Lorazepam*) 1 Mg Tablet 1 MG PO q8h prn Discharge Condition Upon Discharge: stable Discharge Disposition Patient was discharged to Discharge Diagnoses: (1) HIV (human immunodeficiency virus infection) (2) COPD (chronic obstructive pulmonary disease) (3) Hypertension (4) Cellulitis of right leg (5) Ulcer of right leg (6) Diabetes (7) Status asthmaticus (8) Cardiomegaly (9) AIDS (10) Bronchial asthma (11) Depression (12) Hypercholesteremia (13) Hypothyroidism Discharge Instructions Discharge Instructions Activity: resume normal activities, no restrictions For Surgical Patients May shower: Yes Jenae Cordoba MD Sep 04, 2018 08:03
[2018-09-04] MEDS: DESCOVY ORAL SCH (08:45)
[2018-09-04] MEDS: Patient's Own Med - Tivicay 50mg ORAL SCH (08:45)
[2018-09-04] MEDS: Montelukast 10mg tablet ORAL SCH (08:46)
[2018-09-04] MEDS: Docusate 100mg cap ORAL SCH (08:46)
[2018-09-04] MEDS: Heparin 5000 units/ml inj SUBQ SCH (08:47)
[2018-09-04 09:31] LABS: HEMATOCRIT 42.3 % (42.0-52.0); HEMOGLOBIN 14.7 G/DL (14.2-18.0); MEAN CORPUSCULAR VOLUME 91 FL (80-99); PLATELET COUNT 140 K/UL (150-450); RED BLOOD COUNT 4.67 M/UL (4.70-6.10); RED CELL DISTRIBUTION WIDTH 10.9 % (11.6-14.8); WHITE BLOOD COUNT 3.3 K/UL (4.8-10.8)
[2018-09-04 09:43] LABS: ANION GAP 9 mmol/L (5-15); BLOOD UREA NITROGEN 21 mg/dL (7-18); CALCIUM 8.7 MG/DL (8.5-10.1); CARBON DIOXIDE 27 MMOL/L (21-32); CHLORIDE 101 MMOL/L (98-107); CREATININE 1.2 MG/DL (0.55-1.30); POTASSIUM 4.6 MMOL/L (3.5-5.1); SODIUM 137 MMOL/L (136-145)
[2018-09-04] MEDS: Vancomycin 1500mg IVPB SCH (10:39)
[2018-09-04 11:57] VITALS: BP 134/65
== END 2018-09-04 13:03 | disposition home or self-care (01) | DRG 603 ==
LOC: EMR 20:49 → 4E 21:43 → EDBEDREQ 21:47
DX: L03.115 Cellulitis of right lower limb (principal); B20 Human immunodeficiency virus [HIV] disease; L97.919 Non-pressure chronic ulcer of unspecified part of right lower leg with unspecified severity; J45.902 Unspecified asthma with status asthmaticus; J44.9 Chronic obstructive pulmonary disease, unspecified; I10 Essential (primary) hypertension; E11.9 Type 2 diabetes mellitus without complications; I51.7 Cardiomegaly; F32.9 Major depressive disorder, single episode, unspecified; E78.00 Pure hypercholesterolemia, unspecified; E03.9 Hypothyroidism, unspecified; Z88.6 Allergy status to analgesic agent; Z88.2 Allergy status to sulfonamides; Z88.8 Allergy status to other drugs, medicaments and biological substances; Z79.4 Long term (current) use of insulin; F41.9 Anxiety disorder, unspecified
CPT/HCPCS: 36415; 80048; 80053; 80202; 81003; 82962; 83605; 83735; 85007; 85025; 85651; 86140; 87040; 87070; 87181; 87205; 93925; 93970; 93971; 94640; 94664; 96365; 96366; 99285; J1815; J2405

== ENCOUNTER 2018-09-14 14:03 | Outpatient (RCR) | payer MEDICARE, MEDICAID ==
[~2018-09-14] VITALS: Ht 170.2 cm; Wt 104.3 kg
[~2018-09-14 14:03] MED LIST changes: +ASPIRIN81 M3 PO; +AUGMENTIN 875-1 EAC1 ORAL; +BENICAR20 MG ORAL; +DIPHENHYDRAMINE50 M1 ORAL; +ECONAZOLE NITRA30 GM TP; +FUROSEMIDE20 M1 ORAL; +NIACIN500 M3 PO; +TIVICAY50 MG ORAL; +ZANTAC150 MG ORAL; +ZOVIRAX OINT1 APPLI1 TOPIC
== END 2018-10-04 | disposition home or self-care (01) ==
LOC: WCC 14:03
DX: L97.822 Non-pressure chronic ulcer of other part of left lower leg with fat layer exposed (principal); I87.2 Venous insufficiency (chronic) (peripheral); E11.42 Type 2 diabetes mellitus with diabetic polyneuropathy; B20 Human immunodeficiency virus [HIV] disease; E11.9 Type 2 diabetes mellitus without complications; I10 Essential (primary) hypertension; J44.9 Chronic obstructive pulmonary disease, unspecified; Z88.8 Allergy status to other drugs, medicaments and biological substances; Z79.82 Long term (current) use of aspirin; Z79.01 Long term (current) use of anticoagulants
CPT/HCPCS: 11042; 29580; 87070; 87181; 87205

== ENCOUNTER 2018-10-11 10:56 | Outpatient (RCR) | payer MEDICARE, MEDICAID | END 2018-11-04 | disposition home or self-care (01) | LOC: WCC 10:56 | DX: L97.812 Non-pressure chronic ulcer of other part of right lower leg with fat layer exposed (principal); E11.622 Type 2 diabetes mellitus with other skin ulcer; I87.2 Venous insufficiency (chronic) (peripheral); B20 Human immunodeficiency virus [HIV] disease; J44.9 Chronic obstructive pulmonary disease, unspecified; E11.9 Type 2 diabetes mellitus without complications; I10 Essential (primary) hypertension; Z85.72 Personal history of non-Hodgkin lymphomas | CPT/HCPCS: 11042; 15271; 29580; Q4133 ==

== ENCOUNTER 2018-11-10 14:15 | Outpatient (RCR) | payer MEDICARE, MEDICAID | END 2018-12-02 | disposition home or self-care (01) | LOC: WCC 14:15 | DX: L97.812 Non-pressure chronic ulcer of other part of right lower leg with fat layer exposed (principal); E11.622 Type 2 diabetes mellitus with other skin ulcer; I87.2 Venous insufficiency (chronic) (peripheral); B20 Human immunodeficiency virus [HIV] disease; Z88.8 Allergy status to other drugs, medicaments and biological substances; Z85.72 Personal history of non-Hodgkin lymphomas; J44.9 Chronic obstructive pulmonary disease, unspecified; E11.9 Type 2 diabetes mellitus without complications; I10 Essential (primary) hypertension | CPT/HCPCS: 29580; G0463 ==

== ENCOUNTER 2019-01-26 15:00 | Emergency (ER) | payer MEDICARE, MEDICAID ==
[~2019-01-26] VITALS: Ht 170.2 cm; Wt 104.3 kg
--- NOTE | 2019-01-26 15:11 | NUR ---
ED Nurse Note: Pt came into the ER w/ complaints of left middle finger pain s/p being bitten by a dog x 1 week ago. Swelling and redness noted in the area. Pt is complaining of 9/10 pain in the area. Non radiating. Pt has a hx of HIV. Pt is A +O x4. Ambulatory. Skin warm to touch.
[2019-01-26 15:12] VITALS: BP 133/67
[2019-01-26] MEDS ORDERED: Tetanus/Diptheria/Pertussis IM ONE (15:30)
--- NOTE | 2019-01-26 15:46 | Emergency Room Report ---
History of Present Illness General Chief Complaint: Animal Bite Source: Patient Present Illness HPI Pt. presents to the ED c/o dog bite 1 week ago, tetanus not up to date, rabies on animal is UTD. Reports increased pain 9/10 in severity. reports erythema. He denies fevers or chills. He denies pain on the palmar aspect of the finger/ hand. pt. reports hx of immune compromise. Pt. denies bony tenderness or pain. Denies paresthesias. Denies loss of gross motor movements of the affected extremity. Allergies: Coded Allergies: ABACAVIR (Verified Allergy, Unknown, 01/26/19) DIDANOSINE (Verified Allergy, Unknown, 01/26/19) EFAVIRENZ (Verified Allergy, Unknown, 01/26/19) FOSAMPRENAVIR (Verified Allergy, Unknown, 01/26/19) INDINAVIR (Verified Allergy, Unknown, 01/26/19) SULFAMETHOXAZOLE (Verified Allergy, Unknown, 01/26/19) TRIMETHOPRIM (Verified Allergy, Unknown, 01/29/09) HYDROMORPHONE (Verified Adverse Reaction, Unknown, VOMITS, 06/12/12) Patient History Past Medical History: see triage record, old chart reviewed Past Surgical History: none Pertinent Family History: none Reviewed Nursing Documentation: PMH: Agreed; PSxH: Agreed Nursing Documentation-PMH Past Medical History: No History, Except For Hx Hypertension: Yes Hx Pacemaker: No - HIV positive Hx Asthma: Yes Hx COPD: Yes Hx Diabetes: Yes Hx Cancer: Yes - [place] Hx Gastrointestinal Problems: Yes Hx Neurological Problems: No Hx Dizziness: Yes Review of Systems All Other Systems: negative except mentioned in HPI Physical Exam Vital Signs Date Time Temp Pulse Resp B/P (MAP) Pulse Ox O2 Delivery O2 Flow Rate FiO2 01/26/19 15:04 98.2 80 16 134/69 95 Room Air Sp02 EP Interpretation: reviewed, normal General Appearance: no apparent distress, alert, GCS 15, non-toxic Head: normocephalic, atraumatic Eyes: bilateral eye normal inspection, bilateral eye PERRL ENT: hearing grossly normal, normal voice Neck: full range of motion Respiratory: chest non-tender, lungs clear, normal breath sounds, speaking full sentences Cardiovascular #1: regular rate, rhythm, no edema Gastrointestinal: normal bowel sounds, non tender, soft Rectal: deferred Genitourinary: normal inspection Musculoskeletal: back normal, gait/station normal, normal range of motion, inflammation - left index finger dorsum with erythema around healing laceration 2 cm Neurologic: alert, oriented x3, responsive, motor strength/tone normal, sensory intact, speech normal, grossly normal Psychiatric: judgement/insight normal Skin: normal color, no rash, warm/dry, well hydrated Lymphatic: no adenopathy Medical Decision Making PA Attestation Dr. Chin is my supervising Physician whom patient management has been discussed with. Diagnostic Impression: Primary Impression: Dog bite of finger Qualified Codes: S61.259A - Open bite of unspecified finger without damage to nail, initial encounter; W54.0XXA - Bitten by dog, initial encounter Additional Impression: CELLULITIS OF LEFT FINGER ER Course Pt. presents to the ED c/o dog bite 1 week ago, tetanus not up to date, rabies on animal is UTD. Reports increased pain 9/10 in severity. reports erythema. He denies fevers or chills. He denies pain on the palmar aspect of the finger/ hand. pt. reports hx of immune compromise. Pt. denies bony tenderness or pain. Denies paresthesias. Denies loss of gross motor movements of the affected extremity. Ddx considered but are not limited to Cellulitis, rabies, fracture, neurovascular compromise of extremity. Vital signs: are WNL, pt. is afebrile H&PE are most consistent with dog bite, mild infection. ORDERS: none required at this time, the diagnosis is clinical ED INTERVENTIONS: Tetanus vaccination is administered. -Left index Splint applied by crystal growing technician. Pt. remains neurovascularly intact. DISCHARGE: At this time pt. is stable for d/c to home. Will provide printed patient care instructions, and any necessary prescriptions. Care plan and follow up instructions have been discussed with the patient prior to discharge. * Augmentin TID x 7 days. Last Vital Signs Date Time Temp Pulse Resp B/P (MAP) Pulse Ox O2 Delivery O2 Flow Rate FiO2 01/26/19 15:12 98.1 78 20 133/67 98 Room Air Disposition: HOME, SELF-CARE Condition: Stable Scripts Acetaminophen* (TYLENOL EXTRA STRENGTH*) 500 Mg Tablet 500 MG ORAL Q6H, #20 TAB 0 Refills Prov: Vivian Vernon 01/26/19 Mupirocin* (MUPIROCIN*) 22 Gm Oint...g. 1 APPLIC TOPIC THREE TIMES A DAY, #22 GM Prov: Vivian Vernon 01/26/19 Amoxicillin/Potassium Clav 875-125* (AUGMENTIN 875-125 TABLET*) 1 Each Tablet 1 TAB ORAL TWICE A DAY for 7 Days, #14 TAB Prov: Vivian Vernon 01/26/19 Patient Instructions: Animal Bite Additional Instructions: Take medications as directed. Follow up with a Primary Care Provider in 3-5 days, even if your symptoms have resolved. --Please review list of primary care clinics, if you do not already have a primary care provider Return sooner to ED if new symptoms occur, or current symptoms become worse. Do not drink alcohol, drive, or operate heavy machinery while taking Tylenol # 3 as this may cause drowsiness. - Please note that this Emergency Department Report was dictated using [employer] specialist technology software, occasionally this can lead to erroneous entry secondary to interpretation by the dictation equipment. Vivian Vernon Jan 26, 2019 15:46
[2019-01-26] MEDS ORDERED: AUGMENTIN 875-1 EAC1 ORAL (15:50)
[2019-01-26] MEDS ORDERED: TYLENOL EXTRA500 MG ORAL (15:50)
[2019-01-26] MEDS ORDERED: MUPIROCIN22 GM TOPIC (15:50)
[2019-01-26] MEDS ORDERED: Augmentin 875mg Tab ORAL ONE (16:00)
[2019-01-26 16:03] VITALS: BP 133/65
--- NOTE | 2019-01-26 16:04 | NUR ---
ER DISCHARGE NOTE: Patient is cleared to be discharged per ERMD, pt is aox4, on room air, with stable vital signs. pt was given dc and prescription instructions, pt was able to verbalize understanding, pt id band removed without complications. pt is able to ambulate with steady gait. pt took all belongings.
== END 2019-01-26 16:04 | disposition home or self-care (01) ==
LOC: EMR 15:45
DX: S61.251A Open bite of left index finger without damage to nail, initial encounter (principal); W54.0XXA Bitten by dog, initial encounter; L03.012 Cellulitis of left finger; Z23 Encounter for immunization; Z88.8 Allergy status to other drugs, medicaments and biological substances; Z88.2 Allergy status to sulfonamides; B20 Human immunodeficiency virus [HIV] disease; J44.9 Chronic obstructive pulmonary disease, unspecified; E11.9 Type 2 diabetes mellitus without complications; Z85.72 Personal history of non-Hodgkin lymphomas
CPT/HCPCS: 29130; 90471; 90715; 99283

== ENCOUNTER 2019-12-21 16:31 | Inpatient (IN) | payer MEDICARE, MEDICAID ==
[~2019-12-21] VITALS: Ht 170.2 cm; Wt 100.7 kg
[~2019-12-21 16:31] MED LIST changes: +MUPIROCIN22 GM TOPIC; +TYLENOL EXTRA500 MG ORAL
[2019-12-21] MEDS ORDERED: Acetaminophen 500mg (ES) tab ORAL ONE (17:30)
--- NOTE | 2019-12-21 17:50 | Emergency Room Report ---
History of Present Illness General Chief Complaint: Nausea, Vomiting, and Diarrhea Source: Patient Present Illness HPI Patient is a 69-year-old male past medical history of HIV, hypertension, COPD, diabetes, lymphoma who presents to the ER with multiple complaints. Patient states that his HIV is well controlled he is on antiretrovirals and that last month his CD4 count was around 500 600 and that his viral load is undetectable. Patient presents complaining of abdominal pain nausea vomiting for the past 3 days. He complains of upper abdominal pain with nonbilious nonbloody vomitus and nonbloody diarrhea. Patient also complains of fever and chills. He complains of generalized weakness.. He states that his blood glucose was less than 200 earlier today. Patient also complains of cough that is nonproductive with chest wall discomfort. He states that the chest wall discomfort is only present when coughing. He denies any recent travel or sick contacts. Patient denies any rash or neck stiffness. COVID-19 risk:Contact w/high r: No COVID-19 risk:Travel to affect: No Has patient experienced neely: No Allergies: Coded Allergies: ABACAVIR (Verified Allergy, Unknown, 01/26/19) DIDANOSINE (Verified Allergy, Unknown, 01/26/19) EFAVIRENZ (Verified Allergy, Unknown, 01/26/19) FOSAMPRENAVIR (Verified Allergy, Unknown, 01/26/19) INDINAVIR (Verified Allergy, Unknown, 01/26/19) SULFAMETHOXAZOLE (Verified Allergy, Unknown, 01/26/19) TRIMETHOPRIM (Verified Allergy, Unknown, 01/29/09) HYDROMORPHONE (Verified Adverse Reaction, Unknown, VOMITS, 06/12/12) Nursing Documentation-PMH Hx Hypertension: Yes Hx Pacemaker: No - HIV positive Hx Asthma: Yes Hx COPD: Yes Hx Diabetes: Yes Hx Cancer: Yes - LYMPHOMA Hx Gastrointestinal Problems: Yes Hx Neurological Problems: No Hx Dizziness: Yes Review of Systems All Other Systems: negative except mentioned in HPI Physical Exam Vital Signs Date Time Temp Pulse Resp B/P (MAP) Pulse Ox O2 Delivery O2 Flow Rate FiO2 12/21/19 17:11 101.7 110 18 118/76 (90) 94 Room Air Sp02 EP Interpretation: reviewed, normal - LOW NORMAL General Appearance: alert, GCS 15, non-toxic, mild distress Head: normocephalic, atraumatic Eyes: bilateral eye normal inspection, bilateral eye PERRL ENT: hearing grossly normal, no angioedema, normal voice, dry mucus membranes Neck: full range of motion, supple/symm/no masses Respiratory: chest non-tender, speaking full sentences, other - RLL rhonchi Cardiovascular #1: no edema, tachycardia Gastrointestinal: normal bowel sounds, soft, no guarding, no rebound, other - Distended abdomen with diffuse tenderness maximal in the epigastric and right upper quadrant area Rectal: deferred Genitourinary: normal inspection, no CVA tenderness Musculoskeletal: back normal, normal range of motion, calf tenderness, gait/ station normal, non-tender Neurologic: alert, motor strength/tone normal, oriented x3, sensory intact, responsive, speech normal Psychiatric: judgement/insight normal, memory normal, mood/affect normal, no suicidal/homicidal ideation Skin: no rash Lymphatic: no adenopathy Procedures Critical Care Time Critical Care Time Total critical care time: Approximately 40 minutes. Due to a high probability of clinically significant, life threatening deterioration, the patient required my highest level of preparedness to intervene emergently and I personally spent this critical care time directly and personally managing the patient. This critical care time included obtaining a history; examining the patient; pulse oximetry; ordering and review of studies; arranging urgent treatment with development of a management plan; evaluation of patient's response to treatment ; frequent reassessment; and, discussions with other providers.This critical care time was performed to assess and manage the high probability of imminent, life-threatening deterioration that could result in multi-organ failure. It was exclusive of separately billable procedures and treating other patients and teaching time. Please see MDM section and the rest of the note for further information on patient assessment and treatment. Medical Decision Making Diagnostic Impression: Primary Impression: Sepsis Additional Impressions: Transaminitis Pneumonia Diverticulosis ER Course Patient pancultured. Patient started on broad-spectrum antibiotics for bronchopneumonia.Covid-19 testing ordered and is pending. Patient symptomatically improved after Zofran and Pepcid. Patient also given IV fluids. Laboratory Tests Test 12/21/19 18:20 12/21/19 19:00 12/21/19 21:06 Prothrombin Time 11.4 SEC (9.30-11.50) Prothrombin Time INR 1.1 (0.9-1.1) Activated Partial Thromboplast Time 23 SEC (23-33) Urine Color Yellow Urine Appearance Clear Urine pH 5 (4.5-8.0) Urine Specific [place] 1.025 (1.005-1.035) Urine Protein 2+ (NEGATIVE) H Urine Glucose (UA) Negative (NEGATIVE) Urine Ketones 1+ (NEGATIVE) H Urine Blood 3+ (NEGATIVE) H Urine Nitrite Negative (NEGATIVE) Urine Bilirubin Negative (NEGATIVE) Urine Urobilinogen Normal MG/DL (0.0-1.0) Urine Leukocyte Esterase Negative (NEGATIVE) Urine RBC 2-4 /HPF (0 - 0) H Urine WBC 0-2 /HPF (0 - 0) Urine Squamous Epithelial Cells None /LPF (NONE/OCC) Urine Bacteria Few /HPF (NONE) Sodium Level 137 MMOL/L (136-145) Potassium Level 4.7 MMOL/L (3.5-5.1) Chloride Level 99 MMOL/L (98-107) Carbon Dioxide Level 24 MMOL/L (21-32) Anion Gap 14 mmol/L (5-15) Blood Urea Nitrogen 51 mg/dL (7-18) H Creatinine 2.2 MG/DL (0.55-1.30) H Estimated Glomerular Filtration Rate 30.0 mL/min (>60) Glucose Level 182 MG/DL (74-106) H Calcium Level 8.3 MG/DL (8.5-10.1) L Magnesium Level 1.9 MG/DL (1.8-2.4) Total Bilirubin 0.6 MG/DL (0.2-1.0) Aspartate Amino Transferase (AST) 123 U/L (15-37) H Alanine Aminotransferase (ALT) 132 U/L (12-78) H Alkaline Phosphatase 50 U/L (46-116) Troponin I 0.000 ng/mL (0.000-0.056) Pro-B-Type Natriuretic Peptide 128 pg/mL (0-125) H Total Protein 8.4 G/DL (6.4-8.2) H Albumin 4.4 G/DL (3.4-5.0) Globulin 4.0 g/dL Albumin/Globulin Ratio 1.1 (1.0-2.7) Lipase 79 U/L (73-393) Acetone Level Negative (NEGATIVE) White Blood Count 12.9 K/UL (4.8-10.8) H Red Blood Count 5.37 M/UL (4.70-6.10) Hemoglobin 16.7 G/DL (14.2-18.0) Hematocrit 50.1 % (42.0-52.0) Mean Corpuscular Volume 93 FL (80-99) Mean Corpuscular Hemoglobin 31.2 PG (27.0-31.0) H Mean Corpuscular Hemoglobin Concent 33.3 G/DL (32.0-36.0) Red Cell Distribution Width 12.4 % (11.6-14.8) Platelet Count 141 K/UL (150-450) L Mean Platelet Volume 7.8 FL (6.5-10.1) Neutrophils (%) (Auto) 84.8 % (45.0-75.0) H Lymphocytes (%) (Auto) 8.8 % (20.0-45.0) L Monocytes (%) (Auto) 5.9 % (1.0-10.0) Eosinophils (%) (Auto) 0.0 % (0.0-3.0) Basophils (%) (Auto) 0.5 % (0.0-2.0) Lactic Acid Level 2.90 mmol/L (0.4-2.0) H Venous Blood pH 7.33 Venous Blood Partial Pressure CO2 42.4 Venous Blood Partial Pressure O2 38.9 Venous Blood HCO3 21.9 Venous Blood Total Carbon Dioxide 42.4 Venous Blood Base Excess -3.9 Venous Blood Carboxyhemoglobin 0.9 % (0.5-1.5) Methemoglobin 0.6 Microbiology Date/Time Source Procedure Growth Status 12/21/19 19:00 Nasal Nares - Final Complete 12/21/19 19:00 Nasal Nares - Final Complete EKG Diagnostic Results EKG Time: 17:46 EP Interpretation: MD Pilar Rate: tachycardiac Rhythm: other - sinus tachycardia ST Segments: no acute changes ASA given to the pt in ED: No Last Vital Signs Date Time Temp Pulse Resp B/P (MAP) Pulse Ox O2 Delivery O2 Flow Rate FiO2 12/21/19 17:11 101.7 110 18 118/76 (90) 94 Room Air Disposition: ADMITTED INPATIENT Condition: Critical Physician Consult: Dr. Lackey to admit to Medical Floor Sepsis Event Note Evaluation Current Stage of Sepsis: Severe Sepsis Focused Exam Allergies: Coded Allergies: ABACAVIR (Verified Allergy, Unknown, 01/26/19) DIDANOSINE (Verified Allergy, Unknown, 01/26/19) EFAVIRENZ (Verified Allergy, Unknown, 01/26/19) FOSAMPRENAVIR (Verified Allergy, Unknown, 01/26/19) INDINAVIR (Verified Allergy, Unknown, 01/26/19) SULFAMETHOXAZOLE (Verified Allergy, Unknown, 01/26/19) TRIMETHOPRIM (Verified Allergy, Unknown, 01/29/09) HYDROMORPHONE (Verified Adverse Reaction, Unknown, VOMITS, 06/12/12) Date Exam Occurred: Dec 21, 2019 Time Exam Occurred: 18:30 Laboratory Studies Laboratory Tests Test 12/21/19 18:20 12/21/19 19:00 12/21/19 21:06 Prothrombin Time 11.4 SEC (9.30-11.50) Prothromb Time International Ratio 1.1 (0.9-1.1) Activated Partial Thromboplast Time 23 SEC (23-33) Urine Color Yellow Urine Appearance Clear Urine pH 5 (4.5-8.0) Urine Specific [place] 1.025 (1.005-1.035) Urine Protein 2+ (NEGATIVE) H Urine Glucose (UA) Negative (NEGATIVE) Urine Ketones 1+ (NEGATIVE) H Urine Blood 3+ (NEGATIVE) H Urine Nitrite Negative (NEGATIVE) Urine Bilirubin Negative (NEGATIVE) Urine Urobilinogen Normal MG/DL (0.0-1.0) Urine Leukocyte Esterase Negative (NEGATIVE) Urine RBC 2-4 /HPF (0 - 0) H Urine WBC 0-2 /HPF (0 - 0) Urine Squamous Epithelial Cells None /LPF (NONE/OCC) Urine Bacteria Few /HPF (NONE) Sodium Level 137 MMOL/L (136-145) Potassium Level 4.7 MMOL/L (3.5-5.1) Chloride Level 99 MMOL/L (98-107) Carbon Dioxide Level 24 MMOL/L (21-32) Anion Gap 14 mmol/L (5-15) Blood Urea Nitrogen 51 mg/dL (7-18) H Creatinine 2.2 MG/DL (0.55-1.30) H Estimat Glomerular Filtration Rate 30.0 mL/min (>60) Glucose Level 182 MG/DL (74-106) H Calcium Level 8.3 MG/DL (8.5-10.1) L Magnesium Level 1.9 MG/DL (1.8-2.4) Total Bilirubin 0.6 MG/DL (0.2-1.0) Aspartate Amino Transf (AST/SGOT) 123 U/L (15-37) H Alanine Aminotransferase (ALT/SGPT) 132 U/L (12-78) H Alkaline Phosphatase 50 U/L (46-116) Troponin I 0.000 ng/mL (0.000-0.056) Pro-B-Type Natriuretic Peptide 128 pg/mL (0-125) H Total Protein 8.4 G/DL (6.4-8.2) H Albumin 4.4 G/DL (3.4-5.0) Globulin 4.0 g/dL Albumin/Globulin Ratio 1.1 (1.0-2.7) Lipase 79 U/L (73-393) Acetone Level Negative (NEGATIVE) White Blood Count 12.9 K/UL (4.8-10.8) H Red Blood Count 5.37 M/UL (4.70-6.10) Hemoglobin 16.7 G/DL (14.2-18.0) Hematocrit 50.1 % (42.0-52.0) Mean Corpuscular Volume 93 FL (80-99) Mean Corpuscular Hemoglobin 31.2 PG (27.0-31.0) H Mean Corpuscular Hemoglobin Concent 33.3 G/DL (32.0-36.0) Red Cell Distribution Width 12.4 % (11.6-14.8) Platelet Count 141 K/UL (150-450) L Mean Platelet Volume 7.8 FL (6.5-10.1) Neutrophils (%) (Auto) 84.8 % (45.0-75.0) H Lymphocytes (%) (Auto) 8.8 % (20.0-45.0) L Monocytes (%) (Auto) 5.9 % (1.0-10.0) Eosinophils (%) (Auto) 0.0 % (0.0-3.0) Basophils (%) (Auto) 0.5 % (0.0-2.0) Lactic Acid Level 2.90 mmol/L (0.4-2.0) H Venous Blood pH 7.33 Venous Blood Partial Pressure CO2 42.4 Venous Blood Partial Pressure O2 38.9 Venous Blood HCO3 21.9 Venous Blood Total Carbon Dioxide 42.4 Venous Blood Base Excess -3.9 Venous Blood Carboxyhemoglobin 0.9 % (0.5-1.5) Methemoglobin 0.6 Vital Signs Laboratory Tests Test 12/21/19 18:20 12/21/19 19:00 12/21/19 21:06 Prothrombin Time 11.4 SEC (9.30-11.50) Prothrombin Time INR 1.1 (0.9-1.1) Activated Partial Thromboplast Time 23 SEC (23-33) Urine Color Yellow Urine Appearance Clear Urine pH 5 (4.5-8.0) Urine Specific [place] 1.025 (1.005-1.035) Urine Protein 2+ (NEGATIVE) H Urine Glucose (UA) Negative (NEGATIVE) Urine Ketones 1+ (NEGATIVE) H Urine Blood 3+ (NEGATIVE) H Urine Nitrite Negative (NEGATIVE) Urine Bilirubin Negative (NEGATIVE) Urine Urobilinogen Normal MG/DL (0.0-1.0) Urine Leukocyte Esterase Negative (NEGATIVE) Urine RBC 2-4 /HPF (0 - 0) H Urine WBC 0-2 /HPF (0 - 0) Urine Squamous Epithelial Cells None /LPF (NONE/OCC) Urine Bacteria Few /HPF (NONE) Sodium Level 137 MMOL/L (136-145) Potassium Level 4.7 MMOL/L (3.5-5.1) Chloride Level 99 MMOL/L (98-107) Carbon Dioxide Level 24 MMOL/L (21-32) Anion Gap 14 mmol/L (5-15) Blood Urea Nitrogen 51 mg/dL (7-18) H Creatinine 2.2 MG/DL (0.55-1.30) H Estimated Glomerular Filtration Rate 30.0 mL/min (>60) Glucose Level 182 MG/DL (74-106) H Calcium Level 8.3 MG/DL (8.5-10.1) L Magnesium Level 1.9 MG/DL (1.8-2.4) Total Bilirubin 0.6 MG/DL (0.2-1.0) Aspartate Amino Transferase (AST) 123 U/L (15-37) H Alanine Aminotransferase (ALT) 132 U/L (12-78) H Alkaline Phosphatase 50 U/L (46-116) Troponin I 0.000 ng/mL (0.000-0.056) Pro-B-Type Natriuretic Peptide 128 pg/mL (0-125) H Total Protein 8.4 G/DL (6.4-8.2) H Albumin 4.4 G/DL (3.4-5.0) Globulin 4.0 g/dL Albumin/Globulin Ratio 1.1 (1.0-2.7) Lipase 79 U/L (73-393) Acetone Level Negative (NEGATIVE) White Blood Count 12.9 K/UL (4.8-10.8) H Red Blood Count 5.37 M/UL (4.70-6.10) Hemoglobin 16.7 G/DL (14.2-18.0) Hematocrit 50.1 % (42.0-52.0) Mean Corpuscular Volume 93 FL (80-99) Mean Corpuscular Hemoglobin 31.2 PG (27.0-31.0) H Mean Corpuscular Hemoglobin Concent 33.3 G/DL (32.0-36.0) Red Cell Distribution Width 12.4 % (11.6-14.8) Platelet Count 141 K/UL (150-450) L Mean Platelet Volume 7.8 FL (6.5-10.1) Neutrophils (%) (Auto) 84.8 % (45.0-75.0) H Lymphocytes (%) (Auto) 8.8 % (20.0-45.0) L Monocytes (%) (Auto) 5.9 % (1.0-10.0) Eosinophils (%) (Auto) 0.0 % (0.0-3.0) Basophils (%) (Auto) 0.5 % (0.0-2.0) Lactic Acid Level 2.90 mmol/L (0.4-2.0) H Venous Blood pH 7.33 Venous Blood Partial Pressure CO2 42.4 Venous Blood Partial Pressure O2 38.9 Venous Blood HCO3 21.9 Venous Blood Total Carbon Dioxide 42.4 Venous Blood Base Excess -3.9 Venous Blood Carboxyhemoglobin 0.9 % (0.5-1.5) Methemoglobin 0.6 Microbiology Date/Time Source Procedure Growth Status 12/21/19 19:00 Nasal Nares - Final Complete 12/21/19 19:00 Nasal Nares - Final Complete Last 24 Hour Vital Signs Date Time Temp Pulse Resp B/P (MAP) Pulse Ox O2 Delivery O2 Flow Rate FiO2 12/21/19 18:39 101.7 98 19 116/88 98 Room Air 12/21/19 17:11 101.7 110 18 118/76 (90) 94 Room Air Respiratory Exam: Rhonchi - R lower lobe Cardiovascular Exam: RRR Capillary Refill: Less Than 2 Seconds Peripheral Pulse: Valerie Elena M.D. Dec 21, 2019 17:50
--- NOTE | 2019-12-21 18:20 | NUR ---
ED Nurse Note: Received pt from [facility]. report given by Dalila SETH.
--- NOTE | 2019-12-21 18:36 | Diagnostic Imaging Report ---
INDICATION: Abdominal pain TECHNIQUE: Continuous helical transaxial imaging of the abdomen and pelvis was obtained from the lung bases to the pubic symphysis. No intravenous contrast was administered. Coronal 2-D reformats were also obtained. Automatic Exposure Control was utilized. Total Dose length Product (DLP): 763.[address] Dose Index Volume (CTDIvol): 14.3 mGy Comparison: 01/11/2013 FINDINGS: Lungs: There is some fibrosis present with the reticular densities involving the visualized lung bases. There is some mild honeycombing and traction bronchiectasis noted.. Liver: Diffusely hypodense consistent with fatty infiltration Gallbladder/biliary system: Gallbladder is absent. There is no biliary ductal dilatation.. Spleen: Unremarkable Pancreas: Unremarkable Kidneys/Bladder: No definite stone or hydronephrosis are identified. The urinary bladder is unremarkable.. Adrenal glands: Unremarkable Bowel: Few diverticula are noted in the colon. Appendix is normal. There is no evidence of bowel obstruction. Aorta/IVC: Mild calcification of the aorta and iliac arteries are demonstrated. Peritoneum: There is no free fluid. Bones: Mild degenerative changes are present within the thoracic and lumbar spine. Right total hip arthroplasty demonstrated. Left dynamic hip screw noted. IMPRESSION: Fatty liver. Fibrosis at the lung bases Status post cholecystectomy. Mild diverticulosis of the colon. No definite diverticulitis. Other incidental findings as above Note: Evaluation of solid organs is limited on non contrast imaging. [facility] has communicated the preliminary results to the Emergency Department. Their findings are largely concordant with this report. The CT scanner at [facility] is accredited by the [employer] [place] and the scans are performed using dose optimization techniques as appropriate to a performed exam including Automatic Exposure control.
--- NOTE | 2019-12-21 18:36 | NUR ---
ED Nurse Note: Pt walked into ED due to nausea and vomitingx3 days. Pt is alert and orientedx4, ambulatory. Pt denies body aches, chills. Pt denies traveling outside [place] in past month. Pt hs been seen by MD. Pt is sitting in bed.
[2019-12-21 18:39] VITALS: BP 116/88
[2019-12-21 18:55] LABS: APPEARANCE,URINE CLEAR; BILIRUBIN, URINE NEGATIVE (NEGATIVE); COLOR,URINE YELLOW; GLUCOSE, URINE (UA) NEGATIVE (NEGATIVE); KETONES,URINE 1+ (NEGATIVE); LEUKOCYTE ESTERASE ,URINE NEGATIVE (NEGATIVE); NITRITE,URINE NEGATIVE (NEGATIVE); PH,URINE 5 (4.5-8.0); PROTEIN,URINE 2+ (NEGATIVE); UROBILINOGEN,URINE NORMAL MG/DL (0.0-1.0)
[2019-12-21 19:04] LABS: ANION GAP 14 mmol/L (5-15); BLOOD UREA NITROGEN 51 mg/dL (7-18); CALCIUM 8.3 MG/DL (8.5-10.1); CARBON DIOXIDE 24 MMOL/L (21-32); CHLORIDE 99 MMOL/L (98-107); CREATININE 2.2 MG/DL (0.55-1.30); INR 1.1 (0.9-1.1); POTASSIUM 4.7 MMOL/L (3.5-5.1); SODIUM 137 MMOL/L (136-145)
[2019-12-21 19:13] LABS: BASOPHILS % (AUTO) 0.5 % (0.0-2.0); HEMATOCRIT 50.1 % (42.0-52.0); HEMOGLOBIN 16.7 G/DL (14.2-18.0); LYMPHOCYTES % (AUTO) 8.8 % (20.0-45.0); MEAN CORPUSCULAR VOLUME 93 FL (80-99); MONOCYTES % (AUTO) 5.9 % (1.0-10.0); NEUTROPHILS % (AUTO) 84.8 % (45.0-75.0); PLATELET COUNT 141 K/UL (150-450); RED BLOOD COUNT 5.37 M/UL (4.70-6.10); RED CELL DISTRIBUTION WIDTH 12.4 % (11.6-14.8); WHITE BLOOD COUNT 12.9 K/UL (4.8-10.8)
[2019-12-21 19:15] LABS: ALANINE AMINOTRANSFERASE 132 U/L (12-78); ALBUMIN 4.4 G/DL (3.4-5.0); ALBUMIN/GLOBULIN RATIO 1.1 (1.0-2.7); ALKALINE PHOSPHATASE 50 U/L (46-116); ASPARTATE AMINO TRANSFERASE 123 U/L (15-37); BILIRUBIN,TOTAL 0.6 MG/DL (0.2-1.0)
--- NOTE | 2019-12-21 19:20 | NUR ---
ED Nurse Note: Report taken from ROLO Galarza. Pt resting in bed, aao x 4, steady gait, skin intact. VSS. no s/s of distress noted.
[2019-12-21] MEDS ORDERED: Cefepime HCl 2 GM in D5W 55 ML IVPB ONE (19:45)
[2019-12-21] MEDS ORDERED: Vancomycin 1.5gm/NS Premix 275 ML IVPB SCH (19:45)
[2019-12-21 20:15] VITALS: BP 122/82
--- NOTE | 2019-12-21 21:20 | NUR ---
ED Nurse Note: Pt resting in bed, VSS, temp 98.0; no s/s of distress noted.
[2019-12-21] MEDS ORDERED: Vancomycin 1.5gm vial IVPB ONE (21:22)
[2019-12-21] MEDS ORDERED: Vancomycin 1.25 GM in NS 275 ML IVPB ONE (21:45)
[2019-12-21] MEDS ORDERED: Vancomycin 1.5 GM in NS 275 ML IVPB ONE (21:45)
[2019-12-21 22:28] VITALS: BP 122/85
--- NOTE | 2019-12-21 22:30 | NUR ---
ED Nurse Note: all medications administered. pt tolerated well. no ss of distress noted. no adverse reactions noted.
[2019-12-22] VITALS (7 sets, daily range): BP systolic 102–133; BP diastolic 59–83
[2019-12-22] MEDS ORDERED: Albuterol/Ipratropium 3ml neb HHN PRN
[2019-12-22] MEDS ORDERED: Miralax 17gm pkt ORAL PRN
--- NOTE | 2019-12-22 00:20 | NUR ---
ED Nurse Note: pt resting in bed, vss no ss of distress noted.
[2019-12-22] MEDS ORDERED: DOCUSATE SODIU100 MG ORAL (00:33)
[2019-12-22] MEDS ORDERED: JULUCA 50-25 M1 EACH PO (00:33)
[2019-12-22] MEDS ORDERED: GABAPENTIN600 MG ORAL (00:33)
[2019-12-22] MEDS ORDERED: PROSCAR5 MG ORAL (00:33)
[2019-12-22] MEDS ORDERED: LIVALO4 MG PO (00:33)
[2019-12-22] MEDS ORDERED: MONTELUKAST SOD10 MG ORAL (00:33)
[2019-12-22] MEDS ORDERED: LOMOTIL TABLET1 EAC1 PO (00:33)
[2019-12-22] MEDS ORDERED: FLOMAX0.4 MG ORAL (00:33)
[2019-12-22] MEDS ORDERED: IMODIUM MULTI-1 EACH PO (00:33)
[2019-12-22] MEDS ORDERED: LISINOPRIL10 MG ORAL (00:33)
[2019-12-22] MEDS ORDERED: METFORMIN HCL500 M1 ORAL (00:33)
--- NOTE | 2019-12-22 02:32 | NUR ---
ED Nurse Note: pt resting in bed no ss of distress noted. pt was given food, tolerated well.
--- NOTE | 2019-12-22 04:00 | NUR ---
ED Nurse Note: Patient was moved from Ortho to Bed 8. Pt alert and orientedx4, verbally responsive. Ambulatory. Not in any distress. Droplet precaution is observed.
[2019-12-22] MEDS ORDERED: Azithromycin 500mg Inj IV ONE (05:19)
[2019-12-22] MEDS: Azithromycin 500 MG in D5W 275 ML IV SCH (05:22)
--- NOTE | 2019-12-22 05:38 | NUR ---
ED Nurse Note: Pt c/o feeling nauseous. Zofran 4mg PRN as ordered.
[2019-12-22 06:08] LABS: ANION GAP 9 mmol/L (5-15); BASOPHILS % (AUTO) 0.7 % (0.0-2.0); BLOOD UREA NITROGEN 44 mg/dL (7-18); CALCIUM 7.2 MG/DL (8.5-10.1); CARBON DIOXIDE 25 MMOL/L (21-32); CHLORIDE 106 MMOL/L (98-107); CREATININE 1.6 MG/DL (0.55-1.30); HEMATOCRIT 38.6 % (42.0-52.0); HEMOGLOBIN 13.9 G/DL (14.2-18.0); LYMPHOCYTES % (AUTO) 21.5 % (20.0-45.0); MEAN CORPUSCULAR VOLUME 89 FL (80-99); MONOCYTES % (AUTO) 9.8 % (1.0-10.0); NEUTROPHILS % (AUTO) 67.1 % (45.0-75.0); PLATELET COUNT 105 K/UL (150-450); POTASSIUM 3.6 MMOL/L (3.5-5.1); RED BLOOD COUNT 4.32 M/UL (4.70-6.10); RED CELL DISTRIBUTION WIDTH 11.4 % (11.6-14.8); SODIUM 140 MMOL/L (136-145); WHITE BLOOD COUNT 6.5 K/UL (4.8-10.8)
[2019-12-22] MEDS: cefTRIAXone 1 GM in D5W 55 ML IV SCH (06:26)
--- NOTE | 2019-12-22 07:33 | NUR ---
ED Nurse Note: Report received from ROLO Fernández. Pt in stable condition, awaiting transfer to SDU.
--- NOTE | 2019-12-22 07:41 | NUR ---
ED Nurse Note: Report given to ROLO Castelan on SDU.
--- NOTE | 2019-12-22 07:50 | NUR ---
ED Nurse Note: Pt transferred safely to SDU
--- NOTE | 2019-12-22 08:00 | NUR ---
NURSE NOTES: Received patient from CHRISTIAN Thompson RN. Patient is aox4, and palauan speaking. Patient is on RA and tolerating well. Patient VSS. Patient placed in a gown. Patient skin is dry and intact. Bed is in lowest position, locked and alarmed. Side rails x2, Call light is within reach. Will continue to monitor.
[2019-12-22] MEDS: Heparin 5000 units/ml inj SUBQ SCH ×2 (09:00→21:11)
[2019-12-22] MEDS: Docusate 100mg cap ORAL SCH ×2 (09:00→20:24)
--- NOTE | 2019-12-22 11:17 | NUR ---
CASE MANAGEMENT:INITIAL REVIEW 69 YR OLD MALE FROM HOME CC;NAUSEA. VOMITING. DIARRHEA. SI;RENAL INSUFFICIENCY. TRANSAMINITIS. PNA. 101.7 110 19 126/83 94% ON RA WBC 12.9 BUN 51 CR 2.2 CA 8.3 AST 123 ALT 132 UA+ PROTEIN, KETONES, BLOOD, RBC ABD/PELVIS CT ~ Fatty liver. Fibrosis at the lung bases. Mild diverticulosis of the colon. No definite diverticulitis. IS;ACETAMINOPHEN PO ONCE IVF NS BOLUS PEPCID IV ONCE CEFEPIME IV ONCE IBUPROFEN PO ONCE VANCOMYCIN IV ONCE AZITHROMYCIN IV ONCE ROCEPHIN IV ONCE DUO NEB HHN ADMITTED TO [facility] STATUS DCP;FROM HOME
--- NOTE | 2019-12-22 11:25 | Consultation ---
History of Present Illness General Chief Complaint: Nausea, Vomiting, and Diarrhea Present Illness HPI 69-year-old male past medical history of HIV, hypertension, COPD, diabetes, lymphoma who presents to the ER with multiple complaints. Patient states that his HIV is well controlled he is on antiretrovirals and that last month his CD4 count was around 500 600 and that his viral load is undetectable. Patient presents complaining of abdominal pain nausea vomiting for the past 3 days. He complains of upper abdominal pain with nonbilious nonbloody vomitus and nonbloody diarrhea. Patient also complains of fever and chills. He complains of generalized weakness.. He states that his blood glucose was less than 200 earlier today. Patient also complains of cough that is nonproductive with chest wall discomfort. He states that the chest wall discomfort is only present when coughing. He denies any recent travel or sick contacts. Patient denies any rash or neck stiffness. Cr on presentation 2.2- improved to 1.6 s/p 2L NS bolus Ct abdomen w/o contrast IMPRESSION: Fatty liver. Fibrosis at the lung bases Status post cholecystectomy. Mild diverticulosis of the colon. No definite diverticulitis. Other incidental findings as above Note: Evaluation of solid organs is limited on non contrast imaging. Allergies: Coded Allergies: ABACAVIR (Verified Allergy, Unknown, 01/26/19) DIDANOSINE (Verified Allergy, Unknown, 01/26/19) EFAVIRENZ (Verified Allergy, Unknown, 01/26/19) FOSAMPRENAVIR (Verified Allergy, Unknown, 01/26/19) INDINAVIR (Verified Allergy, Unknown, 01/26/19) SULFAMETHOXAZOLE (Verified Allergy, Unknown, 01/26/19) TRIMETHOPRIM (Verified Allergy, Unknown, 01/29/09) HYDROMORPHONE (Verified Adverse Reaction, Unknown, VOMITS, 06/12/12) Medication History Scheduled Aspirin (Aspirin), 81 MG PO DAILY, (Reported) Docusate Sodium* (Docusate Sodium*), 100 MG ORAL THREE TIMES A DAY, (Reported) Dolutegravir/Rilpivirine (Juluca 50-25 Mg Tablet), 1 EACH PO DAILY, (Reported) Finasteride (Finasteride), DAILY, (Reported) Finasteride* (Proscar*), 5 MG ORAL DAILY, (Reported) Furosemide* (Lasix*), 20 MG ORAL DAILY, (Reported) Gabapentin* (Gabapentin*), 600 MG ORAL THREE TIMES A DAY, (Reported) Lisinopril* (Lisinopril*), 10 MG ORAL DAILY, (Reported) Metformin Hcl* (Metformin Hcl*), 500 MG ORAL TWICE A DAY, (Reported) Montelukast Sodium* (Montelukast Sodium*), DAILY, (Reported) Montelukast Sodium* (Montelukast Sodium*), 10 MG ORAL DAILY, (Reported) Niacin (Niacin), 500 MG PO DAILY, (Reported) Pitavastatin Calcium (Livalo), 4 MG PO HS, (Reported) Ranitidine Hcl* (Zantac*), 150 MG ORAL DAILY, (Reported) Rivaroxaban (Xarelto*), 10 MG PO DAILY, (Reported) Sucralfate* (Carafate*), 1 GM ORAL FIVE TIMES A DAY, (Reported) Tamsulosin HCl (Flomax), 0.4 MG ORAL DAILY, (Reported) Scheduled PRN Diphenhydramine Hcl (Diphenhydramine Hcl), 50 MG ORAL BEDTIME PRN for Itching, ( Reported) Miscellaneous Medications Diphenoxylate HCl/Atropine (Lomotil Tablet), 1 EACH PO, (Reported) Loperamide Hcl/Simethicone (Imodium Multi-Symptom Rel Cplt), 1 EACH PO, ( Reported) Pitavastatin Calcium (Livalo), 4 MG PO, (Reported) Discontinued Medications Acetaminophen* (Tylenol Extra Strength*), 500 MG ORAL Q6H Discontinued Reason: Pt stopped taking med Acyclovir (Zovirax), 1 APPLIC TOPIC, (Reported) Discontinued Reason: Pt stopped taking med Acyclovir (Zovirax), 1 APPLIC TOPIC PRN, (Reported) Discontinued Reason: Pt stopped taking med Albuterol Sulfate* (Proair Hfa*), 2 PUFFS INH Q6H, (Reported) Discontinued Reason: Pt stopped taking med Amoxicillin/Potassium Clav 875-125* (Augmentin 875-125 Tablet*), 1 TAB ORAL TWICE A DAY Discontinued Reason: Pt stopped taking med Amoxicillin/Potassium Clav 875-125* (Augmentin 875-125 Tablet*), 1 TAB ORAL TWICE A DAY Discontinued Reason: Pt stopped taking med Bysto (Bystolic), 10 MG PO BID, (Reported) Discontinued Reason: Pt stopped taking med Cimetidine (Cimetidine), 1,600 MG ORAL BEDTIME, (Reported) Discontinued Reason: Pt stopped taking med Desvenlafaxine Succinate (Pristiq Er), 50 MG PO DAILY, (Reported) Discontinued Reason: Pt stopped taking med Dolutegravir Sodium (Tivicay), 50 MG ORAL DAILY, (Reported) Discontinued Reason: Pt stopped taking med Econazole Nitrate (Econazole Nitrate), 30 GM TP PRN, (Reported) Discontinued Reason: Pt stopped taking med Etravirine (Intelence), PO BID, (Reported) Discontinued Reason: Pt stopped taking med Fenofibrate,Micronized (Fenofibrate), DAILY, (Reported) Discontinued Reason: Pt stopped taking med Gabapentin* (Gabapentin*), 300 MG PO TID, (Reported) Discontinued Reason: Pt stopped taking med Insulin Detemir (Levemir), 30 UNITS SQ DAILY, (Reported) Discontinued Reason: Pt stopped taking med Levothyroxine Sodium (Synthroid), 50 MCG ORAL DAILY, (Reported) Discontinued Reason: Pt stopped taking med Maraviroc* (Selzentry*), 600 MG ORAL EVERY 12 HOURS, (Reported) Discontinued Reason: Pt stopped taking med Metformin Hcl* (Glucophage*), 1,000 MG ORAL TWICE A DAY, (Reported) Discontinued Reason: Pt stopped taking med Mupirocin* (Mupirocin*), 1 APPLIC TOPIC THREE TIMES A DAY Discontinued Reason: Pt stopped taking med Olmesartan Medoxomil (Benicar), 20 MG ORAL DAILY, (Reported) Discontinued Reason: Pt stopped taking med Paroxetine Hcl* (Paxil*), 20 MG PO DAILY, (Reported) Discontinued Reason: Pt stopped taking med Tiotropium [place]* (Spiriva*), DAILY, (Reported) Discontinued Reason: Pt stopped taking med Valsartan (Diovan), 80 MG ORAL DAILY, (Reported) Discontinued Reason: Pt stopped taking med Patient History Healthcare decision maker Resuscitation status Full Code Advanced Directive on File Physical Exam General Appearance: WD/WN, no apparent distress Lines, tubes and drains: peripheral HEENT: normocephalic, atraumatic Neck: non-tender, supple Respiratory/Chest: chest wall non-tender, lungs clear Cardiovascular/Chest: normal peripheral pulses, normal rate, regular rhythm Abdomen: normal bowel sounds, non tender, soft Neurologic: alert, oriented x 3 Last 24 Hour Vital Signs Date Time Temp Pulse Resp B/P (MAP) Pulse Ox O2 Delivery O2 Flow Rate FiO2 12/22/19 09:00 Room Air 12/22/19 08:30 Room Air 12/22/19 08:25 96.8 76 20 133/83 (100) 100 12/22/19 04:05 98.1 71 14 128/61 96 Room Air 12/22/19 02:33 97.9 79 16 122/79 98 Room Air 12/22/19 00:20 101.7 83 16 126/83 98 Room Air 12/21/19 22:28 101.7 87 16 122/85 98 Room Air 12/21/19 20:15 101.7 89 18 122/82 98 Room Air 12/21/19 19:35 101.7 12/21/19 19:35 101.7 12/21/19 18:39 101.7 98 19 116/88 98 Room Air 12/21/19 17:11 101.7 110 18 118/76 (90) 94 Room Air Intake and Output 12/21/19 12/22/19 19:00 07:00 Intake Total 0 ml 1000 ml Balance 0 ml 1000 ml Intake Oral 0 ml IV Total 1000 ml Laboratory Tests Test 12/21/19 18:20 12/21/19 19:00 12/21/19 21:06 12/21/19 23:40 Prothrombin Time 11.4 SEC (9.30-11.50) Prothromb Time International Ratio 1.1 (0.9-1.1) Activated Partial Thromboplast Time 23 SEC (23-33) Urine Color Yellow Urine Appearance Clear Urine pH 5 (4.5-8.0) Urine Specific P[place]ell 1.025 (1.005-1.035) Urine Protein 2+ (NEGATIVE) H Urine Glucose (UA) Negative (NEGATIVE) Urine Ketones 1+ (NEGATIVE) H Urine Blood 3+ (NEGATIVE) H Urine Nitrite Negative (NEGATIVE) Urine Bilirubin Negative (NEGATIVE) Urine Urobilinogen Normal MG/DL (0.0-1.0) Urine Leukocyte Esterase Negative (NEGATIVE) Urine RBC 2-4 /HPF (0 - 0) H Urine WBC 0-2 /HPF (0 - 0) Urine Squamous Epithelial Cells None /LPF (NONE/OCC) Urine Bacteria Few /HPF (NONE) Sodium Level 137 MMOL/L (136-145) Potassium Level 4.7 MMOL/L (3.5-5.1) Chloride Level 99 MMOL/L (98-107) Carbon Dioxide Level 24 MMOL/L (21-32) Anion Gap 14 mmol/L (5-15) Blood Urea Nitrogen 51 mg/dL (7-18) H Creatinine 2.2 MG/DL (0.55-1.30) H Estimat Glomerular Filtration Rate 30.0 mL/min (>60) Glucose Level 182 MG/DL (74-106) H Calcium Level 8.3 MG/DL (8.5-10.1) L Magnesium Level 1.9 MG/DL (1.8-2.4) Total Bilirubin 0.6 MG/DL (0.2-1.0) Aspartate Amino Transf (AST/SGOT) 123 U/L (15-37) H Alanine Aminotransferase (ALT/SGPT) 132 U/L (12-78) H Alkaline Phosphatase 50 U/L (46-116) Troponin I 0.000 ng/mL (0.000-0.056) Pro-B-Type Natriuretic Peptide 128 pg/mL (0-125) H Total Protein 8.4 G/DL (6.4-8.2) H Albumin 4.4 G/DL (3.4-5.0) Globulin 4.0 g/dL Albumin/Globulin Ratio 1.1 (1.0-2.7) Lipase 79 U/L (73-393) Acetone Level Negative (NEGATIVE) White Blood Count 12.9 K/UL (4.8-10.8) H Red Blood Count 5.37 M/UL (4.70-6.10) Hemoglobin 16.7 G/DL (14.2-18.0) Hematocrit 50.1 % (42.0-52.0) Mean Corpuscular Volume 93 FL (80-99) Mean Corpuscular Hemoglobin 31.2 PG (27.0-31.0) H Mean Corpuscular Hemoglobin Concent 33.3 G/DL (32.0-36.0) Red Cell Distribution Width 12.4 % (11.6-14.8) Platelet Count 141 K/UL (150-450) L Mean Platelet Volume 7.8 FL (6.5-10.1) Neutrophils (%) (Auto) 84.8 % (45.0-75.0) H Lymphocytes (%) (Auto) 8.8 % (20.0-45.0) L Monocytes (%) (Auto) 5.9 % (1.0-10.0) Eosinophils (%) (Auto) 0.0 % (0.0-3.0) Basophils (%) (Auto) 0.5 % (0.0-2.0) Lactic Acid Level 2.90 mmol/L (0.4-2.0) H 1.50 mmol/L (0.66-2.22) Venous Blood pH 7.33 Venous Blood Partial Pressure CO2 42.4 Venous Blood Partial Pressure O2 38.9 Venous Blood HCO3 21.9 Venous Blood Total Carbon Dioxide 42.4 Venous Blood Base Excess -3.9 Venous Blood Carboxyhemoglobin 0.9 % (0.5-1.5) Methemoglobin 0.6 Test 12/22/19 05:15 12/22/19 05:35 White Blood Count 6.5 K/UL (4.8-10.8) Red Blood Count 4.32 M/UL (4.70-6.10) L Hemoglobin 13.9 G/DL (14.2-18.0) L Hematocrit 38.6 % (42.0-52.0) L Mean Corpuscular Volume 89 FL (80-99) Mean Corpuscular Hemoglobin 32.2 PG (27.0-31.0) H Mean Corpuscular Hemoglobin Concent 36.0 G/DL (32.0-36.0) Red Cell Distribution Width 11.4 % (11.6-14.8) L Platelet Count 105 K/UL (150-450) L Mean Platelet Volume 7.0 FL (6.5-10.1) Neutrophils (%) (Auto) 67.1 % (45.0-75.0) Lymphocytes (%) (Auto) 21.5 % (20.0-45.0) Monocytes (%) (Auto) 9.8 % (1.0-10.0) Eosinophils (%) (Auto) 1.0 % (0.0-3.0) Basophils (%) (Auto) 0.7 % (0.0-2.0) Sodium Level 140 MMOL/L (136-145) Potassium Level 3.6 MMOL/L (3.5-5.1) Chloride Level 106 MMOL/L (98-107) Carbon Dioxide Level 25 MMOL/L (21-32) Anion Gap 9 mmol/L (5-15) Blood Urea Nitrogen 44 mg/dL (7-18) H Creatinine 1.6 MG/DL (0.55-1.30) H Estimat Glomerular Filtration Rate 43.3 mL/min (>60) Glucose Level 137 MG/DL (74-106) H Calcium Level 7.2 MG/DL (8.5-10.1) L Hepatitis A IgM Antibody Pending Hepatitis B Surface Antigen Pending Hepatitis B Core IgM Antibody Pending Hepatitis C Antibody Pending Microbiology Date/Time Source Procedure Growth Status 12/21/19 19:00 Nasal Nares - Final Complete 12/21/19 19:00 Nasal Nares - Final Complete Height (Feet): 5 Height (Inches): 7.00 Weight (Pounds): 223 Medications Current Medications Medications (Trade) Dose Ordered Sig/Jose Cruz Route PRN Reason Start Time Stop Time Status Last Admin Dose Admin Acetaminophen (Tylenol) 650 mg Q4H PRN ORAL Mild Pain (Pain Scale 1-3) 12/22/19 00:00 01/21/20 00:00 Acetaminophen (Tylenol) 650 mg Q4H PRN ORAL fever 12/22/19 00:00 01/21/20 00:00 Albuterol/ Ipratropium (Albuterol/ Ipratropium) 3 ml Q6H PRN HHN Shortness of Breath 12/22/19 00:00 12/27/19 00:00 Azithromycin 500 mg/Dextrose 275 ml @ 275 mls/hr Q24H IV 12/22/19 05:00 12/29/19 04:59 12/22/19 05:22 Bisacodyl (Dulcolax) 10 mg DAILYPRN PRN RECTAL Constipation 12/22/19 00:00 03/21/20 00:00 Ceftriaxone Sodium 1 gm/ Dextrose 55 ml @ 110 mls/hr Q24H IV 12/22/19 06:00 12/29/19 05:59 12/22/19 06:26 Docusate Sodium (Colace) 100 mg EVERY 12 HOURS ORAL 12/22/19 09:00 01/21/20 08:59 Heparin Sodium (Porcine) (Heparin 5000 units/ml) 5,000 units EVERY 12 HOURS SUBQ 12/22/19 09:00 02/05/20 08:59 Ondansetron HCl (Zofran) 4 mg Q6H PRN IVP Nausea & Vomiting 12/22/19 00:00 01/21/20 00:00 12/22/19 05:38 Polyethylene Glycol (Miralax) 17 gm DAILYPRN PRN ORAL Constipation 12/22/19 00:00 01/21/20 00:00 Assessment/Plan Diagnosis [place] [facility]: #acute kidney injury likely due to pre-renal azotemia in the setting of sepsis #lactic acidosis- resolved # HIV #HTN #DM #BPH - continue with NS hydation - on abx - ceftriaxone and azithro - will proceed with further renal work up if renal function fails to improve hydration - hold lisinopril - hold metformin - continue flomax - avoid nephrotoxins - avoid NSAIDs Antoine Martinez M.D. Dec 22, 2019 11:25
--- NOTE | 2019-12-22 12:16 | Diagnostic Imaging Report ---
Indication: Dyspnea Comparison: 10/30/2015 A single view chest radiograph was obtained. Findings: Mild pulmonary vascular congestion suspected. Heart is enlarged. Bones are osteopenic. Aorta is mildly ectatic. IMPRESSION: Interstitial edema/CHF suspected
--- NOTE | 2019-12-22 14:21 | Diagnostic Imaging Report ---
Indication: Abdominal pain Technique: Grayscale and duplex Doppler imaging of the abdomen performed. Comparison: None Findings: The liver is enlarged measuring 20 cm and diffusely echogenic. Doppler interrogation of the main portal vein shows patency with hepatopedal, monophasic flow. There is no biliary ductal dilatation identified. Gallbladder is absent. Spleen is enlarged measuring 16 cm. There demonstrated part of the pancreas, aorta and IVC show no definite abnormalities though largely obscured by bowel gas. Both kidneys appear unremarkable. There is no hydronephrosis. IMPRESSION: Fatty infiltration of the liver with hepatosplenomegaly. Status post cholecystectomy.
--- NOTE | 2019-12-22 18:10 | History and Physical ---
History of Present Illness General Date patient seen: Dec 22, 2019 Time patient seen: 09:05 Reason for Hospitalization: Nausea, Vomiting, and Diarrhea Present Illness HPI 69 year old man with HIV, hypertension, COPD, diabetes, lymphoma, BPH who presents to the ER with complaints of abdominal discomfort and persistent diarrhea Patient states that his HIV is well controlled he is on antiretrovirals and that last month his CD4 count was around 500 600 and that his viral load is undetectable. Patient presents complaining of abdominal pain nausea vomiting for the past 3 days. He complains of upper abdominal pain with nonbilious nonbloody vomitus and nonbloody diarrhea. Patient also complains of fever and chills. He complains of generalized weakness.. He states that his blood glucose was less than 200 earlier today. Patient also complains of cough that is nonproductive with chest wall discomfort. He states that the chest wall discomfort is only present when coughing. He denies any recent travel or sick contacts. Patient denies any rash, sick contacts/COVID contacts, foreign travel Allergies: Coded Allergies: ABACAVIR (Verified Allergy, Unknown, 01/26/19) DIDANOSINE (Verified Allergy, Unknown, 01/26/19) EFAVIRENZ (Verified Allergy, Unknown, 01/26/19) FOSAMPRENAVIR (Verified Allergy, Unknown, 01/26/19) INDINAVIR (Verified Allergy, Unknown, 01/26/19) SULFAMETHOXAZOLE (Verified Allergy, Unknown, 01/26/19) TRIMETHOPRIM (Verified Allergy, Unknown, 01/29/09) HYDROMORPHONE (Verified Adverse Reaction, Unknown, VOMITS, 06/12/12) Medication History Scheduled Aspirin (Aspirin), 81 MG PO DAILY, (Reported) Docusate Sodium* (Docusate Sodium*), 100 MG ORAL THREE TIMES A DAY, (Reported) Dolutegravir/Rilpivirine (Juluca 50-25 Mg Tablet), 1 EACH PO DAILY, (Reported) Finasteride (Finasteride), DAILY, (Reported) Finasteride* (Proscar*), 5 MG ORAL DAILY, (Reported) Furosemide* (Lasix*), 20 MG ORAL DAILY, (Reported) Gabapentin* (Gabapentin*), 600 MG ORAL THREE TIMES A DAY, (Reported) Lisinopril* (Lisinopril*), 10 MG ORAL DAILY, (Reported) Metformin Hcl* (Metformin Hcl*), 500 MG ORAL TWICE A DAY, (Reported) Montelukast Sodium* (Montelukast Sodium*), DAILY, (Reported) Montelukast Sodium* (Montelukast Sodium*), 10 MG ORAL DAILY, (Reported) Niacin (Niacin), 500 MG PO DAILY, (Reported) Pitavastatin Calcium (Livalo), 4 MG PO HS, (Reported) Ranitidine Hcl* (Zantac*), 150 MG ORAL DAILY, (Reported) Rivaroxaban (Xarelto*), 10 MG PO DAILY, (Reported) Sucralfate* (Carafate*), 1 GM ORAL FIVE TIMES A DAY, (Reported) Tamsulosin HCl (Flomax), 0.4 MG ORAL DAILY, (Reported) Scheduled PRN Diphenhydramine Hcl (Diphenhydramine Hcl), 50 MG ORAL BEDTIME PRN for Itching, ( Reported) Miscellaneous Medications Diphenoxylate HCl/Atropine (Lomotil Tablet), 1 EACH PO, (Reported) Loperamide Hcl/Simethicone (Imodium Multi-Symptom Rel Cplt), 1 EACH PO, ( Reported) Pitavastatin Calcium (Livalo), 4 MG PO, (Reported) Discontinued Medications Acetaminophen* (Tylenol Extra Strength*), 500 MG ORAL Q6H Discontinued Reason: Pt stopped taking med Acyclovir (Zovirax), 1 APPLIC TOPIC, (Reported) Discontinued Reason: Pt stopped taking med Acyclovir (Zovirax), 1 APPLIC TOPIC PRN, (Reported) Discontinued Reason: Pt stopped taking med Albuterol Sulfate* (Proair Hfa*), 2 PUFFS INH Q6H, (Reported) Discontinued Reason: Pt stopped taking med Amoxicillin/Potassium Clav 875-125* (Augmentin 875-125 Tablet*), 1 TAB ORAL TWICE A DAY Discontinued Reason: Pt stopped taking med Amoxicillin/Potassium Clav 875-125* (Augmentin 875-125 Tablet*), 1 TAB ORAL TWICE A DAY Discontinued Reason: Pt stopped taking med Bysto (Bystolic), 10 MG PO BID, (Reported) Discontinued Reason: Pt stopped taking med Cimetidine (Cimetidine), 1,600 MG ORAL BEDTIME, (Reported) Discontinued Reason: Pt stopped taking med Desvenlafaxine Succinate (Pristiq Er), 50 MG PO DAILY, (Reported) Discontinued Reason: Pt stopped taking med Dolutegravir Sodium (Tivicay), 50 MG ORAL DAILY, (Reported) Discontinued Reason: Pt stopped taking med Econazole Nitrate (Econazole Nitrate), 30 GM TP PRN, (Reported) Discontinued Reason: Pt stopped taking med Etravirine (Intelence), PO BID, (Reported) Discontinued Reason: Pt stopped taking med Fenofibrate,Micronized (Fenofibrate), DAILY, (Reported) Discontinued Reason: Pt stopped taking med Gabapentin* (Gabapentin*), 300 MG PO TID, (Reported) Discontinued Reason: Pt stopped taking med Insulin Detemir (Levemir), 30 UNITS SQ DAILY, (Reported) Discontinued Reason: Pt stopped taking med Levothyroxine Sodium (Synthroid), 50 MCG ORAL DAILY, (Reported) Discontinued Reason: Pt stopped taking med Maraviroc* (Selzentry*), 600 MG ORAL EVERY 12 HOURS, (Reported) Discontinued Reason: Pt stopped taking med Metformin Hcl* (Glucophage*), 1,000 MG ORAL TWICE A DAY, (Reported) Discontinued Reason: Pt stopped taking med Mupirocin* (Mupirocin*), 1 APPLIC TOPIC THREE TIMES A DAY Discontinued Reason: Pt stopped taking med Olmesartan Medoxomil (Benicar), 20 MG ORAL DAILY, (Reported) Discontinued Reason: Pt stopped taking med Paroxetine Hcl* (Paxil*), 20 MG PO DAILY, (Reported) Discontinued Reason: Pt stopped taking med Tiotropium [place]* (Spiriva*), DAILY, (Reported) Discontinued Reason: Pt stopped taking med Valsartan (Diovan), 80 MG ORAL DAILY, (Reported) Discontinued Reason: Pt stopped taking med Patient History Healthcare decision maker Resuscitation status Full Code Advanced Directive on File Family History Family History: Patient reports no known family medical history. Review of Systems Constitutional: Reports: chills, fever Eye: Denies: eye pain, blurred vision ENT: Denies: ear pain Respiratory: Denies: cough Cardiovascular: Denies: chest pain Gastrointestinal: Reports: abdominal pain, diarrhea; Denies: nausea, vomiting Genitourinary: Denies: discharge, dysuria Musculoskeletal: Denies: back pain Skin: Denies: rash Neurological: Denies: headache Endocrine: Denies: excessive sweating, flushing Hematologic/Lymphatic: Denies: anemia Physical Exam General Appearance: no apparent distress, alert HEENT: atraumatic, anicteric Neck: normal alignment, supple Respiratory/Chest: lungs clear, normal breath sounds, no respiratory distress, no accessory muscle use Cardiovascular/Chest: normal rate, regular rhythm Abdomen: non tender, soft, no organomegaly, no mass Neurologic: manager play II-XII grossly normal, no motor/sensory deficits, alert, oriented x 3 Last 24 Hour Vital Signs Date Time Temp Pulse Resp B/P (MAP) Pulse Ox O2 Delivery O2 Flow Rate FiO2 12/22/19 16:00 97.2 75 20 102/59 (73) 99 12/22/19 12:00 97.0 73 20 126/63 (84) 100 12/22/19 09:00 Room Air 12/22/19 08:30 Room Air 12/22/19 08:25 96.8 76 20 133/83 (100) 100 12/22/19 04:05 98.1 71 14 128/61 96 Room Air 12/22/19 02:33 97.9 79 16 122/79 98 Room Air 12/22/19 00:20 101.7 83 16 126/83 98 Room Air 12/21/19 22:28 101.7 87 16 122/85 98 Room Air 12/21/19 20:15 101.7 89 18 122/82 98 Room Air 12/21/19 19:35 101.7 12/21/19 19:35 101.7 12/21/19 18:39 101.7 98 19 116/88 98 Room Air Intake and Output 12/21/19 12/22/19 19:00 07:00 Intake Total 0 ml 1000 ml Balance 0 ml 1000 ml Intake Oral 0 ml IV Total 1000 ml Laboratory Tests Test 12/21/19 18:20 12/21/19 19:00 12/21/19 21:06 12/21/19 23:40 Prothrombin Time 11.4 SEC (9.30-11.50) Prothromb Time International Ratio 1.1 (0.9-1.1) Activated Partial Thromboplast Time 23 SEC (23-33) Urine Color Yellow Urine Appearance Clear Urine pH 5 (4.5-8.0) Urine Specific [place] 1.025 (1.005-1.035) Urine Protein 2+ (NEGATIVE) H Urine Glucose (UA) Negative (NEGATIVE) Urine Ketones 1+ (NEGATIVE) H Urine Blood 3+ (NEGATIVE) H Urine Nitrite Negative (NEGATIVE) Urine Bilirubin Negative (NEGATIVE) Urine Urobilinogen Normal MG/DL (0.0-1.0) Urine Leukocyte Esterase Negative (NEGATIVE) Urine RBC 2-4 /HPF (0 - 0) H Urine WBC 0-2 /HPF (0 - 0) Urine Squamous Epithelial Cells None /LPF (NONE/OCC) Urine Bacteria Few /HPF (NONE) Sodium Level 137 MMOL/L (136-145) Potassium Level 4.7 MMOL/L (3.5-5.1) Chloride Level 99 MMOL/L (98-107) Carbon Dioxide Level 24 MMOL/L (21-32) Anion Gap 14 mmol/L (5-15) Blood Urea Nitrogen 51 mg/dL (7-18) H Creatinine 2.2 MG/DL (0.55-1.30) H Estimat Glomerular Filtration Rate 30.0 mL/min (>60) Glucose Level 182 MG/DL (74-106) H Calcium Level 8.3 MG/DL (8.5-10.1) L Magnesium Level 1.9 MG/DL (1.8-2.4) Total Bilirubin 0.6 MG/DL (0.2-1.0) Aspartate Amino Transf (AST/SGOT) 123 U/L (15-37) H Alanine Aminotransferase (ALT/SGPT) 132 U/L (12-78) H Alkaline Phosphatase 50 U/L (46-116) Troponin I 0.000 ng/mL (0.000-0.056) Pro-B-Type Natriuretic Peptide 128 pg/mL (0-125) H Total Protein 8.4 G/DL (6.4-8.2) H Albumin 4.4 G/DL (3.4-5.0) Globulin 4.0 g/dL Albumin/Globulin Ratio 1.1 (1.0-2.7) Lipase 79 U/L (73-393) Acetone Level Negative (NEGATIVE) White Blood Count 12.9 K/UL (4.8-10.8) H Red Blood Count 5.37 M/UL (4.70-6.10) Hemoglobin 16.7 G/DL (14.2-18.0) Hematocrit 50.1 % (42.0-52.0) Mean Corpuscular Volume 93 FL (80-99) Mean Corpuscular Hemoglobin 31.2 PG (27.0-31.0) H Mean Corpuscular Hemoglobin Concent 33.3 G/DL (32.0-36.0) Red Cell Distribution Width 12.4 % (11.6-14.8) Platelet Count 141 K/UL (150-450) L Mean Platelet Volume 7.8 FL (6.5-10.1) Neutrophils (%) (Auto) 84.8 % (45.0-75.0) H Lymphocytes (%) (Auto) 8.8 % (20.0-45.0) L Monocytes (%) (Auto) 5.9 % (1.0-10.0) Eosinophils (%) (Auto) 0.0 % (0.0-3.0) Basophils (%) (Auto) 0.5 % (0.0-2.0) Lactic Acid Level 2.90 mmol/L (0.4-2.0) H 1.50 mmol/L (0.66-2.22) Venous Blood pH 7.33 Venous Blood Partial Pressure CO2 42.4 Venous Blood Partial Pressure O2 38.9 Venous Blood HCO3 21.9 Venous Blood Total Carbon Dioxide 42.4 Venous Blood Base Excess -3.9 Venous Blood Carboxyhemoglobin 0.9 % (0.5-1.5) Methemoglobin 0.6 Test 12/22/19 05:15 12/22/19 05:35 White Blood Count 6.5 K/UL (4.8-10.8) Red Blood Count 4.32 M/UL (4.70-6.10) L Hemoglobin 13.9 G/DL (14.2-18.0) L Hematocrit 38.6 % (42.0-52.0) L Mean Corpuscular Volume 89 FL (80-99) Mean Corpuscular Hemoglobin 32.2 PG (27.0-31.0) H Mean Corpuscular Hemoglobin Concent 36.0 G/DL (32.0-36.0) Red Cell Distribution Width 11.4 % (11.6-14.8) L Platelet Count 105 K/UL (150-450) L Mean Platelet Volume 7.0 FL (6.5-10.1) Neutrophils (%) (Auto) 67.1 % (45.0-75.0) Lymphocytes (%) (Auto) 21.5 % (20.0-45.0) Monocytes (%) (Auto) 9.8 % (1.0-10.0) Eosinophils (%) (Auto) 1.0 % (0.0-3.0) Basophils (%) (Auto) 0.7 % (0.0-2.0) Sodium Level 140 MMOL/L (136-145) Potassium Level 3.6 MMOL/L (3.5-5.1) Chloride Level 106 MMOL/L (98-107) Carbon Dioxide Level 25 MMOL/L (21-32) Anion Gap 9 mmol/L (5-15) Blood Urea Nitrogen 44 mg/dL (7-18) H Creatinine 1.6 MG/DL (0.55-1.30) H Estimat Glomerular Filtration Rate 43.3 mL/min (>60) Glucose Level 137 MG/DL (74-106) H Calcium Level 7.2 MG/DL (8.5-10.1) L Hepatitis A IgM Antibody Pending Hepatitis B Surface Antigen Pending Hepatitis B Core IgM Antibody Pending Hepatitis C Antibody Pending Microbiology Date/Time Source Procedure Growth Status 12/21/19 19:00 Nasal Nares - Final Complete 12/21/19 19:00 Nasal Nares - Final Complete Height (Feet): 5 Height (Inches): 7.00 Weight (Pounds): 223 Medications Current Medications Medications (Trade) Dose Ordered Sig/Jose Cruz Route PRN Reason Start Time Stop Time Status Last Admin Dose Admin Acetaminophen (Tylenol) 650 mg Q4H PRN ORAL Mild Pain (Pain Scale 1-3) 12/22/19 00:00 01/21/20 00:00 Acetaminophen (Tylenol) 650 mg Q4H PRN ORAL fever 12/22/19 00:00 01/21/20 00:00 Albuterol/ Ipratropium (Albuterol/ Ipratropium) 3 ml Q6H PRN HHN Shortness of Breath 12/22/19 00:00 12/27/19 00:00 Azithromycin 500 mg/Dextrose 275 ml @ 275 mls/hr Q24H IV 12/22/19 05:00 12/29/19 04:59 3/19/20 05:22 Bisacodyl (Dulcolax) 10 mg DAILYPRN PRN RECTAL Constipation 12/22/19 00:00 03/21/20 00:00 Ceftriaxone Sodium 1 gm/ Dextrose 55 ml @ 110 mls/hr Q24H IV 12/22/19 06:00 12/29/19 05:59 12/22/19 06:26 Docusate Sodium (Colace) 100 mg EVERY 12 HOURS ORAL 12/22/19 09:00 01/21/20 08:59 Heparin Sodium (Porcine) (Heparin 5000 units/ml) 5,000 units EVERY 12 HOURS SUBQ 12/22/19 09:00 02/05/20 08:59 Ondansetron HCl (Zofran) 4 mg Q6H PRN IVP Nausea & Vomiting 12/22/19 00:00 01/21/20 00:00 12/22/19 05:38 Polyethylene Glycol (Miralax) 17 gm DAILYPRN PRN ORAL Constipation 12/22/19 00:00 01/21/20 00:00 Sodium Chloride 1,000 ml @ 75 mls/hr [id number] IV 12/22/19 11:45 01/21/20 11:44 12/22/19 12:45 Assessment/Plan Assessment/Plan: 69 year old man with HIV,hypertension, COPD, diabetes, lymphoma, BPH who presents to the ER with complaints of abdominal discomfort and persistent diarrhea, found to have YRN. #Sepsis #Abdominal pain, N/V, diarrhea, negative CT A/P and US abd #AIDS -admit to medical service -check stool studies, C. diff, culture, O&P -GI consult, ID consult -continue broad spectrum antibiotics for now -follow up blood cultures -continue home ART #YRN, likely prerenal due to volume loss and possible ATN due to sepsis, improved renal function -cont IV hydration -hold ACEI, diuretics, NSAIDS -Nephrology consult -Check UA, Renal US #COPD -not in acute exacerbation -Duoneb prn #BPH -cont Proscar and Flomax -monitor urine output I spent 70 minutes on this patient's case, and >50% was dedicated to counseling and/or care coordination. I spent an additional 35 minutes on review of medical records including prior records, consult notes, progress notes, procedures, imaging, labs, hemodynamics , and other clinical documentation. Ferdinand Chawla MD Dec 22, 2019 18:10
[2019-12-22] MEDS: Sucralfate 1gm tab ORAL SCH (18:22)
--- NOTE | 2019-12-22 19:36 | NUR ---
HAND-OFF: Report given to ROLO Oconnor. Patient in stable condition.
--- NOTE | 2019-12-22 19:40 | NUR ---
NURSE NOTES: Received patient and report from ROLO Saenz. Patient is aox4, Arabic speaking, in no acute distress, watching TV on his bed. Patient is on RA and tolerating well. VS stable. Afebrile. Patient skin is dry and intact. PO regular diet, continent bowel and bladder. Noted Left AC 20G intact running Ns at 75 ml/hr. Call light with reach. Bed is in lowest position, locked and alarmed. Side rails x2. Will continue to monitor.
[2019-12-22] MEDS: JULUCA ORAL SCH (21:11)
--- NOTE | 2019-12-22 21:23 | Infectious Diseases Prog Note ---
Assessment/Plan Assessment/Plan Full consult to follow: A) 1) cap, fevers, sepsis, rule out covid-19 pna 2) hiv, hx aids, cd4>500 3) pmh noted P) 1) azithromycin, ceftriaxone 2) monitor labs, cultures, chest x-ray 3) thank you Subjective Allergies: Coded Allergies: ABACAVIR (Verified Allergy, Unknown, 01/26/19) DIDANOSINE (Verified Allergy, Unknown, 01/26/19) EFAVIRENZ (Verified Allergy, Unknown, 01/26/19) FOSAMPRENAVIR (Verified Allergy, Unknown, 01/26/19) INDINAVIR (Verified Allergy, Unknown, 01/26/19) SULFAMETHOXAZOLE (Verified Allergy, Unknown, 01/26/19) TRIMETHOPRIM (Verified Allergy, Unknown, 01/29/09) HYDROMORPHONE (Verified Adverse Reaction, Unknown, VOMITS, 06/12/12) Objective Vital Signs Last 24 Hour Vital Signs Date Time Temp Pulse Resp B/P (MAP) Pulse Ox O2 Delivery O2 Flow Rate FiO2 12/22/19 16:00 97.2 75 20 102/59 (73) 99 12/22/19 12:00 97.0 73 20 126/63 (84) 100 12/22/19 09:00 Room Air 12/22/19 08:30 Room Air 12/22/19 08:25 96.8 76 20 133/83 (100) 100 12/22/19 04:05 98.1 71 14 128/61 96 Room Air 12/22/19 02:33 97.9 79 16 122/79 98 Room Air 12/22/19 00:20 101.7 83 16 126/83 98 Room Air 12/21/19 22:28 101.7 87 16 122/85 98 Room Air Height (Feet): 5 Height (Inches): 7.00 Weight (Pounds): 223 Microbiology Date/Time Source Procedure Growth Status 12/21/19 19:00 Nasal Nares - Final Complete 12/21/19 19:00 Nasal Nares - Final Complete Laboratory Tests Test 12/21/19 23:40 12/22/19 05:15 12/22/19 05:35 Lactic Acid Level 1.50 mmol/L (0.66-2.22) White Blood Count 6.5 K/UL (4.8-10.8) Red Blood Count 4.32 M/UL (4.70-6.10) L Hemoglobin 13.9 G/DL (14.2-18.0) L Hematocrit 38.6 % (42.0-52.0) L Mean Corpuscular Volume 89 FL (80-99) Mean Corpuscular Hemoglobin 32.2 PG (27.0-31.0) H Mean Corpuscular Hemoglobin Concent 36.0 G/DL (32.0-36.0) Red Cell Distribution Width 11.4 % (11.6-14.8) L Platelet Count 105 K/UL (150-450) L Mean Platelet Volume 7.0 FL (6.5-10.1) Neutrophils (%) (Auto) 67.1 % (45.0-75.0) Lymphocytes (%) (Auto) 21.5 % (20.0-45.0) Monocytes (%) (Auto) 9.8 % (1.0-10.0) Eosinophils (%) (Auto) 1.0 % (0.0-3.0) Basophils (%) (Auto) 0.7 % (0.0-2.0) Sodium Level 140 MMOL/L (136-145) Potassium Level 3.6 MMOL/L (3.5-5.1) Chloride Level 106 MMOL/L (98-107) Carbon Dioxide Level 25 MMOL/L (21-32) Anion Gap 9 mmol/L (5-15) Blood Urea Nitrogen 44 mg/dL (7-18) H Creatinine 1.6 MG/DL (0.55-1.30) H Estimat Glomerular Filtration Rate 43.3 mL/min (>60) Glucose Level 137 MG/DL (74-106) H Calcium Level 7.2 MG/DL (8.5-10.1) L Hepatitis A IgM Antibody Pending Hepatitis B Surface Antigen Pending Hepatitis B Core IgM Antibody Pending Hepatitis C Antibody Pending Current Medications Medications (Trade) Dose Ordered Sig/Jose Cruz Route PRN Reason Start Time Stop Time Status Last Admin Dose Admin Acetaminophen (Tylenol) 650 mg Q4H PRN ORAL Mild Pain (Pain Scale 1-3) 12/22/19 00:00 01/21/20 00:00 Acetaminophen (Tylenol) 650 mg Q4H PRN ORAL fever 12/22/19 00:00 01/21/20 00:00 Albuterol/ Ipratropium (Albuterol/ Ipratropium) 3 ml Q6H PRN HHN Shortness of Breath 12/22/19 00:00 12/27/19 00:00 Aspirin (ASA) 81 mg DAILY ORAL 12/23/19 09:00 02/06/20 08:59 Azithromycin 500 mg/Dextrose 275 ml @ 275 mls/hr Q24H IV 12/22/19 05:00 12/29/19 04:59 12/22/19 05:22 Bisacodyl (Dulcolax) 10 mg DAILYPRN PRN RECTAL Constipation 12/22/19 00:00 03/21/20 00:00 Ceftriaxone Sodium 1 gm/ Dextrose 55 ml @ 110 mls/hr Q24H IV 12/22/19 06:00 12/29/19 05:59 12/22/19 06:26 Docusate Sodium (Colace) 100 mg EVERY 12 HOURS ORAL 12/22/19 09:00 01/21/20 08:59 Finasteride (Proscar) 5 mg DAILY ORAL 12/23/19 09:00 03/22/20 08:59 Gabapentin (Neurontin) 600 mg THREE TIMES A DAY ORAL 12/22/19 18:00 01/21/20 17:59 12/22/19 18:20 Heparin Sodium (Porcine) (Heparin 5000 units/ml) 5,000 units EVERY 12 HOURS SUBQ 12/22/19 09:00 02/05/20 08:59 12/22/19 21:11 Montelukast Sodium (Singulair) 10 mg DAILY ORAL 12/23/19 09:00 03/22/20 08:59 Ondansetron HCl (Zofran) 4 mg Q6H PRN IVP Nausea & Vomiting 12/22/19 00:00 01/21/20 00:00 12/22/19 05:38 Patient Own Medication (Patient's Own Med) 1 ea DAILY ORAL 12/22/19 20:00 01/21/20 19:59 12/22/19 21:11 Polyethylene Glycol (Miralax) 17 gm DAILYPRN PRN ORAL Constipation 12/22/19 00:00 01/21/20 00:00 Rivaroxaban (Xarelto) 10 mg DAILY ORAL 12/23/19 09:00 03/22/20 08:59 Sodium Chloride 1,000 ml @ 75 mls/hr [id number] IV 12/22/19 11:45 01/21/20 11:44 12/22/19 12:45 Sucralfate (Carafate) 1 gm FIVE TIMES A DAY ORAL 12/22/19 19:00 03/21/20 18:59 Tamsulosin HCl (Flomax) 0.4 mg DAILY ORAL 12/23/19 09:00 01/22/20 08:59 Jairo Chavez MD Dec 22, 2019 21:23
[2019-12-23] VITALS: BP 114/64
--- NOTE | 2019-12-23 | NUR ---
NURSE NOTES: Pt's resting in bed, watching TV, stated "feeling well", afebrile. Denies any other concerns/complaints at this time. Will continue to monitor.
[2019-12-23 04:00] VITALS: BP 106/60
--- NOTE | 2019-12-23 04:00 | NUR ---
NURSE NOTES: Pt's resting in bed, asleep, in no acute distress. VS stable. Will continue to monitor.
[2019-12-23] MEDS: cefTRIAXone 1 GM in D5W 55 ML IV SCH (05:53)
[2019-12-23] MEDS: Azithromycin 500 MG in D5W 275 ML IV SCH (05:54)
[2019-12-23 06:14] LABS: BASOPHILS % (AUTO) 0.9 % (0.0-2.0); EOSINOPHILS % (AUTO) 1.9 % (0.0-3.0); HEMATOCRIT 38.6 % (42.0-52.0); HEMOGLOBIN 13.7 G/DL (14.2-18.0); LYMPHOCYTES % (AUTO) 34.4 % (20.0-45.0); MEAN CORPUSCULAR VOLUME 89 FL (80-99); MONOCYTES % (AUTO) 9.2 % (1.0-10.0); NEUTROPHILS % (AUTO) 53.5 % (45.0-75.0); PLATELET COUNT 116 K/UL (150-450); RED BLOOD COUNT 4.31 M/UL (4.70-6.10); RED CELL DISTRIBUTION WIDTH 11.3 % (11.6-14.8); WHITE BLOOD COUNT 3.9 K/UL (4.8-10.8)
[2019-12-23] MEDS: Sucralfate 1gm tab ORAL SCH ×6 (06:29→20:23)
[2019-12-23 06:46] LABS: ALANINE AMINOTRANSFERASE 114 U/L (12-78); ALBUMIN 3.2 G/DL (3.4-5.0); ALBUMIN/GLOBULIN RATIO 0.9 (1.0-2.7); ALKALINE PHOSPHATASE 46 U/L (46-116); AMYLASE 65 U/L (25-115); ANION GAP 14 mmol/L (5-15); ASPARTATE AMINO TRANSFERASE 97 U/L (15-37); BILIRUBIN,TOTAL 0.3 MG/DL (0.2-1.0); BLOOD UREA NITROGEN 18 mg/dL (7-18); CALCIUM 7.1 MG/DL (8.5-10.1); CARBON DIOXIDE 20 MMOL/L (21-32); CHLORIDE 106 MMOL/L (98-107); POTASSIUM 3.7 MMOL/L (3.5-5.1); SODIUM 140 MMOL/L (136-145)
--- NOTE | 2019-12-23 07:20 | NUR ---
NURSE NOTES: Received patient from ROLO Oconnor. Patient is aox4, and resting in bed. Patient is on room air tolerating well with O2 saturation of 100%. Patient is showing SR on the monitor of a HR of 72 no cardiac distress noted at this time. Patient is ambulatory with a steady gait. Patient states he has diarrhea. Bed is in lowest position, alarmed and locked. Optimal HOB placement. Side Rails x2, and call light is within reach. Will continue to monitor. Addendum: 12/23/19 at 0854 by Letty Sanabria RN NURSE NOTES: Patient has a L AC 20g running NS at 75ml/hr. IV patent and flushing. No s/s of redness or leaking at the IV site.
--- NOTE | 2019-12-23 07:20 | NUR ---
HAND-OFF: Report given to ROLO Saenz.
--- NOTE | 2019-12-23 07:45 | Consultation ---
DATE OF CONSULTATION: 12/22/2019 CONSULTING PHYSICIAN: Jose Roberto Ruff M.D. CHIEF COMPLAINT: Abdominal pain and diarrhea. HISTORY OF PRESENT ILLNESS: This is a 69-year-old male with past medical history of HIV, on medication, apparently treated and the viral load has been 0, presented to the hospital with more numerous complaints. From GI standpoint, the patient is complaining of abdominal pain and diarrhea. Since admission, the patient had laboratory workup and CT workup, which did not show any obvious acute findings. CT showed evidence of fatty liver, history of cholecystectomy, and diverticulosis. Labs showed mild transaminitis, but the patient is complaining of some diarrhea. PAST MEDICAL HISTORY: 1. Hypertension. 2. Diabetes. 3. HIV. 4. Cellulitis of lower extremity. 5. Fatty liver. 6. History of cholecystectomy. 7. Diverticulosis. ALLERGIES: Allergy to multiple medications, please see the chart. PAST SURGICAL HISTORY: Cholecystectomy. REVIEW OF SYSTEMS: A 10-point review of systems was performed and pertinent positive positives in HPI. PHYSICAL EXAMINATION: VITAL SIGNS: Temperature 96.8, pulse 76, respirations 20, and blood pressure 132/83. HEENT: Normocephalic and atraumatic. Sclerae anicteric. NECK: Supple. No evidence of obvious adenopathy. CARDIOVASCULAR: Regular rate and rhythm. Plus S1 and S2. LUNGS: Decreased breath sounds bilaterally on the supine exam. ABDOMEN: Soft, nontender. No rebound. No guarding. No peritoneal sign. EXTREMITIES: No cyanosis, no clubbing, no edema. LABORATORY DATA: White count 6.2, hemoglobin 13, hematocrit 38, and platelet count 105,000. Chem-7, sodium is 140, potassium 3.6, BUN 44, and creatinine 1.6. Liver function, AST of 123, ALT of 132. CT of the abdomen and pelvis was reviewed and pertinent positive as dictated in HPI. ASSESSMENT: PROBLEM LIST: 1. Diabetes. 2. HIV. 3. Hypertension. 4. Renal insufficiency. 5. Abnormal liver function tests. 6. Fatty liver. 7. History of cholecystectomy. 8. Diverticulosis. PLAN: We are going to send the stool studies to rule out infection. We are going to order abdominal ultrasound for further evaluation of abnormal liver function tests and abdominal pain. Repeat labs tomorrow including CBC, CMP, amylase, and lipase. We will make further recommendation as we go along. Jose Roberto Ruff M.D. DR: OWEN JOB#: [id number] CC:
[2019-12-23 08:00] VITALS: BP 98/54
--- NOTE | 2019-12-23 08:01 | General Progress Note ---
Assessment/Plan Assessment/Plan: PROBLEM LIST: 1. Diabetes. 2. HIV. 3. Hypertension. 4. Renal insufficiency. 5. Abnormal liver function tests. 6. Fatty liver. 7. History of cholecystectomy. 8. Diverticulosis. CT and us reviewed stool studies has been ordered yesterday elevated lipase but normal amylase>> will repeat labs in am DM control LFTS>>> improving>>> neg hepatitis panel Subjective ROS Limited/Unobtainable: Yes Allergies: Coded Allergies: ABACAVIR (Verified Allergy, Unknown, 01/26/19) DIDANOSINE (Verified Allergy, Unknown, 01/26/19) EFAVIRENZ (Verified Allergy, Unknown, 01/26/19) FOSAMPRENAVIR (Verified Allergy, Unknown, 01/26/19) INDINAVIR (Verified Allergy, Unknown, 01/26/19) SULFAMETHOXAZOLE (Verified Allergy, Unknown, 01/26/19) TRIMETHOPRIM (Verified Allergy, Unknown, 01/29/09) HYDROMORPHONE (Verified Adverse Reaction, Unknown, VOMITS, 06/12/12) Objective Last 24 Hour Vital Signs Date Time Temp Pulse Resp B/P (MAP) Pulse Ox O2 Delivery O2 Flow Rate FiO2 12/23/19 04:00 72 12/23/19 04:00 96.6 72 18 106/60 (75) 100 12/23/19 00:00 96.7 75 18 114/64 (81) 100 12/23/19 00:00 75 12/22/19 21:00 Room Air 12/22/19 20:00 96.8 75 20 110/60 (77) 99 12/22/19 20:00 77 12/22/19 16:00 97.2 75 20 102/59 (73) 99 12/22/19 12:00 97.0 73 20 126/63 (84) 100 12/22/19 09:00 Room Air 12/22/19 08:30 Room Air 12/22/19 08:25 96.8 76 20 133/83 (100) 100 Intake and Output 12/22/19 12/23/19 19:00 07:00 Intake Total 475 ml 1530 ml Balance 475 ml 1530 ml Intake Oral 400 ml 300 ml IV Total 75 ml 1230 ml # Voids 4 2 # Bowel Movements 8 3 Laboratory Tests 12/23/19 05:30: White Blood Count [Pending], Red Blood Count 4.31L, Hemoglobin 13.7L, Hematocrit 38.6L, Mean Corpuscular Volume 89, Mean Corpuscular Hemoglobin 31.8H , Mean Corpuscular Hemoglobin Concent 35.6, Red Cell Distribution Width 11.3L, Platelet Count 116L, Mean Platelet Volume 7.0, Neutrophils (%) (Auto) 53.5, Lymphocytes (%) (Auto) 34.4, Monocytes (%) (Auto) 9.2, Eosinophils (%) (Auto) 1.9, Basophils (%) (Auto) 0.9, Lymphocytes [Pending], Sodium Level 140, Potassium Level 3.7, Chloride Level 106, Carbon Dioxide Level 20L, Anion Gap 14 , Blood Urea Nitrogen 18, Creatinine 1.0, Estimat Glomerular Filtration Rate > 60, Glucose Level 143H, Calcium Level 7.1L, Total Bilirubin 0.3, Aspartate Amino Transf (AST/SGOT) 97H, Alanine Aminotransferase (ALT/SGPT) 114H, Alkaline Phosphatase 46, Total Protein 6.7, Albumin 3.2L, Globulin 3.5, Albumin/Globulin Ratio 0.9L, Amylase Level 65, Lipase 517H, Percent CD3 Cells [Pending], Absolute CD3 Count [Pending], Percent CD4 Cells [Pending], Absolute CD4 Count [ Pending], T-Lymphocyte CD4/CD8 Ratio [Pending], Percent CD8 Cells [Pending], Absolute CD8 Count [Pending] Height (Feet): 5 Height (Inches): 7.00 Weight (Pounds): 222 General Appearance: alert EENT: normal ENT inspection Neck: supple Cardiovascular: normal rate Respiratory/Chest: decreased breath sounds Abdomen: normal bowel sounds, non tender, soft Extremities: non-tender Jose Roberto Ruff MD Dec 23, 2019 08:01
[2019-12-23] MEDS: JULUCA ORAL SCH (08:33)
[2019-12-23] MEDS: Xarelto 10mg tab ORAL SCH (08:33)
[2019-12-23] MEDS: Montelukast 10mg tablet ORAL SCH (08:33)
[2019-12-23] MEDS: Tamsulosin 0.4mg cap ORAL SCH (08:34)
[2019-12-23] MEDS: Aspirin Baby 81mg ORAL SCH (08:34)
[2019-12-23] MEDS: Docusate 100mg cap ORAL SCH ×2 (08:35→20:24)
[2019-12-23] MEDS: Heparin 5000 units/ml inj SUBQ SCH (08:36)
--- NOTE | 2019-12-23 09:51 | NUR ---
NURSE NOTES: Notified Dr. Cervantes of clarification of Heparin and Xarelto order. Will process orders.
[2019-12-23] MEDS ORDERED: Albuterol 90mcg Inhaler 8gm INH PRN (10:00)
--- NOTE | 2019-12-23 11:14 | Nephrology Progress Note ---
Assessment/Plan Plan #acute kidney injury likely due to pre-renal azotemia in the setting of sepsis #lactic acidosis- resolved # HIV #HTN #DM #BPH - DC IVF - on abx - ceftriaxone and azithro - hold lisinopril for now - hold metformin for now - continue flomax - avoid nephrotoxins - avoid NSAIDs - check labs tomorrow Subjective ROS Limited/Unobtainable: No Interval Events/Complaints Cr improved Constitutional: Reports: no symptoms HEENT: Reports: no symptoms Neurologic/Psychiatric: Reports: no symptoms Subjective Cr down to 1.0 feeling better today no diarrhea Objective Objective Last 24 Hour Vital Signs Date Time Temp Pulse Resp B/P (MAP) Pulse Ox O2 Delivery O2 Flow Rate FiO2 12/23/19 08:00 72 12/23/19 08:00 97.7 72 18 98/54 (69) 100 12/23/19 04:00 72 12/23/19 04:00 96.6 72 18 106/60 (75) 100 12/23/19 00:00 96.7 75 18 114/64 (81) 100 12/23/19 00:00 75 12/22/19 21:00 Room Air 12/22/19 20:00 96.8 75 20 110/60 (77) 99 12/22/19 20:00 77 12/22/19 16:00 97.2 75 20 102/59 (73) 99 12/22/19 12:00 97.0 73 20 126/63 (84) 100 Intake and Output 12/22/19 12/23/19 19:00 07:00 Intake Total 475 ml 1530 ml Balance 475 ml 1530 ml Intake Oral 400 ml 300 ml IV Total 75 ml 1230 ml # Voids 4 2 # Bowel Movements 8 3 Laboratory Tests 12/23/19 05:30: White Blood Count [Pending], Red Blood Count 4.31L, Hemoglobin 13.7L, Hematocrit 38.6L, Mean Corpuscular Volume 89, Mean Corpuscular Hemoglobin 31.8H , Mean Corpuscular Hemoglobin Concent 35.6, Red Cell Distribution Width 11.3L, Platelet Count 116L, Mean Platelet Volume 7.0, Neutrophils (%) (Auto) 53.5, Lymphocytes (%) (Auto) 34.4, Monocytes (%) (Auto) 9.2, Eosinophils (%) (Auto) 1.9, Basophils (%) (Auto) 0.9, Lymphocytes [Pending], Sodium Level 140, Potassium Level 3.7, Chloride Level 106, Carbon Dioxide Level 20L, Anion Gap 14 , Blood Urea Nitrogen 18, Creatinine 1.0, Estimat Glomerular Filtration Rate > 60, Glucose Level 143H, Calcium Level 7.1L, Total Bilirubin 0.3, Aspartate Amino Transf (AST/SGOT) 97H, Alanine Aminotransferase (ALT/SGPT) 114H, Alkaline Phosphatase 46, Total Protein 6.7, Albumin 3.2L, Globulin 3.5, Albumin/Globulin Ratio 0.9L, Amylase Level 65, Lipase 517H, Percent CD3 Cells [Pending], Absolute CD3 Count [Pending], Percent CD4 Cells [Pending], Absolute CD4 Count [ Pending], T-Lymphocyte CD4/CD8 Ratio [Pending], Percent CD8 Cells [Pending], Absolute CD8 Count [Pending] Height (Feet): 5 Height (Inches): 7.00 Weight (Pounds): 222 Objective General Appearance: WD/WN, no apparent distress Lines, tubes and drains: peripheral HEENT: normocephalic, atraumatic Neck: non-tender, supple Respiratory/Chest: chest wall non-tender, lungs clear Cardiovascular/Chest: normal peripheral pulses, normal rate, regular rhythm Abdomen: normal bowel sounds, non tender, soft Neurologic: alert, oriented x 3 Antoine Martinez M.D. Dec 23, 2019 11:14
[2019-12-23 12:02] VITALS: BP 114/71
--- NOTE | 2019-12-23 12:35 | NUR ---
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 96.7 HR 75 RR 18 B/P 98/54 RA O2 SAT @ 98% WBC 3.9 AST 97 ALT 114 COVID-19 PENDING IS: ZITHROMAX IV CEFTRIAXONE IV ALB HHN DROPLET ISOLATION STEP DOWN STATUS STEP DOWN STATUS
--- NOTE | 2019-12-23 13:13 | General Progress Note ---
Assessment/Plan Assessment/Plan: 69 year old man with HIV,hypertension, COPD, diabetes, lymphoma, BPH who presents to the ER with complaints of abdominal discomfort and persistent diarrhea, found to have YRN. #Sepsis #CAP #Abdominal pain, N/V, diarrhea, negative CT A/P and US abd #AIDS -continue inpatient medical care -pending stool studies, C. diff, culture, O&P -follow up COVID19 testing -GI and ID following -continue broad spectrum antibiotics for now -follow up blood cultures -continue home ART #YRN, resolved -stop IV hydration -hold ACEI, diuretics, NSAIDS -Nephrology consult appreciated #COPD -not in acute exacerbation -Duoneb prn #BPH -cont Proscar and Flomax -monitor urine output #DM type 2 -metformin on hold -diabetic diet -ISS I spent 35 minutes on this patient's case, and >50% was dedicated to counseling and/or care coordination. Subjective Date patient seen: Dec 23, 2019 Time patient seen: 13:02 ROS Limited/Unobtainable: No Constitutional: Denies: chills, fever Cardiovascular: Denies: chest pain Respiratory: Denies: cough Gastrointestinal/Abdominal: Reports: diarrhea; Denies: abdomen distended, abdominal pain, vomiting Allergies: Coded Allergies: ABACAVIR (Verified Allergy, Unknown, 01/26/19) DIDANOSINE (Verified Allergy, Unknown, 01/26/19) EFAVIRENZ (Verified Allergy, Unknown, 01/26/19) FOSAMPRENAVIR (Verified Allergy, Unknown, 01/26/19) INDINAVIR (Verified Allergy, Unknown, 01/26/19) SULFAMETHOXAZOLE (Verified Allergy, Unknown, 01/26/19) TRIMETHOPRIM (Verified Allergy, Unknown, 01/29/09) HYDROMORPHONE (Verified Adverse Reaction, Unknown, VOMITS, 06/12/12) Subjective Follow up for sepsis, CAP, YRN, lactic acidosis, abdominal pain and diarrhea. persistent diarrhea but renal function improved. Objective Last 24 Hour Vital Signs Date Time Temp Pulse Resp B/P (MAP) Pulse Ox O2 Delivery O2 Flow Rate FiO2 12/23/19 12:02 98.1 74 20 114/71 (85) 100 12/23/19 08:00 72 12/23/19 08:00 97.7 72 18 98/54 (69) 100 12/23/19 04:00 72 12/23/19 04:00 96.6 72 18 106/60 (75) 100 12/23/19 00:00 96.7 75 18 114/64 (81) 100 12/23/19 00:00 75 12/22/19 21:00 Room Air 12/22/19 20:00 96.8 75 20 110/60 (77) 99 12/22/19 20:00 77 12/22/19 16:00 97.2 75 20 102/59 (73) 99 Intake and Output 12/22/19 12/23/19 19:00 07:00 Intake Total 475 ml 1530 ml Balance 475 ml 1530 ml Intake Oral 400 ml 300 ml IV Total 75 ml 1230 ml # Voids 4 2 # Bowel Movements 8 3 Laboratory Tests 12/23/19 05:30: White Blood Count [Pending], Red Blood Count 4.31L, Hemoglobin 13.7L, Hematocrit 38.6L, Mean Corpuscular Volume 89, Mean Corpuscular Hemoglobin 31.8H , Mean Corpuscular Hemoglobin Concent 35.6, Red Cell Distribution Width 11.3L, Platelet Count 116L, Mean Platelet Volume 7.0, Neutrophils (%) (Auto) 53.5, Lymphocytes (%) (Auto) 34.4, Monocytes (%) (Auto) 9.2, Eosinophils (%) (Auto) 1.9, Basophils (%) (Auto) 0.9, Lymphocytes [Pending], Sodium Level 140, Potassium Level 3.7, Chloride Level 106, Carbon Dioxide Level 20L, Anion Gap 14 , Blood Urea Nitrogen 18, Creatinine 1.0, Estimat Glomerular Filtration Rate > 60, Glucose Level 143H, Calcium Level 7.1L, Total Bilirubin 0.3, Aspartate Amino Transf (AST/SGOT) 97H, Alanine Aminotransferase (ALT/SGPT) 114H, Alkaline Phosphatase 46, Total Protein 6.7, Albumin 3.2L, Globulin 3.5, Albumin/Globulin Ratio 0.9L, Amylase Level 65, Lipase 517H, Percent CD3 Cells [Pending], Absolute CD3 Count [Pending], Percent CD4 Cells [Pending], Absolute CD4 Count [ Pending], T-Lymphocyte CD4/CD8 Ratio [Pending], Percent CD8 Cells [Pending], Absolute CD8 Count [Pending] Height (Feet): 5 Height (Inches): 7.00 Weight (Pounds): 222 General Appearance: alert Neck: normal alignment, supple Cardiovascular: normal rate, regular rhythm Respiratory/Chest: lungs clear, normal breath sounds, no respiratory distress Abdomen: non tender, soft Neurologic: redeye gunner II-XII grossly normal, no motor/sensory deficits, alert, oriented x 3 Ferdinand Chawla MD Dec 23, 2019 13:13
--- NOTE | 2019-12-23 13:20 | NUR ---
NURSE NOTES: Patient is AOx4. Patient is on room air and tolerating well. Patient is clean and dry . Patient Repositions self. Patient eating CCHO medium and tolerating well. Bed is in lowest position, alarmed and locked. Side Rails x2, Optimal HOB placement. Call light is within reach.
--- NOTE | 2019-12-23 14:14 | NUR ---
NURSE NOTES: Received report ROLO Saenz,patient resting ,stable,on monitoring tech-SR,was tested for COVID-19,continue to observe droplet and contact isolation,continue care
--- NOTE | 2019-12-23 14:20 | NUR ---
HAND-OFF: Report given to ROLO Watters. Patient in stable condition.
--- NOTE | 2019-12-23 15:30 | NUR ---
HAND-OFF: Report given to ROLO Jean.
--- NOTE | 2019-12-23 15:30 | NUR ---
NURSE NOTES: Received report from ROLO Watters. Patient is resting in bed, in stable condition. Watching TV. Denies any presence of pain or discomfort at this time. Bed is in lowest position, brakes engaged. Call light is kept within easy reach. Will continue to monitor patient.
[2019-12-23 16:00] VITALS: BP 125/70
[2019-12-23] MEDS: NovoLOG Insulin Flexpen SUBQ SCH ×2 (16:30→20:23)
--- NOTE | 2019-12-23 17:00 | NUR ---
NURSE NOTES: Pt states he feels anxious, no PRN medication for anxiety noted, patient states they take Ativan 2 mg PO Q4HR PRN for anxiety. Contacted and informed Dr. Santamaria of situation. Dr. Santamaria acknowledged and ordered Ativan 2 mg PO Q4HR PRN for anxiety. Order entered, noted, and carried out. Will continue to monitor patient.
[2019-12-23] MEDS: LORazepam 1mg tab ORAL PRN (17:16)
--- NOTE | 2019-12-23 19:19 | NUR ---
HAND-OFF: Report given to ROLO Knox. This nurse and ROLO Knox reviewed patient's orders together. Noted order for COVID-19 swab still active since 12/20. This nurse followed up with lab personnel, Dr. Jimenez, regarding swab. Per Dr. Jimenez verified swab was not done on 12/20 due to shortage of kits. Per Dr. Jimenez, COVID-19 swab kits available at ER at this time to be used. Noted. Made charge nurse aware. Night nurse aware.
--- NOTE | 2019-12-23 19:20 | NUR ---
NURSE NOTES: Endorsement received from ROLO Jean. On droplet and contact precautions. Patient on room air. No shortness of breath. Awake and oriented x4. [place]o speaking. No complains of pain or discomfort. With left AC g20 saline lock. Bed locked and in low position. Call light within visible reach.
[2019-12-23 20:00] VITALS: BP 125/80
--- NOTE | 2019-12-23 20:23 | NUR ---
NURSE NOTES: Sucralfate was given late due to as per morning shift nurse, patient was just ate just before the medication was due.
[2019-12-24] VITALS: BP 118/76
[2019-12-24] MEDS: LORazepam 1mg tab ORAL PRN ×2 (01:35→12:27)
--- NOTE | 2019-12-24 02:00 | NUR ---
NURSE NOTES: Patient awake. Requested for Zofran and Ativan. As per him he gets anxious at times. Reported improvement regarding his diarrhea. No fever, no shortness of breath.
[2019-12-24 04:00] VITALS: BP 113/54
[2019-12-24] MEDS: Azithromycin 500 MG in D5W 275 ML IV SCH (04:14)
[2019-12-24 05:11] LABS: BASOPHILS % (AUTO) 0.6 % (0.0-2.0); EOSINOPHILS % (AUTO) 1.9 % (0.0-3.0); HEMATOCRIT 39.2 % (42.0-52.0); HEMOGLOBIN 14.3 G/DL (14.2-18.0); LYMPHOCYTES % (AUTO) 30.8 % (20.0-45.0); MEAN CORPUSCULAR VOLUME 87 FL (80-99); MONOCYTES % (AUTO) 10.4 % (1.0-10.0); NEUTROPHILS % (AUTO) 56.2 % (45.0-75.0); PLATELET COUNT 119 K/UL (150-450); RED CELL DISTRIBUTION WIDTH 10.7 % (11.6-14.8); WHITE BLOOD COUNT 3.6 K/UL (4.8-10.8)
[2019-12-24 05:28] LABS: PHOSPHORUS 2.1 MG/DL (2.5-4.9)
[2019-12-24 05:39] LABS: ALANINE AMINOTRANSFERASE 108 U/L (12-78); ALBUMIN 3.5 G/DL (3.4-5.0); ALKALINE PHOSPHATASE 45 U/L (46-116); AMYLASE 79 U/L (25-115); ANION GAP 12 mmol/L (5-15); ASPARTATE AMINO TRANSFERASE 74 U/L (15-37); BILIRUBIN,TOTAL 0.4 MG/DL (0.2-1.0); BLOOD UREA NITROGEN 12 mg/dL (7-18); CALCIUM 7.4 MG/DL (8.5-10.1); CARBON DIOXIDE 23 MMOL/L (21-32); CHLORIDE 109 MMOL/L (98-107); POTASSIUM 3.5 MMOL/L (3.5-5.1); SODIUM 144 MMOL/L (136-145)
[2019-12-24] MEDS: NovoLOG Insulin Flexpen SUBQ SCH ×4 (06:06→20:35)
[2019-12-24] MEDS: Sucralfate 1gm tab ORAL SCH ×5 (06:07→18:34)
[2019-12-24] MEDS: cefTRIAXone 1 GM in D5W 55 ML IV SCH (06:07)
--- NOTE | 2019-12-24 07:24 | NUR ---
HAND-OFF: Report given to ROLO Saenz.
--- NOTE | 2019-12-24 07:30 | NUR ---
NURSE NOTES: Received patient from ROLO Aguilar. Patient is sleeping in bed, easily arousable. Patient is AOx4 and speaks [place]. Patient is on Room air and tolerating well. VSS. Patient is showing SR on the director compensation. No s/s of acute distress noted. IV site in L AC 20 g SL flushing and patent. No s/s of redness or infiltration at the site. Patient ambulatory with steady gait. Patient states "im having diarrhea and its like water". Bed is in lowest position, alarmed and locked. Side rails x2, and call light placed within reach. Will continue to monitor.
[2019-12-24 08:00] VITALS: BP 118/74
--- NOTE | 2019-12-24 08:54 | Diagnostic Imaging Report ---
EXAM: XR Chest, 1 View CLINICAL HISTORY: INFECT TECHNIQUE: Frontal view of the chest. COMPARISON: Chest x-ray 12/21/19 FINDINGS: Lungs: Mild interstitial/vascular prominence. Hypoventilatory lungs. Pleural space: Unremarkable. No pneumothorax. Heart: Cardiomegaly. Mediastinum: Unremarkable. Bones/joints: Unremarkable. IMPRESSION: Cardiomegaly. Mild interstitial/vascular prominence. Query mild CHF.
[2019-12-24] MEDS: Docusate 100mg cap ORAL SCH (09:00)
--- NOTE | 2019-12-24 09:20 | NUR ---
NURSE NOTES: Spoke to Dr. Ruff about patient having diarrhea. Will follow current orders.
--- NOTE | 2019-12-24 09:21 | General Progress Note ---
Assessment/Plan Assessment/Plan: PROBLEM LIST: 1. Diabetes. 2. HIV. 3. Hypertension. 4. Renal insufficiency. 5. Abnormal liver function tests. 6. Fatty liver. 7. History of cholecystectomy. 8. Diverticulosis 9. Diarrhea CT and us reviewed stool studies >>> NEG >>> start prn imodium elevated lipase but normal amylase>> will repeat labs in am DM control LFTS>>> improving>>> neg hepatitis panel Subjective ROS Limited/Unobtainable: Yes Allergies: Coded Allergies: ABACAVIR (Verified Allergy, Unknown, 01/26/19) DIDANOSINE (Verified Allergy, Unknown, 01/26/19) EFAVIRENZ (Verified Allergy, Unknown, 01/26/19) FOSAMPRENAVIR (Verified Allergy, Unknown, 01/26/19) INDINAVIR (Verified Allergy, Unknown, 01/26/19) SULFAMETHOXAZOLE (Verified Allergy, Unknown, 01/26/19) TRIMETHOPRIM (Verified Allergy, Unknown, 01/29/09) HYDROMORPHONE (Verified Adverse Reaction, Unknown, VOMITS, 06/12/12) Subjective diarrhea Objective Last 24 Hour Vital Signs Date Time Temp Pulse Resp B/P (MAP) Pulse Ox O2 Delivery O2 Flow Rate FiO2 12/24/19 08:00 Room Air 12/24/19 04:00 Room Air 12/24/19 04:00 97.9 72 20 113/54 (73) 100 12/24/19 04:00 76 12/24/19 00:00 Room Air 12/24/19 00:00 96.7 75 20 118/76 (90) 100 12/24/19 00:00 68 12/23/19 20:00 Room Air 12/23/19 20:00 70 12/23/19 20:00 96.6 75 20 125/80 (95) 100 12/23/19 16:00 96.9 73 20 125/70 (88) 100 12/23/19 16:00 72 12/23/19 12:02 98.1 74 20 114/71 (85) 100 12/23/19 12:00 74 Intake and Output 12/23/19 12/24/19 19:00 07:00 Intake Total 500 ml 275 ml Balance 500 ml 275 ml Intake Oral 500 ml IV Total 275 ml # Voids 2 3 # Bowel Movements 1 5 Laboratory Tests 12/24/19 04:00: White Blood Count 3.6L, Red Blood Count 4.50L, Hemoglobin 14.3, Hematocrit 39.2L , Mean Corpuscular Volume 87, Mean Corpuscular Hemoglobin 31.7H, Mean Corpuscular Hemoglobin Concent 36.4H, Red Cell Distribution Width 10.7L, Platelet Count 119L, Mean Platelet Volume 6.6, Neutrophils (%) (Auto) 56.2, Lymphocytes (%) (Auto) 30.8, Monocytes (%) (Auto) 10.4H, Eosinophils (%) (Auto) 1.9, Basophils (%) (Auto) 0.6, Sodium Level 144, Potassium Level 3.5, Chloride Level 109H, Carbon Dioxide Level 23, Anion Gap 12, Blood Urea Nitrogen 12, Creatinine 1.0, Estimat Glomerular Filtration Rate > 60, Glucose Level 136H, Calcium Level 7.4L, Phosphorus Level 2.1L, Magnesium Level 2.3, Total Bilirubin 0.4, Aspartate Amino Transf (AST/SGOT) 74H, Alanine Aminotransferase (ALT/SGPT) 108H, Alkaline Phosphatase 45L, Total Protein 6.9, Albumin 3.5, Globulin 3.4, Albumin/Globulin Ratio 1.0, Amylase Level 79, Lipase 662H Height (Feet): 5 Height (Inches): 7.00 Weight (Pounds): 222 General Appearance: alert EENT: normal ENT inspection Neck: supple Cardiovascular: normal rate Respiratory/Chest: decreased breath sounds Abdomen: normal bowel sounds, non tender, soft Extremities: non-tender Jose Roberto Ruff MD Dec 24, 2019 09:21
[2019-12-24] MEDS: Tamsulosin 0.4mg cap ORAL SCH (09:43)
[2019-12-24] MEDS: JULUCA ORAL SCH (09:43)
[2019-12-24] MEDS: Xarelto 10mg tab ORAL SCH (09:43)
[2019-12-24] MEDS: Montelukast 10mg tablet ORAL SCH (09:43)
[2019-12-24] MEDS: Aspirin Baby 81mg ORAL SCH (09:43)
[2019-12-24] MEDS ORDERED: Tubing IV Secondary IV ONE (10:12)
[2019-12-24 11:10] VITALS: BP 115/74
--- NOTE | 2019-12-24 11:46 | Nephrology Progress Note ---
Assessment/Plan Plan #acute kidney injury likely due to pre-renal azotemia in the setting of sepsis #lactic acidosis- resolved # HIV #HTN #DM #BPH - DC IVF - on abx - ceftriaxone and azithro - hold lisinopril for now - hold metformin for now - continue flomax - avoid nephrotoxins - avoid NSAIDs - check labs tomorrow Subjective Subjective Cr down to 1.0 phos low - repleted feeling better today no diarrhea Objective Objective Last 24 Hour Vital Signs Date Time Temp Pulse Resp B/P (MAP) Pulse Ox O2 Delivery O2 Flow Rate FiO2 12/24/19 11:10 97.7 74 20 115/74 (88) 100 12/24/19 08:00 97.7 68 20 118/74 (89) 100 12/24/19 08:00 67 12/24/19 08:00 Room Air 12/24/19 04:00 Room Air 12/24/19 04:00 97.9 72 20 113/54 (73) 100 12/24/19 04:00 76 12/24/19 00:00 Room Air 12/24/19 00:00 96.7 75 20 118/76 (90) 100 12/24/19 00:00 68 12/23/19 20:00 Room Air 12/23/19 20:00 70 12/23/19 20:00 96.6 75 20 125/80 (95) 100 12/23/19 16:00 96.9 73 20 125/70 (88) 100 12/23/19 16:00 72 12/23/19 12:02 98.1 74 20 114/71 (85) 100 12/23/19 12:00 74 Intake and Output 12/23/19 12/24/19 19:00 07:00 Intake Total 500 ml 275 ml Balance 500 ml 275 ml Intake Oral 500 ml IV Total 275 ml # Voids 2 3 # Bowel Movements 1 5 Laboratory Tests 12/24/19 04:00: White Blood Count 3.6L, Red Blood Count 4.50L, Hemoglobin 14.3, Hematocrit 39.2L , Mean Corpuscular Volume 87, Mean Corpuscular Hemoglobin 31.7H, Mean Corpuscular Hemoglobin Concent 36.4H, Red Cell Distribution Width 10.7L, Platelet Count 119L, Mean Platelet Volume 6.6, Neutrophils (%) (Auto) 56.2, Lymphocytes (%) (Auto) 30.8, Monocytes (%) (Auto) 10.4H, Eosinophils (%) (Auto) 1.9, Basophils (%) (Auto) 0.6, Sodium Level 144, Potassium Level 3.5, Chloride Level 109H, Carbon Dioxide Level 23, Anion Gap 12, Blood Urea Nitrogen 12, Creatinine 1.0, Estimat Glomerular Filtration Rate > 60, Glucose Level 136H, Calcium Level 7.4L, Phosphorus Level 2.1L, Magnesium Level 2.3, Total Bilirubin 0.4, Aspartate Amino Transf (AST/SGOT) 74H, Alanine Aminotransferase (ALT/SGPT) 108H, Alkaline Phosphatase 45L, Total Protein 6.9, Albumin 3.5, Globulin 3.4, Albumin/Globulin Ratio 1.0, Amylase Level 79, Lipase 662H Height (Feet): 5 Height (Inches): 7.00 Weight (Pounds): 222 Objective General Appearance: WD/WN, no apparent distress Lines, tubes and drains: peripheral HEENT: normocephalic, atraumatic Neck: non-tender, supple Respiratory/Chest: chest wall non-tender, lungs clear Cardiovascular/Chest: normal peripheral pulses, normal rate, regular rhythm Abdomen: normal bowel sounds, non tender, soft Neurologic: alert, oriented x 3 Antoine Martinez M.D. Dec 24, 2019 11:46
--- NOTE | 2019-12-24 13:51 | General Progress Note ---
Assessment/Plan Assessment/Plan: 69 year old man with HIV,hypertension, COPD, diabetes, lymphoma, BPH who presents to the ER with complaints of abdominal discomfort and persistent diarrhea, found to have YRN. #Sepsis - resolved #CAP #Abdominal pain, N/V, diarrhea, negative CT A/P and US abd #AIDS -continue inpatient medical care -continue broad spectrum antibiotics for now -BCx NGTD -continue home ART -follow up COVID19 testing -GI following -ID following: cont. abx azithromycin, ceftriaxone #Transaminitis #Elevated lipase -normal amylase -Hep panel negative -GI following: trend LFTs #loose stools -C. diff, culture, O&P negative -colace to PRN -immodium -GI following, recs appreciated #YRN, resolved -stop IV hydration -hold ACEI, diuretics, NSAIDS -avoid nephrotoxins -Nephrology following: check AM labs #COPD -not in acute exacerbation -Duoneb prn #BPH -cont Proscar and Flomax -monitor urine output #DM type 2 -metformin on hold -diabetic diet -ISS I spent 35 minutes on this patient's case, and >50% was dedicated to counseling and/or care coordination. An additional 40 mins was spent with chart review. Subjective Allergies: Coded Allergies: ABACAVIR (Verified Allergy, Unknown, 01/26/19) DIDANOSINE (Verified Allergy, Unknown, 01/26/19) EFAVIRENZ (Verified Allergy, Unknown, 01/26/19) FOSAMPRENAVIR (Verified Allergy, Unknown, 01/26/19) INDINAVIR (Verified Allergy, Unknown, 01/26/19) SULFAMETHOXAZOLE (Verified Allergy, Unknown, 01/26/19) TRIMETHOPRIM (Verified Allergy, Unknown, 01/29/09) HYDROMORPHONE (Verified Adverse Reaction, Unknown, VOMITS, 06/12/12) Subjective Follow up for sepsis, CAP, YRN, lactic acidosis, abdominal pain and diarrhea. Persistent diarrhea but renal function improved No acute events overnight. Denies abdominal cramping. No F/C, cough. Objective Last 24 Hour Vital Signs Date Time Temp Pulse Resp B/P (MAP) Pulse Ox O2 Delivery O2 Flow Rate FiO2 12/24/19 12:00 Room Air 12/24/19 12:00 74 12/24/19 11:10 97.7 74 20 115/74 (88) 100 12/24/19 08:00 97.7 68 20 118/74 (89) 100 12/24/19 08:00 67 12/24/19 08:00 Room Air 12/24/19 04:00 Room Air 12/24/19 04:00 97.9 72 20 113/54 (73) 100 12/24/19 04:00 76 12/24/19 00:00 Room Air 12/24/19 00:00 96.7 75 20 118/76 (90) 100 12/24/19 00:00 68 12/23/19 20:00 Room Air 12/23/19 20:00 70 12/23/19 20:00 96.6 75 20 125/80 (95) 100 12/23/19 16:00 96.9 73 20 125/70 (88) 100 12/23/19 16:00 72 Intake and Output 12/23/19 12/24/19 19:00 07:00 Intake Total 500 ml 275 ml Balance 500 ml 275 ml Intake Oral 500 ml IV Total 275 ml # Voids 2 3 # Bowel Movements 1 5 Laboratory Tests 12/24/19 04:00: White Blood Count 3.6L, Red Blood Count 4.50L, Hemoglobin 14.3, Hematocrit 39.2L , Mean Corpuscular Volume 87, Mean Corpuscular Hemoglobin 31.7H, Mean Corpuscular Hemoglobin Concent 36.4H, Red Cell Distribution Width 10.7L, Platelet Count 119L, Mean Platelet Volume 6.6, Neutrophils (%) (Auto) 56.2, Lymphocytes (%) (Auto) 30.8, Monocytes (%) (Auto) 10.4H, Eosinophils (%) (Auto) 1.9, Basophils (%) (Auto) 0.6, Sodium Level 144, Potassium Level 3.5, Chloride Level 109H, Carbon Dioxide Level 23, Anion Gap 12, Blood Urea Nitrogen 12, Creatinine 1.0, Estimat Glomerular Filtration Rate > 60, Glucose Level 136H, Calcium Level 7.4L, Phosphorus Level 2.1L, Magnesium Level 2.3, Total Bilirubin 0.4, Aspartate Amino Transf (AST/SGOT) 74H, Alanine Aminotransferase (ALT/SGPT) 108H, Alkaline Phosphatase 45L, Total Protein 6.9, Albumin 3.5, Globulin 3.4, Albumin/Globulin Ratio 1.0, Amylase Level 79, Lipase 662H Height (Feet): 5 Height (Inches): 7.00 Weight (Pounds): 222 Objective General Appearance: alert, awake, NAD, sitting up in bed eating lunch Neck: normal alignment, supple Cardiovascular: normal rate, regular rhythm Respiratory/Chest: lungs clear, normal breath sounds, no respiratory distress Abdomen: non tender, soft Neurologic: heel molder II-XII grossly normal, no motor/sensory deficits, alert, oriented x 3 Vasquez Shah M.D. Dec 24, 2019 13:50
[2019-12-24] MEDS ORDERED: Sodium Phosphate 15 MM in NS 275 ML IVPB ONE (14:00)
--- NOTE | 2019-12-24 14:00 | NUR ---
NURSE NOTES: Patient in aox4,
--- NOTE | 2019-12-24 14:10 | NUR ---
NURSE NOTES: COVID-19 nasopharynx specimen collected and sent to lab.
[2019-12-24 16:00] VITALS: BP 109/63
--- NOTE | 2019-12-24 16:25 | NUR ---
NURSE NOTES: Patient resting in bed, easily arousable. Patient is AOx4, icelandic and romansh speaking. Patient is on room air and tolerating well. VSS. Patient states no pain. IV site L AC 20 g patent and flushing properly. no s/s of redness or infiltration at the IV site. Patient is clean and dry. Bed is in lowest position, alarmed and locked. Optimal HOB placement. Side Rails x2, and call light placed within reach will continue to monitor.
--- NOTE | 2019-12-24 18:23 | Infectious Diseases Prog Note ---
Assessment/Plan Assessment/Plan A) 1) ? cap, fevers, sepsis, rule out covid-19 pna, ? infectious diarrhea, ? c.diff., ? viral syndrome, pancreatitis 2) hiv, hx aids, cd4>500, asthma, copd, dm, bph, lymphoma, htn, nelson, ? ckd 3) allergies - sulfa, hiv medications noted, fh-nc, sh-neg, mar noted 4) notes and records noted 45 d/w RN P) 1) azithromycin, ceftriaxone 2) monitor labs, cultures, chest x-ray 3) await covid-19 testing 4) check stool studies 5) will f/u Subjective Constitutional: Reports: fatigue, other - fever curve better ; Denies: fever, chills Respiratory: Reports: shortness of breath - less Cardiovascular: Denies: chest pain Gastrointestinal/Abdominal: Reports: diarrhea; Denies: nausea, vomiting Genitourinary: Denies: dysuria, hematuria Neurologic: Denies: headache Psychiatric: Denies: depression Skin: Denies: rash Hematologic: Denies: bleeding Musculoskeletal: Denies: pain Allergies: Coded Allergies: ABACAVIR (Verified Allergy, Unknown, 01/26/19) DIDANOSINE (Verified Allergy, Unknown, 01/26/19) EFAVIRENZ (Verified Allergy, Unknown, 01/26/19) FOSAMPRENAVIR (Verified Allergy, Unknown, 01/26/19) INDINAVIR (Verified Allergy, Unknown, 01/26/19) SULFAMETHOXAZOLE (Verified Allergy, Unknown, 01/26/19) TRIMETHOPRIM (Verified Allergy, Unknown, 01/29/09) HYDROMORPHONE (Verified Adverse Reaction, Unknown, VOMITS, 06/12/12) Objective Vital Signs Last 24 Hour Vital Signs Date Time Temp Pulse Resp B/P (MAP) Pulse Ox O2 Delivery O2 Flow Rate FiO2 12/24/19 16:00 Room Air 12/24/19 16:00 97.7 70 20 109/63 (78) 100 12/24/19 16:00 72 12/24/19 12:00 Room Air 12/24/19 12:00 74 12/24/19 11:10 97.7 74 20 115/74 (88) 100 12/24/19 08:00 97.7 68 20 118/74 (89) 100 12/24/19 08:00 67 12/24/19 08:00 Room Air 12/24/19 04:00 Room Air 12/24/19 04:00 97.9 72 20 113/54 (73) 100 12/24/19 04:00 76 12/24/19 00:00 Room Air 12/24/19 00:00 96.7 75 20 118/76 (90) 100 12/24/19 00:00 68 12/23/19 20:00 Room Air 12/23/19 20:00 70 12/23/19 20:00 96.6 75 20 125/80 (95) 100 Height (Feet): 5 Height (Inches): 7.00 Weight (Pounds): 222 General Appearance: no acute distress HEENT: normocephalic, atraumatic, anicteric, mucous membranes moist Respiratory/Chest: crackles/rales, rhonchi - bilaterally Cardiovascular: normal rate, regular rhythm, no gallop/murmur, no JVD Abdomen: normal bowel sounds, soft, non tender, no organomegaly, non distended Genitourinary: other - no diehl Extremities: no cyanosis Skin: no rash Neurologic/Psychiatric: cover inspector II-XII grossly normal, alert, oriented x 3, responsive Lymphatic: no neck adenopathy Musculoskeletal: no effusion Objective CT scan abdomen and pelvis: IMPRESSION: Fatty liver. Fibrosis at the lung bases Status post cholecystectomy. Mild diverticulosis of the colon. No definite diverticulitis. Other incidental findings as above Note: Evaluation of solid organs is limited on non contrast imaging. Chest x-ray - 12/24/19 - Procedure: XRAY Chest 1v EXAM: XR Chest, 1 View CLINICAL HISTORY: INFECT TECHNIQUE: Frontal view of the chest. COMPARISON: Chest x-ray 12/21/19 FINDINGS: Lungs: Mild interstitial/vascular prominence. Hypoventilatory lungs. Pleural space: Unremarkable. No pneumothorax. Heart: Cardiomegaly. Mediastinum: Unremarkable. Bones/joints: Unremarkable. IMPRESSION: Cardiomegaly. Mild interstitial/vascular prominence. Query mild CHF. Microbiology Date/Time Source Procedure Growth Status 12/21/19 18:36 Blood Blood Culture - Preliminary NO GROWTH AFTER 48 HOURS Resulted 12/21/19 18:30 Blood Blood Culture - Preliminary NO GROWTH AFTER 48 HOURS Resulted 12/21/19 19:00 Nasal Nares - Final Complete 12/21/19 19:00 Nasal Nares - Final Complete 12/22/19 15:11 Stool Stool Culture Pending Resulted 12/22/19 15:11 Stool Clostridium difficile Toxin Assay - Final Resulted Laboratory Tests Test 12/24/19 04:00 White Blood Count 3.6 K/UL (4.8-10.8) L Red Blood Count 4.50 M/UL (4.70-6.10) L Hemoglobin 14.3 G/DL (14.2-18.0) Hematocrit 39.2 % (42.0-52.0) L Mean Corpuscular Volume 87 FL (80-99) Mean Corpuscular Hemoglobin 31.7 PG (27.0-31.0) H Mean Corpuscular Hemoglobin Concent 36.4 G/DL (32.0-36.0) H Red Cell Distribution Width 10.7 % (11.6-14.8) L Platelet Count 119 K/UL (150-450) L Mean Platelet Volume 6.6 FL (6.5-10.1) Neutrophils (%) (Auto) 56.2 % (45.0-75.0) Lymphocytes (%) (Auto) 30.8 % (20.0-45.0) Monocytes (%) (Auto) 10.4 % (1.0-10.0) H Eosinophils (%) (Auto) 1.9 % (0.0-3.0) Basophils (%) (Auto) 0.6 % (0.0-2.0) Sodium Level 144 MMOL/L (136-145) Potassium Level 3.5 MMOL/L (3.5-5.1) Chloride Level 109 MMOL/L (98-107) H Carbon Dioxide Level 23 MMOL/L (21-32) Anion Gap 12 mmol/L (5-15) Blood Urea Nitrogen 12 mg/dL (7-18) Creatinine 1.0 MG/DL (0.55-1.30) Estimat Glomerular Filtration Rate > 60 mL/min (>60) Glucose Level 136 MG/DL (74-106) H Calcium Level 7.4 MG/DL (8.5-10.1) L Phosphorus Level 2.1 MG/DL (2.5-4.9) L Magnesium Level 2.3 MG/DL (1.8-2.4) Total Bilirubin 0.4 MG/DL (0.2-1.0) Aspartate Amino Transf (AST/SGOT) 74 U/L (15-37) H Alanine Aminotransferase (ALT/SGPT) 108 U/L (12-78) H Alkaline Phosphatase 45 U/L (46-116) L Total Protein 6.9 G/DL (6.4-8.2) Albumin 3.5 G/DL (3.4-5.0) Globulin 3.4 g/dL Albumin/Globulin Ratio 1.0 (1.0-2.7) Amylase Level 79 U/L (25-115) Lipase 662 U/L (73-393) H Current Medications Medications (Trade) Dose Ordered Sig/Jose Cruz Route PRN Reason Start Time Stop Time Status Last Admin Dose Admin Acetaminophen (Tylenol) 650 mg Q4H PRN ORAL Mild Pain (Pain Scale 1-3) 12/22/19 00:00 01/21/20 00:00 12/24/19 12:26 Acetaminophen (Tylenol) 650 mg Q4H PRN ORAL fever 12/22/19 00:00 01/21/20 00:00 Albuterol Sulfate (Proventil MDI) 2 puff Q6H PRN INH Shortness of Breath 12/23/19 10:00 03/22/20 09:59 Aspirin (ASA) 81 mg DAILY ORAL 12/23/19 09:00 02/06/20 08:59 12/24/19 09:43 Azithromycin 500 mg/Dextrose 275 ml @ 275 mls/hr Q24H IV 12/22/19 05:00 12/29/19 04:59 12/24/19 04:14 Bisacodyl (Dulcolax) 10 mg DAILYPRN PRN RECTAL Constipation 12/22/19 00:00 03/21/20 00:00 Ceftriaxone Sodium 1 gm/ Dextrose 55 ml @ 110 mls/hr Q24H IV 12/22/19 06:00 12/29/19 05:59 12/24/19 06:07 Dextrose (Dextrose 50%) 25 ml Q30M PRN IV Hypoglycemia 12/23/19 13:15 03/22/20 13:14 Dextrose (Dextrose 50%) 50 ml Q30M PRN IV Hypoglycemia 12/23/19 13:15 03/22/20 13:14 Finasteride (Proscar) 5 mg DAILY ORAL 12/23/19 09:00 03/22/20 08:59 12/24/19 09:43 Gabapentin (Neurontin) 600 mg THREE TIMES A DAY ORAL 12/22/19 18:00 01/21/20 17:59 12/24/19 12:26 Insulin Aspart (NovoLOG) BEFORE MEALS AND HS SUBQ 12/23/19 16:30 03/22/20 16:29 12/24/19 06:06 Loperamide HCl (Imodium) 2 mg Q4H PRN ORAL Diarrhea 12/24/19 09:30 01/23/20 09:29 12/24/19 09:42 Lorazepam (Ativan) 2 mg Q4H PRN ORAL For Anxiety 12/23/19 17:00 12/30/19 16:59 12/24/19 12:27 Montelukast Sodium (Singulair) 10 mg DAILY ORAL 12/23/19 09:00 03/22/20 08:59 12/24/19 09:43 Ondansetron HCl (Zofran) 4 mg Q6H PRN IVP Nausea & Vomiting 12/22/19 00:00 01/21/20 00:00 12/24/19 01:46 Patient Own Medication (Patient's Own Med) 1 ea DAILY ORAL 12/22/19 20:00 01/21/20 19:59 12/24/19 09:43 Polyethylene Glycol (Miralax) 17 gm DAILYPRN PRN ORAL Constipation 12/22/19 00:00 01/21/20 00:00 Rivaroxaban (Xarelto) 10 mg DAILY ORAL 12/23/19 09:00 03/22/20 08:59 12/24/19 09:43 Sodium Phosphate 15 mm/Sodium Chloride 280 ml @ 70.273 mls/ hr ONCE ONCE IVPB 12/24/19 14:00 12/24/19 17:59 12/24/19 13:57 Sucralfate (Carafate) 1 gm FIVE TIMES A DAY ORAL 12/22/19 19:00 03/21/20 18:59 12/24/19 16:16 Tamsulosin HCl (Flomax) 0.4 mg DAILY ORAL 12/23/19 09:00 01/22/20 08:59 12/24/19 09:43 Jairo Chavez MD Dec 24, 2019 18:23
--- NOTE | 2019-12-24 19:10 | NUR ---
NURSE NOTES: pt report received from TIFFANY SETH. pt remains stable. pt is alert and oriented times 3, able to follow commands. pt is on Room air, able to follow commands. pt is on compliance monitor showing NSR no cardiac distress noted. pt bed is low, locked, armed, bed rails up times 3, call light within reach. will follow plan of care.
--- NOTE | 2019-12-24 19:28 | NUR ---
HAND-OFF: Report given to ROLO Jean. Patient in stable condition.
[2019-12-24 20:00] VITALS: BP 130/58
[2019-12-25] VITALS: BP 139/63
--- NOTE | 2019-12-25 02:15 | Consultation ---
DATE OF CONSULTATION: 12/22/2019 INFECTIOUS DISEASES CONSULTATION CONSULTING PHYSICIAN: Jairo Chavez M.D. ATTENDING PHYSICIAN: Reese Resendez M.D. REFERRING PHYSICIAN: Ferdinand Garcia M.D. REASON FOR CONSULTATION: Possible community-acquired pneumonia, possible COVID-19 pneumonia, and infection. Also, sepsis and fevers. The patient has history of HIV and AIDS. Community-acquired pneumonia. CHIEF COMPLAINT: The patient's chief complaint coming to the hospital is fevers, possible sepsis, pneumonia, rule out COVID-19 pneumonia infection. Also, chief complaint coming in is abdominal discomfort, diarrhea, and pancreatitis. HISTORY OF PRESENT ILLNESS: This is a very pleasant 69-year-old male who has history of HIV and AIDS in the past. The patient states his T-cell count is over 500. He is on antiviral therapy that he is getting from home. The patient comes in to [facility] with main complaint of fevers, diarrhea, nausea, vomiting, and abdominal pain. Lipase was elevated at 517. Lipase initially was 79. The patient had a temperature of 101.7 and chest x-ray showed edema, CHF, possible pneumonia, or infiltrates. CT scan of the abdomen and pelvis is noted. No abscess, diverticulitis, or pancreatitis mentioned. Infectious Disease consultation was requested for antibiotic management. The patient was started on Rocephin and azithromycin. He did get COVID-19 virus tested for. The patient is right now in droplet precautions for the COVID-19 isolation. MAR was noted. Notes were reviewed. The patient will be continued on Rocephin and azithromycin. REVIEW OF SYSTEMS: CONSTITUTIONAL: The patient has generalized fatigue. No focal weakness. She came in with fever and chills. No night sweats or weight loss. HEAD AND NECK: No head pain, neck pain, thrush, dysphagia, or neck stiffness. CARDIAC: No chest pain or palpitations. GASTROINTESTINAL: He had nausea, vomiting, diarrhea, and abdominal discomfort and pain. GENITOURINARY: No dysuria or frequency. PULMONARY: Mild cough and congestion, but no significant secretions. SKIN: No rash noted. EXTREMITIES: No extremity pain. NEUROLOGIC: No seizures. She has fatigue. No focal weakness. No recent travel. PAST MEDICAL HISTORY: The patient has past medical history of HIV and AIDS, CD4 count over 500. Asthma, COPD, diabetes mellitus, BPH, lymphoma, hypertension, possible chronic kidney disease, acute kidney injury, leukopenia, and anemia. ALLERGIES: Include sulfa drugs and HIV medications including abacavir, didanosine, ribavirin, fosamprenavir, hydromorphone, indinavir, and sulfamethoxazole/trimethoprim or Bactrim. SOCIAL HISTORY: Negative for smoking, alcohol, or drug abuse. FAMILY HISTORY: Noncontributory. Negative for exposure to tuberculosis or cancer. MEDICATIONS: Upon reviewing the MAR, he is on following medications. He is on azithromycin, Rocephin, acetaminophen, albuterol treatment, aspirin, bisacodyl. He is on finasteride, gabapentin, insulin, loperamide, lorazepam, montelukast, Zofran, polyethylene glycol, Xarelto, sucralfate, . He is on Juluca, which is dolutegravir and rilpivirine. Outside medications were noted and reconciliated. I am not sure if he is on other antiviral at this time. PHYSICAL EXAMINATION: VITAL SIGNS: On admission, temperature was 101.7. When I saw the patient, temperature was 96.8. T-max 101.7. Pulse rate on admission was as high as 110. Respiratory rate on admission, highest she has had is 28 since admission. Other vital signs, temperature 96.8, pulse 76, respiratory rate 20, blood pressure 133/83, saturation 100%. GENERAL: Alert, responsive, in no distress. Mild shortness of breath noted only. HEAD AND NECK: Oral exam, no thrush. Eye exam, no icterus. Normocephalic. Neck is supple. No JVD. HEART: Regular. No gallop or murmur. ABDOMEN: Soft. Some tenderness. No rebound. LUNGS: Few bilateral rhonchi. Possible crackles. SKIN: No rash. MUSCULOSKELETAL: No effusion. Legs are without cellulitis. PERIPHERAL VASCULAR: No cyanosis or gangrene. GENITOURINARY: No Rosenbaum. LINE SITES: Without phlebitis. NEUROLOGIC: Intact and nonfocal. Alert and oriented. LABORATORY DATA: Creatinine 1.6. White count 6.5 and hemoglobin 13.9. White count on admission was 12.9. COVID-19 virus testing was done. Results are pending. Other workup and serology is pending. IMAGING STUDIES: CT scan of the abdomen and pelvis showed from surgery. It did not show an abscess. Chest x-ray again showed congestive heart failure, edema, rule out infiltrates. It is interstitial in nature. Again creatinine 1.6 white count 6.5 and hemoglobin 13 line. White count 13.1 on admission 12.9. ASSESSMENT AND PLAN: 1. The patient has what looks like possible community-acquired pneumonia, fevers, sepsis, and leukocytosis. Rule out COVID-19 pneumonia and infection. At this time, we will continue Rocephin and azithromycin to treat community-acquired pneumonia, sepsis, fevers, COVID-19 testing. Check followup laboratories and chest x-ray. Check cultures. Check COVID-19 testing. Continue isolation for COVID-19 virus infection. Continue Rocephin and azithromycin for sepsis and pneumonia pending final workup. 2. HIV and AIDS. The patient is not at risk for opportunistic infections. We will check CD4. Continue antiviral therapy. I think the patient gets it from home. He is on Juluca to my knowledge. 3. Acute kidney injury and elevated creatinine, possible chronic renal failure. 4. Mild anemia. 5. History of asthma and COPD. 6. Diabetes. 7. Hypertension. 8. BPH. 9. Lymphoma. 10. Chronic kidney disease. 11. Hypertension. 12. Blood sugar and blood pressure treatment per primary care team. 13. Allergies to sulfa drugs and HIV medications. 14. Social history negative. 15. Family history noncontributory. 16. MAR was noted. 17. Case discussed with RN. 18. Case discussed with Dr. Santamaria. 19. Continue treatment per primary consultants. 20. Orders were noted and entered. Jairo Chavez M.D. DR: Joss JOB#: [id number] CC:
[2019-12-25 04:00] VITALS: BP 129/67
[2019-12-25] MEDS: Azithromycin 500 MG in D5W 275 ML IV SCH (04:51)
[2019-12-25 06:08] LABS: BASOPHILS % (AUTO) 0.8 % (0.0-2.0); EOSINOPHILS % (AUTO) 3.3 % (0.0-3.0); HEMATOCRIT 36.8 % (42.0-52.0); HEMOGLOBIN 13.4 G/DL (14.2-18.0); LYMPHOCYTES % (AUTO) 42.1 % (20.0-45.0); MEAN CORPUSCULAR VOLUME 88 FL (80-99); NEUTROPHILS % (AUTO) 41.8 % (45.0-75.0); PLATELET COUNT 107 K/UL (150-450); RED BLOOD COUNT 4.18 M/UL (4.70-6.10); RED CELL DISTRIBUTION WIDTH 10.8 % (11.6-14.8); WHITE BLOOD COUNT 3.9 K/UL (4.8-10.8)
[2019-12-25 06:30] LABS: ALANINE AMINOTRANSFERASE 91 U/L (12-78); ALBUMIN 3.4 G/DL (3.4-5.0); ALBUMIN/GLOBULIN RATIO 1.1 (1.0-2.7); ALKALINE PHOSPHATASE 54 U/L (46-116); AMYLASE 71 U/L (25-115); ANION GAP 13 mmol/L (5-15); ASPARTATE AMINO TRANSFERASE 55 U/L (15-37); BILIRUBIN,TOTAL 0.3 MG/DL (0.2-1.0); BLOOD UREA NITROGEN 13 mg/dL (7-18); CALCIUM 7.9 MG/DL (8.5-10.1); CARBON DIOXIDE 20 MMOL/L (21-32); CHLORIDE 107 MMOL/L (98-107); POTASSIUM 3.3 MMOL/L (3.5-5.1); SODIUM 140 MMOL/L (136-145)
[2019-12-25] MEDS: NovoLOG Insulin Flexpen SUBQ SCH ×4 (06:30→21:00)
[2019-12-25] MEDS: cefTRIAXone 1 GM in D5W 55 ML IV SCH (06:49)
[2019-12-25] MEDS: Sucralfate 1gm tab ORAL SCH ×5 (06:49→18:01)
--- NOTE | 2019-12-25 07:15 | NUR ---
HAND-OFF: Report given to Christi SETH. Pt remains stable.
--- NOTE | 2019-12-25 07:16 | NUR ---
NURSE NOTES: Received report from Ted Craven RN. Patient resting in bed, easily arousable. Patient is AOx4. Patient is on room air and tolerating well. IV site Rt hand #22 g patent and asymptomatic. Patient is clean and dry. Bed is in lowest position, alarmed and locked. Side Rails x2, and call light placed within reach. Will continue to monitor.
[2019-12-25 08:00] VITALS: BP 104/60
--- NOTE | 2019-12-25 08:07 | General Progress Note ---
Assessment/Plan Assessment/Plan: PROBLEM LIST: 1. Diabetes. 2. HIV. 3. Hypertension. 4. Renal insufficiency. 5. Abnormal liver function tests. 6. Fatty liver. 7. History of cholecystectomy. 8. Diverticulosis 9. Diarrhea CT and us reviewed stool studies >>> NEG >>> prn imodium elevated lipase but normal amylase>> will repeat labs in am DM control LFTS>>> improving>>> neg hepatitis panel Subjective Allergies: Coded Allergies: ABACAVIR (Verified Allergy, Unknown, 01/26/19) DIDANOSINE (Verified Allergy, Unknown, 01/26/19) EFAVIRENZ (Verified Allergy, Unknown, 01/26/19) FOSAMPRENAVIR (Verified Allergy, Unknown, 01/26/19) INDINAVIR (Verified Allergy, Unknown, 01/26/19) SULFAMETHOXAZOLE (Verified Allergy, Unknown, 01/26/19) TRIMETHOPRIM (Verified Allergy, Unknown, 01/29/09) HYDROMORPHONE (Verified Adverse Reaction, Unknown, VOMITS, 06/12/12) Subjective diarrhea Objective Last 24 Hour Vital Signs Date Time Temp Pulse Resp B/P (MAP) Pulse Ox O2 Delivery O2 Flow Rate FiO2 12/25/19 04:00 72 12/25/19 04:00 Room Air 12/25/19 04:00 98.1 78 19 129/67 (87) 98 12/25/19 00:00 Room Air 12/25/19 00:00 98.3 62 19 139/63 (88) 99 12/25/19 00:00 78 12/24/19 20:00 79 12/24/19 20:00 Room Air 12/24/19 20:00 97.8 68 19 130/58 (82) 100 12/24/19 16:00 Room Air 12/24/19 16:00 97.7 70 20 109/63 (78) 100 12/24/19 16:00 72 12/24/19 12:00 Room Air 12/24/19 12:00 74 12/24/19 11:10 97.7 74 20 115/74 (88) 100 Intake and Output 12/24/19 12/25/19 19:00 07:00 Intake Total 500 ml 375 ml Balance 500 ml 375 ml Intake Oral 500 ml 100 ml IV Total 275 ml # Voids 4 # Bowel Movements 4 1 Laboratory Tests 12/25/19 04:50: White Blood Count 3.9L, Red Blood Count 4.18L, Hemoglobin 13.4L, Hematocrit 36.8L, Mean Corpuscular Volume 88, Mean Corpuscular Hemoglobin 32.2H, Mean Corpuscular Hemoglobin Concent 36.6H, Red Cell Distribution Width 10.8L, Platelet Count 107L, Mean Platelet Volume 5.9L, Neutrophils (%) (Auto) 41.8L, Lymphocytes (%) (Auto) 42.1, Monocytes (%) (Auto) 12.0H, Eosinophils (%) (Auto) 3.3H, Basophils (%) (Auto) 0.8, Sodium Level 140, Potassium Level 3.3L, Chloride Level 107, Carbon Dioxide Level 20L, Anion Gap 13, Blood Urea Nitrogen 13, Creatinine 1.0, Estimat Glomerular Filtration Rate > 60, Glucose Level 172H , Calcium Level 7.9L, Total Bilirubin 0.3, Aspartate Amino Transf (AST/SGOT) 55H , Alanine Aminotransferase (ALT/SGPT) 91H, Alkaline Phosphatase 54, Total Protein 6.6, Albumin 3.4, Globulin 3.2, Albumin/Globulin Ratio 1.1, Amylase Level 71, Lipase 503H Height (Feet): 5 Height (Inches): 7.00 Weight (Pounds): 222 General Appearance: alert EENT: PERRL/EOMI Neck: supple Cardiovascular: normal peripheral pulses Respiratory/Chest: decreased breath sounds Abdomen: normal bowel sounds, non tender, soft Extremities: non-tender Jose Roberto Ruff MD Dec 25, 2019 08:07
--- NOTE | 2019-12-25 08:41 | General Progress Note ---
Assessment/Plan Assessment/Plan: 69 year old man with HIV,hypertension, COPD, diabetes, lymphoma, BPH who presents to the ER with complaints of abdominal discomfort and persistent diarrhea, found to have YRN. #Sepsis - resolved #CAP #Abdominal pain, N/V, diarrhea, negative CT A/P and US abd #AIDS -continue inpatient medical care -continue broad spectrum antibiotics for now -BCx NGTD -continue home ART -follow up COVID19 testing -GI following -ID following: cont. azithromycin, ceftriaxone #Transaminitis #Elevated lipase -normal amylase -Hep panel negative -GI following: trend LFTs #Hypokalemia -replaced, ctm, replace PRN #loose stools - improved -C. diff, culture, O&P negative -colace to PRN -immodium -GI following, recs appreciated #Hypokalemia -replaced -cont to monitor, replace PRN #YRN, resolved -stop IV hydration -hold ACEI, diuretics, NSAIDS -avoid nephrotoxins -Nephrology following: check AM labs #COPD -not in acute exacerbation -Duoneb prn #BPH -cont Proscar and Flomax -monitor urine output #DM type 2 -metformin on hold -diabetic diet -ISS I spent 35 minutes on this patient's case, and >50% was dedicated to counseling and/or care coordination. Subjective Allergies: Coded Allergies: ABACAVIR (Verified Allergy, Unknown, 01/26/19) DIDANOSINE (Verified Allergy, Unknown, 01/26/19) EFAVIRENZ (Verified Allergy, Unknown, 01/26/19) FOSAMPRENAVIR (Verified Allergy, Unknown, 01/26/19) INDINAVIR (Verified Allergy, Unknown, 01/26/19) SULFAMETHOXAZOLE (Verified Allergy, Unknown, 01/26/19) TRIMETHOPRIM (Verified Allergy, Unknown, 01/29/09) HYDROMORPHONE (Verified Adverse Reaction, Unknown, VOMITS, 06/12/12) Subjective Follow up for sepsis, CAP, YRN, lactic acidosis, abdominal pain and diarrhea. No acute events overnight. No F/C, cough. Objective Last 24 Hour Vital Signs Date Time Temp Pulse Resp B/P (MAP) Pulse Ox O2 Delivery O2 Flow Rate FiO2 12/25/19 08:00 97.9 70 18 104/60 (75) 99 12/25/19 04:00 72 12/25/19 04:00 Room Air 12/25/19 04:00 98.1 78 19 129/67 (87) 98 12/25/19 00:00 Room Air 12/25/19 00:00 98.3 62 19 139/63 (88) 99 12/25/19 00:00 78 12/24/19 20:00 79 12/24/19 20:00 Room Air 12/24/19 20:00 97.8 68 19 130/58 (82) 100 12/24/19 16:00 Room Air 12/24/19 16:00 97.7 70 20 109/63 (78) 100 12/24/19 16:00 72 12/24/19 12:00 Room Air 12/24/19 12:00 74 12/24/19 11:10 97.7 74 20 115/74 (88) 100 Intake and Output 12/24/19 12/25/19 19:00 07:00 Intake Total 500 ml 375 ml Balance 500 ml 375 ml Intake Oral 500 ml 100 ml IV Total 275 ml # Voids 4 # Bowel Movements 4 1 Laboratory Tests 12/25/19 04:50: White Blood Count 3.9L, Red Blood Count 4.18L, Hemoglobin 13.4L, Hematocrit 36.8L, Mean Corpuscular Volume 88, Mean Corpuscular Hemoglobin 32.2H, Mean Corpuscular Hemoglobin Concent 36.6H, Red Cell Distribution Width 10.8L, Platelet Count 107L, Mean Platelet Volume 5.9L, Neutrophils (%) (Auto) 41.8L, Lymphocytes (%) (Auto) 42.1, Monocytes (%) (Auto) 12.0H, Eosinophils (%) (Auto) 3.3H, Basophils (%) (Auto) 0.8, Sodium Level 140, Potassium Level 3.3L, Chloride Level 107, Carbon Dioxide Level 20L, Anion Gap 13, Blood Urea Nitrogen 13, Creatinine 1.0, Estimat Glomerular Filtration Rate > 60, Glucose Level 172H , Calcium Level 7.9L, Total Bilirubin 0.3, Aspartate Amino Transf (AST/SGOT) 55H , Alanine Aminotransferase (ALT/SGPT) 91H, Alkaline Phosphatase 54, Total Protein 6.6, Albumin 3.4, Globulin 3.2, Albumin/Globulin Ratio 1.1, Amylase Level 71, Lipase 503H Height (Feet): 5 Height (Inches): 7.00 Weight (Pounds): 222 Objective General Appearance: alert, awake, NAD, sitting up in bed eating lunch Neck: normal alignment, supple Cardiovascular: normal rate, regular rhythm Respiratory/Chest: lungs clear, normal breath sounds, no respiratory distress Abdomen: non tender, soft, NT/ND Neurologic: facilities 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 Dec 25, 2019 08:41
[2019-12-25] MEDS: JULUCA ORAL SCH (09:25)
[2019-12-25] MEDS: Montelukast 10mg tablet ORAL SCH (09:26)
[2019-12-25] MEDS: Tamsulosin 0.4mg cap ORAL SCH (09:27)
[2019-12-25] MEDS: Aspirin Baby 81mg ORAL SCH (09:28)
[2019-12-25] MEDS: Xarelto 10mg tab ORAL SCH (09:29)
--- NOTE | 2019-12-25 09:47 | Nephrology Progress Note ---
Assessment/Plan Plan #acute kidney injury likely due to pre-renal azotemia in the setting of sepsis #lactic acidosis- resolved # HIV #HTN #DM #BPH - DC IVF - replete K - on abx - ceftriaxone and azithro - hold lisinopril for now - hold metformin for now - continue flomax - avoid nephrotoxins - avoid NSAIDs - check labs tomorrow Subjective Subjective Cr stable K low - repleted continues to have some diarrhea no abd pain no nausea or emesis Objective Objective Last 24 Hour Vital Signs Date Time Temp Pulse Resp B/P (MAP) Pulse Ox O2 Delivery O2 Flow Rate FiO2 12/25/19 08:00 Room Air 12/25/19 08:00 97.9 70 18 104/60 (75) 99 12/25/19 08:00 65 12/25/19 04:00 72 12/25/19 04:00 Room Air 12/25/19 04:00 98.1 78 19 129/67 (87) 98 12/25/19 00:00 Room Air 12/25/19 00:00 98.3 62 19 139/63 (88) 99 12/25/19 00:00 78 12/24/19 20:00 79 12/24/19 20:00 Room Air 12/24/19 20:00 97.8 68 19 130/58 (82) 100 12/24/19 16:00 Room Air 12/24/19 16:00 97.7 70 20 109/63 (78) 100 12/24/19 16:00 72 12/24/19 12:00 Room Air 12/24/19 12:00 74 12/24/19 11:10 97.7 74 20 115/74 (88) 100 Intake and Output 12/24/19 12/25/19 19:00 07:00 Intake Total 500 ml 375 ml Balance 500 ml 375 ml Intake Oral 500 ml 100 ml IV Total 275 ml # Voids 4 # Bowel Movements 4 1 Laboratory Tests 12/25/19 04:50: White Blood Count 3.9L, Red Blood Count 4.18L, Hemoglobin 13.4L, Hematocrit 36.8L, Mean Corpuscular Volume 88, Mean Corpuscular Hemoglobin 32.2H, Mean Corpuscular Hemoglobin Concent 36.6H, Red Cell Distribution Width 10.8L, Platelet Count 107L, Mean Platelet Volume 5.9L, Neutrophils (%) (Auto) 41.8L, Lymphocytes (%) (Auto) 42.1, Monocytes (%) (Auto) 12.0H, Eosinophils (%) (Auto) 3.3H, Basophils (%) (Auto) 0.8, Sodium Level 140, Potassium Level 3.3L, Chloride Level 107, Carbon Dioxide Level 20L, Anion Gap 13, Blood Urea Nitrogen 13, Creatinine 1.0, Estimat Glomerular Filtration Rate > 60, Glucose Level 172H , Calcium Level 7.9L, Total Bilirubin 0.3, Aspartate Amino Transf (AST/SGOT) 55H , Alanine Aminotransferase (ALT/SGPT) 91H, Alkaline Phosphatase 54, Total Protein 6.6, Albumin 3.4, Globulin 3.2, Albumin/Globulin Ratio 1.1, Amylase Level 71, Lipase 503H Height (Feet): 5 Height (Inches): 7.00 Weight (Pounds): 222 Objective General Appearance: WD/WN, no apparent distress Lines, tubes and drains: peripheral HEENT: normocephalic, atraumatic Neck: non-tender, supple Respiratory/Chest: chest wall non-tender, lungs clear Cardiovascular/Chest: normal peripheral pulses, normal rate, regular rhythm Abdomen: normal bowel sounds, non tender, soft Neurologic: alert, oriented x 3 Antoine Martinez M.D. Dec 25, 2019 09:47
[2019-12-25] MEDS ORDERED: Tubing IV Secondary IV ONE (09:50)
[2019-12-25] MEDS ORDERED: NS 275ml ONE (09:50)
[2019-12-25 12:00] VITALS: BP 127/79
[2019-12-25 16:00] VITALS: BP 131/79
[2019-12-25] MEDS: LORazepam 1mg tab ORAL PRN ×2 (16:50→21:18)
--- NOTE | 2019-12-25 19:15 | NUR ---
NURSE NOTES: Received patient from ROLO Mccracken. Patient is sleeping in bed, easily awakened. Patient is AOx4 and speaks bulgarian. On Room air and tolerating well. VSS. Afebrile. Showing SR on the property assessment monitor. No distress noted. IV site to Lt AC #20 g SL flushing and patent w/o s/s infiltration. Ambulating slowly but steady. Bed is in lowest position. alarmed and lock engaged. Side rails up x2. call light within reach. Will continue POC.
--- NOTE | 2019-12-25 19:22 | NUR ---
HAND-OFF: Report given to ROLO Jean.
[2019-12-25 20:00] VITALS: BP 136/80
[2019-12-26] VITALS: BP 129/66
[2019-12-26 04:00] VITALS: BP 125/72
--- NOTE | 2019-12-26 04:00 | NUR ---
NURSE NOTES: Patient is sleeping but easily awakened. On Room air VSS. Afebrile. Remain SR on the county assessor. No distress noted. Respirations even and unlabored. No coughing noted. C/o of diarrhea X2. Lt AC #20 g SL flushing and patent w/o s/s infiltration. Ambulating slowly to bathroom but steady. Bed is in lowest position. alarmed and lock engaged. Side rails up x2. call light within reach. Will continue POC.
[2019-12-26 06:11] LABS: BASOPHILS % (AUTO) 0.9 % (0.0-2.0); EOSINOPHILS % (AUTO) 2.9 % (0.0-3.0); HEMATOCRIT 35.6 % (42.0-52.0); HEMOGLOBIN 13.3 G/DL (14.2-18.0); LYMPHOCYTES % (AUTO) 49.8 % (20.0-45.0); MEAN CORPUSCULAR VOLUME 87 FL (80-99); MONOCYTES % (AUTO) 12.7 % (1.0-10.0); NEUTROPHILS % (AUTO) 33.7 % (45.0-75.0); PLATELET COUNT 103 K/UL (150-450); RED CELL DISTRIBUTION WIDTH 10.8 % (11.6-14.8); WHITE BLOOD COUNT 3.9 K/UL (4.8-10.8)
[2019-12-26] MEDS: cefTRIAXone 1 GM in D5W 55 ML IV SCH (06:24)
[2019-12-26] MEDS: NovoLOG Insulin Flexpen SUBQ SCH ×4 (06:25→21:00)
[2019-12-26] MEDS: Sucralfate 1gm tab ORAL SCH ×5 (06:26→18:30)
[2019-12-26 06:28] LABS: ALANINE AMINOTRANSFERASE 95 U/L (12-78); ALBUMIN 3.4 G/DL (3.4-5.0); ALKALINE PHOSPHATASE 60 U/L (46-116); ANION GAP 11 mmol/L (5-15); ASPARTATE AMINO TRANSFERASE 51 U/L (15-37); BILIRUBIN,TOTAL 0.3 MG/DL (0.2-1.0); BLOOD UREA NITROGEN 14 mg/dL (7-18); CALCIUM 9.2 MG/DL (8.5-10.1); CARBON DIOXIDE 25 MMOL/L (21-32); CHLORIDE 108 MMOL/L (98-107); POTASSIUM 3.8 MMOL/L (3.5-5.1); SODIUM 144 MMOL/L (136-145)
--- NOTE | 2019-12-26 07:10 | NUR ---
NURSE NOTES: Received report from Ted SETH. Pt in bed awake and orientedx4. Pt denied pain. No c/o nausea. IV site in right hand 22G SL patent and intact. Bed in lowest position and locked. Bed in lowest position and locked. Call light within easy reach. Diarrhea x1 reported during previous shift, c-diff still pending. Will continue to plan of care.
--- NOTE | 2019-12-26 07:46 | General Progress Note ---
Assessment/Plan Assessment/Plan: PROBLEM LIST: 1. Diabetes. 2. HIV. 3. Hypertension. 4. Renal insufficiency. 5. Abnormal liver function tests. 6. Fatty liver. 7. History of cholecystectomy. 8. Diverticulosis 9. Diarrhea CT and us reviewed stool studies >>> NEG >>> prn imodium elevated lipase but normal amylase>> will repeat labs in am DM control LFTS>>> improving>>> neg hepatitis panel Subjective ROS Limited/Unobtainable: No Allergies: Coded Allergies: ABACAVIR (Verified Allergy, Unknown, 01/26/19) DIDANOSINE (Verified Allergy, Unknown, 01/26/19) EFAVIRENZ (Verified Allergy, Unknown, 01/26/19) FOSAMPRENAVIR (Verified Allergy, Unknown, 01/26/19) INDINAVIR (Verified Allergy, Unknown, 01/26/19) SULFAMETHOXAZOLE (Verified Allergy, Unknown, 01/26/19) TRIMETHOPRIM (Verified Allergy, Unknown, 01/29/09) HYDROMORPHONE (Verified Adverse Reaction, Unknown, VOMITS, 06/12/12) Subjective diarrhea Objective Last 24 Hour Vital Signs Date Time Temp Pulse Resp B/P (MAP) Pulse Ox O2 Delivery O2 Flow Rate FiO2 12/26/19 04:00 61 12/26/19 04:00 Room Air 12/26/19 04:00 97.0 78 18 125/72 (89) 99 12/26/19 00:00 Room Air 12/26/19 00:00 97.1 60 18 129/66 (87) 99 12/25/19 20:00 73 12/25/19 20:00 97.7 78 20 136/80 (98) 100 12/25/19 20:00 Room Air 12/25/19 16:00 67 12/25/19 16:00 97.9 80 20 131/79 (96) 100 12/25/19 16:00 Room Air 12/25/19 12:00 79 12/25/19 12:00 Room Air 12/25/19 12:00 97.9 78 19 127/79 (95) 100 12/25/19 08:00 Room Air 12/25/19 08:00 97.9 70 18 104/60 (75) 99 12/25/19 08:00 65 Intake and Output 12/25/19 12/26/19 19:00 07:00 Intake Total 1100 ml 200 ml Balance 1100 ml 200 ml Intake Oral 1100 ml 200 ml # Voids 7 2 # Bowel Movements 8 5 Laboratory Tests 12/26/19 04:50: White Blood Count 3.9L, Red Blood Count 4.10L, Hemoglobin 13.3L, Hematocrit 35.6L, Mean Corpuscular Volume 87, Mean Corpuscular Hemoglobin 32.5H, Mean Corpuscular Hemoglobin Concent 37.5H, Red Cell Distribution Width 10.8L, Platelet Count 103L, Mean Platelet Volume 6.4L, Neutrophils (%) (Auto) 33.7L, Lymphocytes (%) (Auto) 49.8H, Monocytes (%) (Auto) 12.7H, Eosinophils (%) (Auto ) 2.9, Basophils (%) (Auto) 0.9, Sodium Level 144, Potassium Level 3.8, Chloride Level 108H, Carbon Dioxide Level 25, Anion Gap 11, Blood Urea Nitrogen 14, Creatinine 1.0, Estimat Glomerular Filtration Rate > 60, Glucose Level 136H , Calcium Level 9.2, Total Bilirubin 0.3, Aspartate Amino Transf (AST/SGOT) 51H , Alanine Aminotransferase (ALT/SGPT) 95H, Alkaline Phosphatase 60, Total Protein 6.7, Albumin 3.4, Globulin 3.3, Albumin/Globulin Ratio 1.0 Height (Feet): 5 Height (Inches): 7.00 Weight (Pounds): 222 General Appearance: alert EENT: normal ENT inspection Neck: supple Cardiovascular: normal rate Respiratory/Chest: decreased breath sounds Abdomen: normal bowel sounds, non tender, soft Extremities: non-tender Jose Roberto Ruff MD Dec 26, 2019 07:46
[2019-12-26 08:00] VITALS: BP 117/67
[2019-12-26] MEDS: Aspirin Baby 81mg ORAL SCH (09:01)
[2019-12-26] MEDS: Montelukast 10mg tablet ORAL SCH (09:01)
[2019-12-26] MEDS: Azithromycin 250mg tab ORAL SCH (09:01)
[2019-12-26] MEDS: Tamsulosin 0.4mg cap ORAL SCH (09:01)
[2019-12-26] MEDS: JULUCA ORAL SCH (09:01)
[2019-12-26] MEDS: Xarelto 10mg tab ORAL SCH (09:01)
[2019-12-26] MEDS ORDERED: SYNTHROID25 MCG ORAL (09:07)
--- NOTE | 2019-12-26 09:08 | NUR ---
RD ASSESSMENT & RECOMMENDATIONS SEE CARE ACTIVITY FOR COMPLETE ASSESSMENT DAILY ESTIMATED NEEDS: Needs based on Obese, DM, HIV 75.7kg adj 25-28 kcals/kg 5494-0671 total kcals 1-1.5 g protein/kg 76-114 g total protein 25-30 mL/kg 2211-5909 total fluid mLs NUTRITION DIAGNOSIS: 1) Altered nutrition related lab values r/t diabetes as evidenced by elev POC glu (123-141), elev BG (136 172) . 2) Altered GI functions R/T unknown etiology as evidenced by admitted w/ c/o N/G, now resolved, now w/ diarrhea, stool studies negative. CURRENT DIET:[facility] MED PO DIET RECOMMENDATIONS: CCHO MED, SOFT ADDITIONAL RECOMMENDATIONS: 1) Standing wt for accurate CBW 2) Monitor lytes, replete as needed 3) Rec probiotics for diarrhea (pt on abx) .
[2019-12-26] MEDS: LORazepam 1mg tab ORAL PRN ×2 (09:16→21:42)
--- NOTE | 2019-12-26 10:22 | Nephrology Progress Note ---
Assessment/Plan Plan #acute kidney injury likely due to pre-renal azotemia in the setting of sepsis #lactic acidosis- resolved # HIV #HTN #DM #BPH - DC IVF - replete lytes prn - on abx - ceftriaxone and azithro - hold lisinopril for now -> monitor BP - hold metformin for now-. Monitor BG - continue flomax - avoid nephrotoxins - avoid NSAIDs Subjective Subjective Cr stable labs reviewed BP stable no abd pain no nausea or emesis Objective Objective Last 24 Hour Vital Signs Date Time Temp Pulse Resp B/P (MAP) Pulse Ox O2 Delivery O2 Flow Rate FiO2 12/26/19 08:00 69 12/26/19 08:00 97.7 76 18 117/67 (84) 98 12/26/19 08:00 Room Air 12/26/19 07:00 76 20 98 Room Air 21 12/26/19 04:00 61 12/26/19 04:00 Room Air 12/26/19 04:00 97.0 78 18 125/72 (89) 99 12/26/19 00:00 Room Air 12/26/19 00:00 97.1 60 18 129/66 (87) 99 12/25/19 20:00 73 12/25/19 20:00 97.7 78 20 136/80 (98) 100 12/25/19 20:00 Room Air 12/25/19 16:00 67 12/25/19 16:00 97.9 80 20 131/79 (96) 100 12/25/19 16:00 Room Air 12/25/19 12:00 79 12/25/19 12:00 Room Air 12/25/19 12:00 97.9 78 19 127/79 (95) 100 Intake and Output 12/25/19 12/26/19 19:00 07:00 Intake Total 1100 ml 200 ml Balance 1100 ml 200 ml Intake Oral 1100 ml 200 ml # Voids 7 2 # Bowel Movements 8 5 Laboratory Tests 12/26/19 04:50: White Blood Count 3.9L, Red Blood Count 4.10L, Hemoglobin 13.3L, Hematocrit 35.6L, Mean Corpuscular Volume 87, Mean Corpuscular Hemoglobin 32.5H, Mean Corpuscular Hemoglobin Concent 37.5H, Red Cell Distribution Width 10.8L, Platelet Count 103L, Mean Platelet Volume 6.4L, Neutrophils (%) (Auto) 33.7L, Lymphocytes (%) (Auto) 49.8H, Monocytes (%) (Auto) 12.7H, Eosinophils (%) (Auto ) 2.9, Basophils (%) (Auto) 0.9, Sodium Level 144, Potassium Level 3.8, Chloride Level 108H, Carbon Dioxide Level 25, Anion Gap 11, Blood Urea Nitrogen 14, Creatinine 1.0, Estimat Glomerular Filtration Rate > 60, Glucose Level 136H , Calcium Level 9.2, Total Bilirubin 0.3, Aspartate Amino Transf (AST/SGOT) 51H , Alanine Aminotransferase (ALT/SGPT) 95H, Alkaline Phosphatase 60, Total Protein 6.7, Albumin 3.4, Globulin 3.3, Albumin/Globulin Ratio 1.0 Height (Feet): 5 Height (Inches): 7.00 Weight (Pounds): 222 Objective General Appearance: WD/WN, no apparent distress Lines, tubes and drains: peripheral HEENT: normocephalic, atraumatic Neck: non-tender, supple Respiratory/Chest: chest wall non-tender, lungs clear Cardiovascular/Chest: normal peripheral pulses, normal rate, regular rhythm Abdomen: normal bowel sounds, non tender, soft Neurologic: alert, oriented x 3 Antoine Martinez M.D. Dec 26, 2019 10:22
[2019-12-26 12:00] VITALS: BP 145/68
--- NOTE | 2019-12-26 14:16 | NUR ---
[employer] SI: RENAL INSUFFICIENCY T. 97.0 HR 80 RR 18 B/P 145/68 WBC 3.9 AST 51 ALT 95 IS: ZITHROMAX SYNTHROID CEFTRIAXONE IV STEP DOWN STATUS
[2019-12-26 16:00] VITALS: BP 118/67
--- NOTE | 2019-12-26 17:28 | General Progress Note ---
Assessment/Plan Assessment/Plan: 69 year old man with HIV,hypertension, COPD, diabetes, lymphoma, BPH who presents to the ER with complaints of abdominal discomfort and persistent diarrhea, found to have YRN. #Sepsis #CAP #Abdominal pain, N/V, diarrhea, negative CT A/P and US abd #AIDS -continue inpatient medical care -Stool studies negative -follow up COVID19 testing -GI and ID following -continue azithromycin and ceftriaxone -follow up blood cultures -continue home ART #YRN, resolved -hold ACEI, diuretics, NSAIDS -Nephrology consult appreciated #COPD -not in acute exacerbation -Duoneb prn #BPH -cont Proscar and Flomax -monitor urine output #DM type 2 -metformin on hold -diabetic diet -ISS I spent 35 minutes on this patient's case, and >50% was dedicated to counseling and/or care coordination. Subjective Date patient seen: Dec 26, 2019 Time patient seen: 15:22 Constitutional: Denies: chills, fever Cardiovascular: Denies: chest pain Respiratory: Denies: cough Gastrointestinal/Abdominal: Denies: abdomen distended, abdominal pain, diarrhea Genitourinary: Denies: burning Allergies: Coded Allergies: ABACAVIR (Verified Allergy, Unknown, 01/26/19) DIDANOSINE (Verified Allergy, Unknown, 01/26/19) EFAVIRENZ (Verified Allergy, Unknown, 01/26/19) FOSAMPRENAVIR (Verified Allergy, Unknown, 01/26/19) INDINAVIR (Verified Allergy, Unknown, 01/26/19) SULFAMETHOXAZOLE (Verified Allergy, Unknown, 01/26/19) TRIMETHOPRIM (Verified Allergy, Unknown, 01/29/09) HYDROMORPHONE (Verified Adverse Reaction, Unknown, VOMITS, 06/12/12) Subjective Follow up for sepsis, CAP, YRN, lactic acidosis, abdominal pain and diarrhea improved No new complaints. Covid testing pending Objective Last 24 Hour Vital Signs Date Time Temp Pulse Resp B/P (MAP) Pulse Ox O2 Delivery O2 Flow Rate FiO2 12/26/19 16:00 Room Air 12/26/19 12:00 75 12/26/19 12:00 Room Air 12/26/19 12:00 97.0 80 18 145/68 (93) 97 12/26/19 08:00 69 12/26/19 08:00 97.7 76 18 117/67 (84) 98 3/23/20 08:00 Room Air 12/26/19 07:00 76 20 98 Room Air 21 12/26/19 04:00 61 12/26/19 04:00 Room Air 12/26/19 04:00 97.0 78 18 125/72 (89) 99 12/26/19 00:00 Room Air 12/26/19 00:00 97.1 60 18 129/66 (87) 99 12/25/19 20:00 73 12/25/19 20:00 97.7 78 20 136/80 (98) 100 12/25/19 20:00 Room Air Intake and Output 12/25/19 12/26/19 19:00 07:00 Intake Total 1100 ml 200 ml Balance 1100 ml 200 ml Intake Oral 1100 ml 200 ml # Voids 7 2 # Bowel Movements 8 5 Laboratory Tests 12/26/19 04:50: White Blood Count 3.9L, Red Blood Count 4.10L, Hemoglobin 13.3L, Hematocrit 35.6L, Mean Corpuscular Volume 87, Mean Corpuscular Hemoglobin 32.5H, Mean Corpuscular Hemoglobin Concent 37.5H, Red Cell Distribution Width 10.8L, Platelet Count 103L, Mean Platelet Volume 6.4L, Neutrophils (%) (Auto) 33.7L, Lymphocytes (%) (Auto) 49.8H, Monocytes (%) (Auto) 12.7H, Eosinophils (%) (Auto ) 2.9, Basophils (%) (Auto) 0.9, Sodium Level 144, Potassium Level 3.8, Chloride Level 108H, Carbon Dioxide Level 25, Anion Gap 11, Blood Urea Nitrogen 14, Creatinine 1.0, Estimat Glomerular Filtration Rate > 60, Glucose Level 136H , Calcium Level 9.2, Total Bilirubin 0.3, Aspartate Amino Transf (AST/SGOT) 51H , Alanine Aminotransferase (ALT/SGPT) 95H, Alkaline Phosphatase 60, Total Protein 6.7, Albumin 3.4, Globulin 3.3, Albumin/Globulin Ratio 1.0 Height (Feet): 5 Height (Inches): 7.00 Weight (Pounds): 222 General Appearance: no apparent distress, alert Cardiovascular: normal rate, regular rhythm Respiratory/Chest: lungs clear, normal breath sounds Abdomen: non tender, soft, no organomegaly, no mass Neurologic: alert, oriented x 3 Ferdinand Chawla MD Dec 26, 2019 17:28
--- NOTE | 2019-12-26 18:48 | Infectious Diseases Prog Note ---
Assessment/Plan Assessment/Plan A) 1) ? cap, fevers, sepsis, rule out covid-19 pna, ? infectious diarrhea, ? c.diff., ? viral syndrome, pancreatitis, stool studies negative 2) hiv, hx aids, cd4>500, asthma, copd, dm, bph, lymphoma, htn, nelson, ? ckd 3) allergies - sulfa, hiv medications noted, fh-nc, sh-neg, mar noted 4) notes and records noted 45 d/w RN P) 1) azithromycin, ceftriaxone - day # 5 abx 2) monitor labs, cultures, chest x-ray 3) await covid-19 testing 4) clinically improved 5) will f/u Subjective Constitutional: Denies: fever, chills Respiratory: Denies: shortness of breath Cardiovascular: Denies: chest pain Gastrointestinal/Abdominal: Reports: diarrhea - less; Denies: nausea, vomiting Genitourinary: Denies: dysuria Neurologic: Denies: headache, numbness Psychiatric: Denies: depression Skin: Denies: rash Hematologic: Denies: bleeding Musculoskeletal: Denies: pain Allergies: Coded Allergies: ABACAVIR (Verified Allergy, Unknown, 01/26/19) DIDANOSINE (Verified Allergy, Unknown, 01/26/19) EFAVIRENZ (Verified Allergy, Unknown, 01/26/19) FOSAMPRENAVIR (Verified Allergy, Unknown, 01/26/19) INDINAVIR (Verified Allergy, Unknown, 01/26/19) SULFAMETHOXAZOLE (Verified Allergy, Unknown, 01/26/19) TRIMETHOPRIM (Verified Allergy, Unknown, 01/29/09) HYDROMORPHONE (Verified Adverse Reaction, Unknown, VOMITS, 06/12/12) Objective Vital Signs Last 24 Hour Vital Signs Date Time Temp Pulse Resp B/P (MAP) Pulse Ox O2 Delivery O2 Flow Rate FiO2 12/26/19 16:00 97.7 77 18 118/67 (84) 98 12/26/19 16:00 Room Air 12/26/19 16:00 86 12/26/19 12:00 75 12/26/19 12:00 Room Air 12/26/19 12:00 97.0 80 18 145/68 (93) 97 12/26/19 08:00 69 12/26/19 08:00 97.7 76 18 117/67 (84) 98 12/26/19 08:00 Room Air 12/26/19 07:00 76 20 98 Room Air 21 12/26/19 04:00 61 12/26/19 04:00 Room Air 12/26/19 04:00 97.0 78 18 125/72 (89) 99 12/26/19 00:00 Room Air 12/26/19 00:00 97.1 60 18 129/66 (87) 99 12/25/19 20:00 73 12/25/19 20:00 97.7 78 20 136/80 (98) 100 12/25/19 20:00 Room Air Height (Feet): 5 Height (Inches): 7.00 Weight (Pounds): 222 General Appearance: no acute distress HEENT: normocephalic, atraumatic, anicteric, mucous membranes moist Respiratory/Chest: lungs clear, normal breath sounds, no respiratory distress Cardiovascular: normal rate, regular rhythm, no gallop/murmur, no JVD Abdomen: normal bowel sounds, soft, non tender, no organomegaly, non distended Genitourinary: other - no diehl Extremities: no cyanosis Skin: no rash Neurologic/Psychiatric: index editor II-XII grossly normal, alert, oriented x 3, responsive Lymphatic: no neck adenopathy Musculoskeletal: no effusion Objective CT scan abdomen and pelvis: IMPRESSION: Fatty liver. Fibrosis at the lung bases Status post cholecystectomy. Mild diverticulosis of the colon. No definite diverticulitis. Other incidental findings as above Note: Evaluation of solid organs is limited on non contrast imaging. Chest x-ray - 12/24/19 - Procedure: XRAY Chest 1v EXAM: XR Chest, 1 View CLINICAL HISTORY: INFECT TECHNIQUE: Frontal view of the chest. COMPARISON: Chest x-ray 12/21/19 FINDINGS: Lungs: Mild interstitial/vascular prominence. Hypoventilatory lungs. Pleural space: Unremarkable. No pneumothorax. Heart: Cardiomegaly. Mediastinum: Unremarkable. Bones/joints: Unremarkable. IMPRESSION: Cardiomegaly. Mild interstitial/vascular prominence. Query mild CHF. Chest x-ray - 12/24/19 Procedure: XRAY Chest 1v EXAM: XR Chest, 1 View CLINICAL HISTORY: INFECT TECHNIQUE: Frontal view of the chest. COMPARISON: Chest x-ray 12/21/19 FINDINGS: Lungs: Mild interstitial/vascular prominence. Hypoventilatory lungs. Pleural space: Unremarkable. No pneumothorax. Heart: Cardiomegaly. Mediastinum: Unremarkable. Bones/joints: Unremarkable. IMPRESSION: Cardiomegaly. Mild interstitial/vascular prominence. Query mild CHF. Microbiology Date/Time Source Procedure Growth Status 12/21/19 18:36 Blood Blood Culture - Preliminary NO GROWTH AFTER 4 DAYS Resulted 12/21/19 19:00 Nasal Nares - Final Complete 12/21/19 19:00 Nasal Nares - Final Complete 12/22/19 15:11 Stool Stool Culture - Final NO SALMONELLA,SHIGELLA,OR CAMPYLOBACT... Complete 12/22/19 15:11 Stool Clostridium difficile Toxin Assay - Final Complete Microbiology Date/Time Source Procedure Growth Status 12/21/19 18:36 Blood Blood Culture - Preliminary NO GROWTH AFTER 4 DAYS Resulted 12/21/19 19:00 Nasal Nares - Final Complete 12/21/19 19:00 Nasal Nares - Final Complete 12/22/19 15:11 Stool Stool Culture - Final NO SALMONELLA,SHIGELLA,OR CAMPYLOBACT... Complete 12/22/19 15:11 Stool Clostridium difficile Toxin Assay - Final Complete Laboratory Tests Test 12/26/19 04:50 White Blood Count 3.9 K/UL (4.8-10.8) L Red Blood Count 4.10 M/UL (4.70-6.10) L Hemoglobin 13.3 G/DL (14.2-18.0) L Hematocrit 35.6 % (42.0-52.0) L Mean Corpuscular Volume 87 FL (80-99) Mean Corpuscular Hemoglobin 32.5 PG (27.0-31.0) H Mean Corpuscular Hemoglobin Concent 37.5 G/DL (32.0-36.0) H Red Cell Distribution Width 10.8 % (11.6-14.8) L Platelet Count 103 K/UL (150-450) L Mean Platelet Volume 6.4 FL (6.5-10.1) L Neutrophils (%) (Auto) 33.7 % (45.0-75.0) L Lymphocytes (%) (Auto) 49.8 % (20.0-45.0) H Monocytes (%) (Auto) 12.7 % (1.0-10.0) H Eosinophils (%) (Auto) 2.9 % (0.0-3.0) Basophils (%) (Auto) 0.9 % (0.0-2.0) Sodium Level 144 MMOL/L (136-145) Potassium Level 3.8 MMOL/L (3.5-5.1) Chloride Level 108 MMOL/L (98-107) H Carbon Dioxide Level 25 MMOL/L (21-32) Anion Gap 11 mmol/L (5-15) Blood Urea Nitrogen 14 mg/dL (7-18) Creatinine 1.0 MG/DL (0.55-1.30) Estimat Glomerular Filtration Rate > 60 mL/min (>60) Glucose Level 136 MG/DL (74-106) H Calcium Level 9.2 MG/DL (8.5-10.1) Total Bilirubin 0.3 MG/DL (0.2-1.0) Aspartate Amino Transf (AST/SGOT) 51 U/L (15-37) H Alanine Aminotransferase (ALT/SGPT) 95 U/L (12-78) H Alkaline Phosphatase 60 U/L (46-116) Total Protein 6.7 G/DL (6.4-8.2) Albumin 3.4 G/DL (3.4-5.0) Globulin 3.3 g/dL Albumin/Globulin Ratio 1.0 (1.0-2.7) Current Medications Medications (Trade) Dose Ordered Sig/Jose Cruz Route PRN Reason Start Time Stop Time Status Last Admin Dose Admin Acetaminophen (Tylenol) 650 mg Q4H PRN ORAL Mild Pain (Pain Scale 1-3) 12/22/19 00:00 01/21/20 00:00 12/25/19 09:27 Acetaminophen (Tylenol) 650 mg Q4H PRN ORAL fever 12/22/19 00:00 01/21/20 00:00 Albuterol Sulfate (Proventil MDI) 2 puff Q6H PRN INH Shortness of Breath 12/23/19 10:00 03/22/20 09:59 Aspirin (ASA) 81 mg DAILY ORAL 12/23/19 09:00 02/06/20 08:59 12/26/19 09:01 Azithromycin (Zithromax) 500 mg DAILY ORAL 12/26/19 09:00 01/02/20 08:59 12/26/19 09:01 Bisacodyl (Dulcolax) 10 mg DAILYPRN PRN RECTAL Constipation 12/22/19 00:00 03/21/20 00:00 Ceftriaxone Sodium 1 gm/ Dextrose 55 ml @ 110 mls/hr Q24H IV 12/22/19 06:00 12/29/19 05:59 12/26/19 06:24 Dextrose (Dextrose 50%) 25 ml Q30M PRN IV Hypoglycemia 12/23/19 13:15 03/22/20 13:14 Dextrose (Dextrose 50%) 50 ml Q30M PRN IV Hypoglycemia 12/23/19 13:15 03/22/20 13:14 Finasteride (Proscar) 5 mg DAILY ORAL 12/23/19 09:00 03/22/20 08:59 12/26/19 09:01 Gabapentin (Neurontin) 600 mg THREE TIMES A DAY ORAL 12/22/19 18:00 01/21/20 17:59 12/26/19 17:19 Insulin Aspart (NovoLOG) BEFORE MEALS AND HS SUBQ 12/23/19 16:30 03/22/20 16:29 12/24/19 20:35 Levothyroxine Sodium (Synthroid) 50 mcg ACBREAKFAST ORAL 12/27/19 06:30 01/26/20 06:29 Loperamide HCl (Imodium) 2 mg Q4H PRN ORAL Diarrhea 12/24/19 09:30 01/23/20 09:29 12/26/19 01:11 Lorazepam (Ativan) 2 mg Q4H PRN ORAL For Anxiety 12/23/19 17:00 12/30/19 16:59 12/26/19 09:16 Montelukast Sodium (Singulair) 10 mg DAILY ORAL 12/23/19 09:00 03/22/20 08:59 12/26/19 09:01 Ondansetron HCl (Zofran) 4 mg Q6H PRN IVP Nausea & Vomiting 12/22/19 00:00 01/21/20 00:00 12/26/19 01:11 Patient Own Medication (Patient's Own Med) 1 ea DAILY ORAL 12/22/19 20:00 01/21/20 19:59 12/26/19 09:01 Polyethylene Glycol (Miralax) 17 gm DAILYPRN PRN ORAL Constipation 12/22/19 00:00 01/21/20 00:00 Rivaroxaban (Xarelto) 10 mg DAILY ORAL 12/23/19 09:00 03/22/20 08:59 12/26/19 09:01 Sucralfate (Carafate) 1 gm FIVE TIMES A DAY ORAL 12/22/19 19:00 03/21/20 18:59 12/26/19 18:30 Tamsulosin HCl (Flomax) 0.4 mg DAILY ORAL 12/23/19 09:00 01/22/20 08:59 12/26/19 09:01 Jairo Chavez MD Dec 26, 2019 18:48
--- NOTE | 2019-12-26 19:14 | NUR ---
HAND-OFF: Report given to Gloria SETH. Pt remains stable.
--- NOTE | 2019-12-26 19:15 | NUR ---
NURSE NOTES: received pt from Min RN., pt is awake and AO x4 Citizen Of [place] speaker. pt states no pain at this moment. Right HAnd 22G IV site is clean, patent, and clean. pt is in RA without SOB. call light within reach. bed at the lowest position and locked. will continue to monitor pt with plan of care.
[2019-12-26 20:00] VITALS: BP 142/63
[2019-12-26] MEDS ORDERED: Lactobacillus-GG tablet ORAL SCH (21:00)
[2019-12-27] VITALS: BP 145/70
[2019-12-27 04:00] VITALS: BP 137/75
--- NOTE | 2019-12-27 04:34 | NUR ---
NURSE NOTES: pt is a sleep at this moment, no SOB in RA. call light within reach.
[2019-12-27] MEDS: NovoLOG Insulin Flexpen SUBQ SCH ×2 (05:38→11:30)
[2019-12-27] MEDS: cefTRIAXone 1 GM in D5W 55 ML IV SCH (05:39)
[2019-12-27 05:44] LABS: ALANINE AMINOTRANSFERASE 96 U/L (12-78); ALBUMIN 3.7 G/DL (3.4-5.0); ALKALINE PHOSPHATASE 90 U/L (46-116); AMYLASE 67 U/L (25-115); ANION GAP 10 mmol/L (5-15); ASPARTATE AMINO TRANSFERASE 39 U/L (15-37); BILIRUBIN,TOTAL 0.3 MG/DL (0.2-1.0); BLOOD UREA NITROGEN 18 mg/dL (7-18); CALCIUM 9.4 MG/DL (8.5-10.1); CARBON DIOXIDE 27 MMOL/L (21-32); CHLORIDE 105 MMOL/L (98-107); CREATININE 1.1 MG/DL (0.55-1.30); POTASSIUM 3.9 MMOL/L (3.5-5.1); SODIUM 141 MMOL/L (136-145)
[2019-12-27 05:46] LABS: BASOPHILS % (AUTO) 0.7 % (0.0-2.0); EOSINOPHILS % (AUTO) 2.5 % (0.0-3.0); HEMATOCRIT 38.8 % (42.0-52.0); HEMOGLOBIN 14.2 G/DL (14.2-18.0); LYMPHOCYTES % (AUTO) 44.9 % (20.0-45.0); MEAN CORPUSCULAR VOLUME 87 FL (80-99); MONOCYTES % (AUTO) 10.2 % (1.0-10.0); NEUTROPHILS % (AUTO) 41.8 % (45.0-75.0); PLATELET COUNT 117 K/UL (150-450); RED BLOOD COUNT 4.45 M/UL (4.70-6.10); RED CELL DISTRIBUTION WIDTH 10.5 % (11.6-14.8); WHITE BLOOD COUNT 3.8 K/UL (4.8-10.8)
[2019-12-27] MEDS: Sucralfate 1gm tab ORAL SCH ×3 (06:07→13:27)
--- NOTE | 2019-12-27 06:40 | NUR ---
NURSE NOTES: left voice mail to Dr. Resendez regarding magnesium level 1.6. will wait for call back.
--- NOTE | 2019-12-27 06:56 | NUR ---
NURSE NOTES: per Dr. Kaur start Mag 2G via IV. noted. will carry on.
--- NOTE | 2019-12-27 07:10 | NUR ---
HAND-OFF: Report given to Dillon RN., pt in stable condition. endorsed plan of care.
--- NOTE | 2019-12-27 07:11 | NUR ---
NURSE NOTES: Received patient from So Ri RN, patient is asleep, easily awoken by voice, alert and oriented x4. Receiving oxygen via room air, no signs of respiratory distress. IV site is right hand 22g patent and intact. Bed is locked, placed in lowest position, side rails up x2, bed alarm on, call light within reach. Will continue to monitor.
[2019-12-27 08:00] VITALS: BP 125/69
[2019-12-27] MEDS: Azithromycin 250mg tab ORAL SCH (08:14)
[2019-12-27] MEDS: JULUCA ORAL SCH (08:14)
[2019-12-27] MEDS: Montelukast 10mg tablet ORAL SCH (08:14)
[2019-12-27] MEDS: Tamsulosin 0.4mg cap ORAL SCH (08:15)
[2019-12-27] MEDS: Xarelto 10mg tab ORAL SCH (08:15)
[2019-12-27] MEDS: Aspirin Baby 81mg ORAL SCH (08:15)
--- NOTE | 2019-12-27 08:41 | General Progress Note ---
Assessment/Plan Assessment/Plan: PROBLEM LIST: 1. Diabetes. 2. HIV. 3. Hypertension. 4. Renal insufficiency. 5. Abnormal liver function tests. 6. Fatty liver. 7. History of cholecystectomy. 8. Diverticulosis 9. Diarrhea CT and us reviewed stool studies >>> NEG >>> prn imodium elevated lipase >>> improved normal amylase DM control LFTS>>> improving>>> neg hepatitis panel fu ID recs repeat labs in am Subjective Allergies: Coded Allergies: ABACAVIR (Verified Allergy, Unknown, 01/26/19) DIDANOSINE (Verified Allergy, Unknown, 01/26/19) EFAVIRENZ (Verified Allergy, Unknown, 01/26/19) FOSAMPRENAVIR (Verified Allergy, Unknown, 01/26/19) INDINAVIR (Verified Allergy, Unknown, 01/26/19) SULFAMETHOXAZOLE (Verified Allergy, Unknown, 01/26/19) TRIMETHOPRIM (Verified Allergy, Unknown, 01/29/09) HYDROMORPHONE (Verified Adverse Reaction, Unknown, VOMITS, 06/12/12) Subjective diarrhea Objective Last 24 Hour Vital Signs Date Time Temp Pulse Resp B/P (MAP) Pulse Ox O2 Delivery O2 Flow Rate FiO2 12/27/19 04:00 97.5 71 20 137/75 (95) 100 12/27/19 04:00 Room Air 12/27/19 03:32 61 12/27/19 00:00 68 12/27/19 00:00 Room Air 12/27/19 00:00 97.7 67 18 145/70 (95) 99 12/26/19 20:00 97.5 77 18 142/63 (89) 98 12/26/19 20:00 Room Air 12/26/19 19:05 81 20 96 Room Air 21 12/26/19 19:02 70 12/26/19 16:00 97.7 77 18 118/67 (84) 98 12/26/19 16:00 Room Air 12/26/19 16:00 86 12/26/19 12:00 75 12/26/19 12:00 Room Air 12/26/19 12:00 97.0 80 18 145/68 (93) 97 Intake and Output 12/26/19 12/27/19 19:00 07:00 Intake Total 500 ml 900 ml Balance 500 ml 900 ml Intake Oral 500 ml 900 ml # Voids 2 3 Laboratory Tests 12/27/19 03:30: White Blood Count 3.8L, Red Blood Count 4.45L, Hemoglobin 14.2, Hematocrit 38.8L , Mean Corpuscular Volume 87, Mean Corpuscular Hemoglobin 31.8H, Mean Corpuscular Hemoglobin Concent 36.5H, Red Cell Distribution Width 10.5L, Platelet Count 117L, Mean Platelet Volume 6.8, Neutrophils (%) (Auto) 41.8L, Lymphocytes (%) (Auto) 44.9, Monocytes (%) (Auto) 10.2H, Eosinophils (%) (Auto) 2.5, Basophils (%) (Auto) 0.7, Sodium Level 141, Potassium Level 3.9, Chloride Level 105, Carbon Dioxide Level 27, Anion Gap 10, Blood Urea Nitrogen 18, Creatinine 1.1, Estimat Glomerular Filtration Rate > 60, Glucose Level 153H, Calcium Level 9.4, Magnesium Level 1.6L, Total Bilirubin 0.3, Aspartate Amino Transf (AST/SGOT) 39H, Alanine Aminotransferase (ALT/SGPT) 96H, Alkaline Phosphatase 90, Total Protein 7.4, Albumin 3.7, Globulin 3.7, Albumin/Globulin Ratio 1.0, Amylase Level 67, Lipase 364 Height (Feet): 5 Height (Inches): 7.00 Weight (Pounds): 222 General Appearance: no apparent distress EENT: normal ENT inspection Neck: supple Cardiovascular: normal rate Respiratory/Chest: decreased breath sounds Abdomen: normal bowel sounds, non tender, soft Extremities: non-tender Jose Roberto Ruff MD Dec 27, 2019 08:41
--- NOTE | 2019-12-27 08:44 | General Progress Note ---
Assessment/Plan Assessment/Plan: 69 year old man with HIV,hypertension, COPD, diabetes, lymphoma, BPH who presents to the ER with complaints of abdominal discomfort and persistent diarrhea, found to have YRN. #Sepsis #CAP #Abdominal pain, N/V, diarrhea, negative CT A/P and US abd #AIDS -continue inpatient medical care -Stool studies negative -follow up COVID19 testing -GI and ID following -continue azithromycin and ceftriaxone -follow up blood cultures -continue home ART #Transaminitis - downtrending -hep panel negative -GI following, reccs appreciated #YRN - resolved -hold ACEI, diuretics, NSAIDS -Nephrology consult appreciated #COPD -not in acute exacerbation -Duoneb prn #BPH -cont Proscar and Flomax -monitor urine output #DM type 2 -metformin on hold -diabetic diet -ISS I spent 35 minutes on this patient's case, and >50% was dedicated to counseling and/or care coordination. Subjective Allergies: Coded Allergies: ABACAVIR (Verified Allergy, Unknown, 01/26/19) DIDANOSINE (Verified Allergy, Unknown, 01/26/19) EFAVIRENZ (Verified Allergy, Unknown, 01/26/19) FOSAMPRENAVIR (Verified Allergy, Unknown, 01/26/19) INDINAVIR (Verified Allergy, Unknown, 01/26/19) SULFAMETHOXAZOLE (Verified Allergy, Unknown, 01/26/19) TRIMETHOPRIM (Verified Allergy, Unknown, 01/29/09) HYDROMORPHONE (Verified Adverse Reaction, Unknown, VOMITS, 06/12/12) Subjective Follow up for sepsis, CAP, YRN, lactic acidosis, abdominal pain and diarrhea. No acute events overnight. No F/C, cough. Objective Last 24 Hour Vital Signs Date Time Temp Pulse Resp B/P (MAP) Pulse Ox O2 Delivery O2 Flow Rate FiO2 12/27/19 04:00 97.5 71 20 137/75 (95) 100 12/27/19 04:00 Room Air 12/27/19 03:32 61 12/27/19 00:00 68 12/27/19 00:00 Room Air 12/27/19 00:00 97.7 67 18 145/70 (95) 99 12/26/19 20:00 97.5 77 18 142/63 (89) 98 12/26/19 20:00 Room Air 12/26/19 19:05 81 20 96 Room Air 21 12/26/19 19:02 70 12/26/19 16:00 97.7 77 18 118/67 (84) 98 12/26/19 16:00 Room Air 12/26/19 16:00 86 12/26/19 12:00 75 12/26/19 12:00 Room Air 12/26/19 12:00 97.0 80 18 145/68 (93) 97 Intake and Output 12/26/19 12/27/19 19:00 07:00 Intake Total 500 ml 900 ml Balance 500 ml 900 ml Intake Oral 500 ml 900 ml # Voids 2 3 Laboratory Tests 12/27/19 03:30: White Blood Count 3.8L, Red Blood Count 4.45L, Hemoglobin 14.2, Hematocrit 38.8L , Mean Corpuscular Volume 87, Mean Corpuscular Hemoglobin 31.8H, Mean Corpuscular Hemoglobin Concent 36.5H, Red Cell Distribution Width 10.5L, Platelet Count 117L, Mean Platelet Volume 6.8, Neutrophils (%) (Auto) 41.8L, Lymphocytes (%) (Auto) 44.9, Monocytes (%) (Auto) 10.2H, Eosinophils (%) (Auto) 2.5, Basophils (%) (Auto) 0.7, Sodium Level 141, Potassium Level 3.9, Chloride Level 105, Carbon Dioxide Level 27, Anion Gap 10, Blood Urea Nitrogen 18, Creatinine 1.1, Estimat Glomerular Filtration Rate > 60, Glucose Level 153H, Calcium Level 9.4, Magnesium Level 1.6L, Total Bilirubin 0.3, Aspartate Amino Transf (AST/SGOT) 39H, Alanine Aminotransferase (ALT/SGPT) 96H, Alkaline Phosphatase 90, Total Protein 7.4, Albumin 3.7, Globulin 3.7, Albumin/Globulin Ratio 1.0, Amylase Level 67, Lipase 364 Height (Feet): 5 Height (Inches): 7.00 Weight (Pounds): 222 Objective General Appearance: alert, awake, NAD, sitting up in bed eating lunch Neck: normal alignment, supple Cardiovascular: normal rate, regular rhythm Respiratory/Chest: lungs clear, normal breath sounds, no respiratory distress Abdomen: non tender, soft, NT/ND 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 Dec 27, 2019 08:44
--- NOTE | 2019-12-27 09:18 | NUR ---
NURSE NOTES: Patient is awake, eating breakfast in bed, denies any pain. Medications administered as ordered. Patient requested another breakfast tray, dietary was contacted and second breakfast was provided. Will continue to monitor.
--- NOTE | 2019-12-27 10:04 | Nephrology Progress Note ---
Assessment/Plan Plan #acute kidney injury likely due to pre-renal azotemia in the setting of sepsis #lactic acidosis- resolved # HIV #HTN #DM #BPH - DC IVF - replete lytes prn - on abx - ceftriaxone and azithro - hold lisinopril for now -> monitor BP - hold metformin for now-. Monitor BG - continue flomax - avoid nephrotoxins - avoid NSAIDs Subjective Subjective Cr stable mag low repleted labs reviewed BP stable no abd pain no nausea or emesis stool studies negative Objective Objective Last 24 Hour Vital Signs Date Time Temp Pulse Resp B/P (MAP) Pulse Ox O2 Delivery O2 Flow Rate FiO2 12/27/19 08:00 97.7 68 18 125/69 (87) 99 12/27/19 08:00 Room Air 12/27/19 07:43 69 12/27/19 04:00 97.5 71 20 137/75 (95) 100 12/27/19 04:00 Room Air 12/27/19 03:32 61 12/27/19 00:00 68 12/27/19 00:00 Room Air 12/27/19 00:00 97.7 67 18 145/70 (95) 99 12/26/19 20:00 97.5 77 18 142/63 (89) 98 12/26/19 20:00 Room Air 12/26/19 19:05 81 20 96 Room Air 21 12/26/19 19:02 70 12/26/19 16:00 97.7 77 18 118/67 (84) 98 12/26/19 16:00 Room Air 12/26/19 16:00 86 12/26/19 12:00 75 12/26/19 12:00 Room Air 12/26/19 12:00 97.0 80 18 145/68 (93) 97 Intake and Output 12/26/19 12/27/19 19:00 07:00 Intake Total 500 ml 900 ml Balance 500 ml 900 ml Intake Oral 500 ml 900 ml # Voids 2 3 Laboratory Tests 12/27/19 03:30: White Blood Count 3.8L, Red Blood Count 4.45L, Hemoglobin 14.2, Hematocrit 38.8L , Mean Corpuscular Volume 87, Mean Corpuscular Hemoglobin 31.8H, Mean Corpuscular Hemoglobin Concent 36.5H, Red Cell Distribution Width 10.5L, Platelet Count 117L, Mean Platelet Volume 6.8, Neutrophils (%) (Auto) 41.8L, Lymphocytes (%) (Auto) 44.9, Monocytes (%) (Auto) 10.2H, Eosinophils (%) (Auto) 2.5, Basophils (%) (Auto) 0.7, Sodium Level 141, Potassium Level 3.9, Chloride Level 105, Carbon Dioxide Level 27, Anion Gap 10, Blood Urea Nitrogen 18, Creatinine 1.1, Estimat Glomerular Filtration Rate > 60, Glucose Level 153H, Calcium Level 9.4, Magnesium Level 1.6L, Total Bilirubin 0.3, Aspartate Amino Transf (AST/SGOT) 39H, Alanine Aminotransferase (ALT/SGPT) 96H, Alkaline Phosphatase 90, Total Protein 7.4, Albumin 3.7, Globulin 3.7, Albumin/Globulin Ratio 1.0, Amylase Level 67, Lipase 364 Height (Feet): 5 Height (Inches): 7.00 Weight (Pounds): 222 Objective General Appearance: WD/WN, no apparent distress Lines, tubes and drains: peripheral HEENT: normocephalic, atraumatic Neck: non-tender, supple Respiratory/Chest: chest wall non-tender, lungs clear Cardiovascular/Chest: normal peripheral pulses, normal rate, regular rhythm Abdomen: normal bowel sounds, non tender, soft Neurologic: alert, oriented x 3 Antoine Martinez M.D. Dec 27, 2019 10:04
--- NOTE | 2019-12-27 11:43 | NUR ---
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 97.5 HR 77 RR 18 B/P 142/83 RA 98% AST 39 ALT 96 COVID-19 PENDING IS: MAGNESIUM IV CEFTRIAXONE IV FLOMAX AZITHROMAX PO DROPLET ISOLATION STEP DOWN STATUS
[2019-12-27 12:00] VITALS: BP 141/68
--- NOTE | 2019-12-27 12:28 | NUR ---
NURSE NOTES: Patient's blood glucose level was 130 mg/dL, no coverage based on sliding scale. Patient denies any pain, eating lunch at bedside, will continue to monitor.
[2019-12-27] MEDS ORDERED: LEVAQUIN750 MG ORAL (13:49)
--- NOTE | 2019-12-27 13:52 | Discharge Instructions ---
Discharge Instructions Discharge Instructions Follow up with: f/u w/PCP in 1 week for repeat CMP/LFT test. F/u w/ your choice GI. Call MD/Return to Hospital if: symptoms worsen. Activity: resume normal activities Follow Up Orders f/u w/PCP in 1 week for repeat blood work and follow up on LFT's. F/u w/GI of your choice for elevated LFTs. For Congestive Heart Failure Reminder Report to your physician any weight gain of 5 pounds or more in one week. Vasquez Shah M.D. Dec 27, 2019 13:52
--- NOTE | 2019-12-27 13:55 | Discharge Summary ---
Discharge Summary Hospital Course Date of Admission Dec 22, 2019 at 05:20 Date of Discharge Admitting Diagnosis RENAL INSUFFIENCY HPI Zain Rebolledo is a 69 year old male who was admitted on Dec 22, 2019 at 05: 20 for Renal Insuffiency Hospital Course 69 year old man with HIV,hypertension, COPD, diabetes, lymphoma, BPH who presents to the ER with complaints of abdominal discomfort and persistent diarrhea, found to have YRN. On admission, patient was found to be septic, concerning for community-acquired pneumonia, patient was treated with azithromycin and ceftriaxone. ID was consulted and patient was placed under droplet precautions for Covidien 19 rule out. Patient was ruled out for code with 19, had symptomatic improvement and discussed with ID where patient will be treated for Levaquin for 3 more days. Patient noted with loose stools, stool studies were negative and patient was given Imodium for symptomatic relief. Of note, patient with history of HIV, continued ART treatment, no COPD exacerbation. Throughout hospital stay patient was noted to have elevated LFTs which were downtrending. Hepatitis panel was negative, CT abdomen revealed fatty liver. Discussed with GI, patient stable for DC with follow-up repeat LFTs. Patient in stable condition for DC home w/ PO levaquin x3 days, patient instructed to follow-up with PCP and/or GI of his choice for repeat LFTs in 1 week. DC planning >30 mins. Discharge Medications New Medications: Levofloxacin* (Levaquin*) 750 Mg Tablet 750 MG ORAL DAILY for 3 Days, #3 TAB Continued Medications: Aspirin (Aspirin) 81 Mg Tab.chew 81 MG PO DAILY, TAB Diphenhydramine Hcl (Diphenhydramine Hcl) 50 Mg Capsule 50 MG ORAL BEDTIME PRN for Itching, #30 CAP 0 Refills Docusate Sodium* (Docusate Sodium*) 100 Mg Capsule 100 MG ORAL THREE TIMES A DAY for constipation, CAP Dolutegravir/Rilpivirine (Juluca 50-25 Mg Tablet) 1 Each Tablet 1 EACH PO DAILY for HIV, TAB Finasteride (Finasteride) 5 Mg Tablet DAILY, #30 Furosemide* (Lasix*) 20 Mg Tablet 20 MG ORAL DAILY, TAB Gabapentin* (Gabapentin*) 600 Mg Tablet 600 MG ORAL THREE TIMES A DAY for neuropathy, TAB Levothyroxine Sodium* (Synthroid*) 25 Mcg Tablet 50 MCG ORAL AC for hypothyroid, TAB Take in the morning on an empty stomach, at least 30 minutes before food. Lisinopril* (Lisinopril*) 10 Mg Tablet 10 MG ORAL DAILY for blood pressure, TAB Loperamide Hcl/Simethicone (Imodium Multi-Symptom Rel Cplt) 1 Each Tablet 1 EACH PO for diarrhea, TAB Metformin Hcl* (Metformin Hcl*) 500 Mg Tablet 500 MG ORAL TWICE A DAY for diabetes, TAB Montelukast Sodium* (Montelukast Sodium*) 10 Mg Tablet 10 MG ORAL DAILY for asthma, TAB Niacin (Niacin) 500 Mg Capsule.er 500 MG PO DAILY, CAP Pitavastatin Calcium (Livalo) 4 Mg Tablet 4 MG PO for cholesterol, TAB Ranitidine Hcl* (Zantac*) 150 Mg Tablet 150 MG ORAL DAILY, #30 TAB 0 Refills Rivaroxaban (Xarelto*) 10 Mg Tablet 10 MG PO DAILY Sucralfate* (Carafate*) 1 Gm Tablet 1 GM ORAL FIVE TIMES A DAY Tamsulosin HCl (Flomax) 0.4 Mg Cap.er.24h 0.4 MG ORAL DAILY for BPH, CAP Discontinued Medications: Diphenoxylate HCl/Atropine (Lomotil Tablet) 1 Each Tablet 1 EACH PO for diarrhea, TAB Finasteride* (Proscar*) 5 Mg Tablet 5 MG ORAL DAILY for bph, #30 TAB 0 Refills Montelukast Sodium* (Montelukast Sodium*) 10 Mg Tablet DAILY, #30 Pitavastatin Calcium (Livalo) 4 Mg Tablet 4 MG PO HS, TAB Discharge Condition Upon Discharge: stable Discharge Vital Signs Last Vital Signs Date Time Temp Pulse Resp B/P (MAP) Pulse Ox O2 Delivery O2 Flow Rate FiO2 12/27/19 12:00 96.8 97 20 141/68 (92) 97 12/27/19 12:00 Room Air 12/26/19 19:05 21 Discharge Disposition Patient was discharged to home. Discharge Diagnoses: (1) Hypertension (2) Transaminitis (3) HIV (human immunodeficiency virus infection) (4) Pneumonia (5) Abdominal pain (6) COPD (chronic obstructive pulmonary disease) (7) URI (upper respiratory infection) Discharge Instructions Discharge Instructions Follow up with: f/u w/PCP in 1 week for repeat CMP/LFT test. F/u w/ your choice GI. Call MD/Return to Hospital if: symptoms worsen. Activity: resume normal activities Vasquez Shah M.D. Dec 27, 2019 13:55
== END 2019-12-27 15:53 | disposition home or self-care (01) | DRG 975 ==
LOC: EMR 17:27 → 3E 20:21 → UNDOADMIN 20:21 → EDBEDREQ 21:30 → 2W 12-22 05:20
DX: A41.9 Sepsis, unspecified organism (principal); B20 Human immunodeficiency virus [HIV] disease; N17.9 Acute kidney failure, unspecified; J18.9 Pneumonia, unspecified organism; R74.0 Nonspecific elevation of levels of transaminase and lactic acid dehydrogenase [LDH]; K57.90 Diverticulosis of intestine, part unspecified, without perforation or abscess without bleeding; Z88.1 Allergy status to other antibiotic agents; Z88.2 Allergy status to sulfonamides; Z88.8 Allergy status to other drugs, medicaments and biological substances; I10 Essential (primary) hypertension; J44.9 Chronic obstructive pulmonary disease, unspecified; Z85.72 Personal history of non-Hodgkin lymphomas; N40.0 Benign prostatic hyperplasia without lower urinary tract symptoms; Z79.82 Long term (current) use of aspirin; R19.7 Diarrhea, unspecified
CPT/HCPCS: 36415; 71045; 74176; 76700; 80048; 80053; 81003; 82009; 82150; 82803; 82962; 83605; 83690; 83735; 83880; 84100; 84484; 85025; 85610; 85730; 86360; 86705; 86709; 86710; 86803; 87040; 87045; 87324; 87340; 93005; 94664; 96361; 96365; 96367; 96375; 99291; J1815; J2405; J7030; J8499